=== PATIENT | male | born 1935 | race Caucasian/White ===

== ENCOUNTER 2017-07-29 10:09 | Emergency (ER) | payer MEDICARE, BC ==
[2017-07-29] MEDS ORDERED: Ketorolac 30 MG/ML SDV IM ONE (10:56)
[2017-07-29] MEDS ORDERED: Cyclobenzaprine 10 MG Tab PO ONE (11:01)
[2017-07-29] MEDS ORDERED: Acetaminophen 500 MG Tab PO ONE (11:02)
--- NOTE | 2017-07-29 11:13 | EDM.PDOC ---
ED HPI GENERAL MEDICAL PROBLEM - General Chief Complaint: Back Pain or Injury Stated Complaint: BACK PAIN Time Seen by Provider: 07/29/17 10:45 Source of Information: Reports: Patient History Limitations: Reports: No Limitations - History of Present Illness INITIAL COMMENTS - FREE TEXT/NARRATIVE: c/o LBP x yrs, inc'd x 2d inc'd pain x 2d at L iliac crest into L groin, not down leg, now very stiff he tried an old pain patch that did not help last saw PCP Dr Diallo 1y ago, did have an injection into the back for the 1st time this past summer that did not help has had back surgery x 3 MRI l-spine 09-17-16 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 and moderate loss disc height L5-S1, no new changes last BM 2d ago h/o kidney stones in distant past, no urinary sxs L lower back radiating into LLQ Pain Score (Numeric/FACES): 5 - Related Data Allergies Allergy/AdvReac Type Severity Reaction Status Date / Time pantoprazole sodium Allergy Rash Verified 07/29/17 10:56 [From Protonix] Sulfa (Sulfonamide Allergy Rash Verified 07/29/17 10:56 Antibiotics) Home Meds: Home Meds Calcium Carbonate [Tums] 1,000 mg PO ASDIRECTED PRN 11/22/14 [History] Dorzolamide/Timolol [Cosopt 2%-0.5% Ophth Soln] 1 drop EYEBOTH Q48H 11/22/14 [ History] Lactulose 15 ml PO DAILY 11/22/14 [History] Lipoflavonoid Plus 1 tab PO DAILY 11/22/14 [History] Polyethylene Glycol 3350 [MiraLAX] 1 capful PO DAILY PRN 11/22/14 [History] Sennosides/Docusate Sodium [Sennosides-Docusate Sodium] 1 tab PO DAILY 11/22/14 [History] Zolpidem [Ambien] 10 mg PO BEDTIME 11/22/14 [History] Ciclopirox Olamine [Ciclopirox] 1 applic DAILY 07/29/17 [History] Cyclobenzaprine [Flexeril] 10 mg PO TID PRN #21 tab 07/29/17 [Rx] Social & Family History - Tobacco Use Smoking Status *Q: Never Smoker - Alcohol Use Days Per Week of Alcohol Use: 1 Number of Drinks Per Day: 1 Total Drinks Per Week: 1 - Recreational Drug Use Recreational Drug Use: No Drug Use in Last 12 Months: No ED ROS GENERAL - Review of Systems Review Of Systems: See Below Constitutional: Reports: No Symptoms HEENT: Reports: No Symptoms Respiratory: Reports: No Symptoms Cardiovascular: Reports: No Symptoms Endocrine: Reports: No Symptoms GI/Abdominal: Reports: No Symptoms : Reports: No Symptoms Musculoskeletal: Reports: Back Pain Skin: Reports: No Symptoms Neurological: Reports: No Symptoms Psychiatric: Reports: No Symptoms Hematologic/Lymphatic: Reports: No Symptoms Immunologic: Reports: No Symptoms ED EXAM,LOWER BACK PAIN/INJURY - Physical Exam Exam: See Below Exam Limited By: No Limitations General Appearance: Alert, WD/WN, Moderate Distress GI/Abdominal: Normal Bowel Sounds, Soft, Non-Tender, No Distention (Male) Exam: No Hernia Back Exam: Other (lying stiffly on bed, lifts himself a few inches off of bed with some difficulty, l-spine NT, paravertebral muscles are tight, 1+ tender at L iliac crest, SLR to 45 degrees on L without limitation, patella DTRs could not be ilicted) Course - Vital Signs Last Recorded V/S: Last Vital Signs Temp 36.3 C 07/29/17 10:09 Pulse 79 07/29/17 10:09 Resp 20 07/29/17 10:09 BP 186/88 H 07/29/17 10:09 Pulse Ox 97 07/29/17 10:09 - Orders/Labs/Meds Orders: Active Orders 24 hr Category Date Time Status Abdomen Pelvis wo Cont [CT] Stat Exams 07/29/17 12:20 Ordered Labs: Laboratory Tests 07/29/17 07/29/17 07/29/17 Range/Units 11:19 11:19 11:19 WBC 8.5 (4.5-12.0) X10-3/uL RBC 5.26 (4.30-5.75) x10(6)uL Hgb 14.6 (11.5-15.5) g/dL Hct 43.5 (30.0-51.3) % MCV 82.7 (80-96) fL MCH 27.8 (27.7-33.6) pg MCHC 33.6 (32.2-35.4) g/dL RDW 12.8 (11.5-15.5) % Plt Count 140 (125-369) X10(3)uL MPV 8.8 (7.4-10.4) fL Neut % (Auto) 71.2 (46-82) % Lymph % (Auto) 19.8 (13-37) % Lamb % (Auto) 6.9 (4-12) % Eos % (Auto) 2 (1.0-5.0) % Baso % (Auto) 0 (0-2) % Neut # (Auto) 6.1 (1.6-8.3) # Lymph # (Auto) 1.7 (0.6-5.0) # Lamb # (Auto) 0.6 (0.0-1.3) # Eos # (Auto) 0.1 (0.0-0.8) # Baso # (Auto) 0.0 (0.0-0.2) # Sodium 140 (135-145) mmol/L Potassium 4.4 (3.5-5.3) mmol/L Chloride 103 (100-110) mmol/L Carbon Dioxide 27 (21-32) mmol/L BUN 19 H (7-18) mg/dL Creatinine 1.2 (0.70-1.30) mg/dL Est Cr Clr Drug Dosing 50.69 mL/min Estimated GFR (MDRD) 58 L (>60) BUN/Creatinine Ratio 15.8 (9-20) Glucose 94 (80-116) mg/dL Calcium 8.8 (8.6-10.2) mg/dL Total Bilirubin 0.8 (0.1-1.3) mg/dL AST 17 (5-25) IU/L ALT 21 (12-36) U/L Alkaline Phosphatase 68 (56-112) IU/L C-Reactive Protein < 0.2 L (0.5-0.9) mg/dL Total Protein 6.4 (6.0-8.0) g/dL Albumin 3.8 (3.2-4.6) g/dL Globulin 2.6 g/dL Albumin/Globulin Ratio 1.5 Urine Color (YELLOW) Urine Appearance (CLEAR) Urine pH (5.0-6.5) Ur Specific [place] (1.010-1.025) Urine Protein (NEGATIVE) mg/dL Urine Glucose (UA) (NEGATIVE) mg/dL Urine Ketones (NEGATIVE) mg/dL Urine Occult Blood (NEGATIVE) Urine Nitrite (NEGATIVE) Urine Bilirubin (NEGATIVE) Urine Urobilinogen (NEGATIVE) mg/dL Ur Leukocyte Esterase (NEGATIVE) Urine RBC (0) Urine WBC (0) Ur Squamous Epith Cells (NS,R,O) Urine Bacteria (NS) Acetaminophen (10-30) ug/mL 07/29/17 07/29/17 Range/Units 11:19 11:55 WBC (4.5-12.0) X10-3/uL RBC (4.30-5.75) x10(6)uL Hgb (11.5-15.5) g/dL Hct (30.0-51.3) % MCV (80-96) fL MCH (27.7-33.6) pg MCHC (32.2-35.4) g/dL RDW (11.5-15.5) % Plt Count (125-369) X10(3)uL MPV (7.4-10.4) fL Neut % (Auto) (46-82) % Lymph % (Auto) (13-37) % Lamb % (Auto) (4-12) % Eos % (Auto) (1.0-5.0) % Baso % (Auto) (0-2) % Neut # (Auto) (1.6-8.3) # Lymph # (Auto) (0.6-5.0) # Lamb # (Auto) (0.0-1.3) # Eos # (Auto) (0.0-0.8) # Baso # (Auto) (0.0-0.2) # Sodium (135-145) mmol/L Potassium (3.5-5.3) mmol/L Chloride (100-110) mmol/L Carbon Dioxide (21-32) mmol/L BUN (7-18) mg/dL Creatinine (0.70-1.30) mg/dL Est Cr Clr Drug Dosing mL/min Estimated GFR (MDRD) (>60) BUN/Creatinine Ratio (9-20) Glucose (80-116) mg/dL Calcium (8.6-10.2) mg/dL Total Bilirubin (0.1-1.3) mg/dL AST (5-25) IU/L ALT (12-36) U/L Alkaline Phosphatase (56-112) IU/L C-Reactive Protein (0.5-0.9) mg/dL Total Protein (6.0-8.0) g/dL Albumin (3.2-4.6) g/dL Globulin g/dL Albumin/Globulin Ratio Urine Color Yellow (YELLOW) Urine Appearance Clear (CLEAR) Urine pH 6.0 (5.0-6.5) Ur Specific [place] 1.015 (1.010-1.025) Urine Protein Negative (NEGATIVE) mg/dL Urine Glucose (UA) Normal (NEGATIVE) mg/dL Urine Ketones Negative (NEGATIVE) mg/dL Urine Occult Blood Negative (NEGATIVE) Urine Nitrite Negative (NEGATIVE) Urine Bilirubin Negative (NEGATIVE) Urine Urobilinogen Normal (NEGATIVE) mg/dL Ur Leukocyte Esterase Negative (NEGATIVE) Urine RBC 0-5 (0) Urine WBC Not seen (0) Ur Squamous Epith Cells Rare (NS,R,O) Urine Bacteria Rare H (NS) Acetaminophen < 2 L (10-30) ug/mL Meds: Medications Discontinued Medications Generic Name Dose Route Start Last Admin Trade Name Freq PRN Reason Stop Dose Admin Acetaminophen 1,000 mg 07/29/17 11:02 07/29/17 11:21 Tylenol Extra Strength PO 07/29/17 11:03 1,000 mg ONETIME ONE Administration Cyclobenzaprine HCl 10 mg 07/29/17 11:01 07/29/17 11:21 Flexeril PO 07/29/17 11:02 10 mg ONETIME ONE Administration Ketorolac Tromethamine 30 mg 07/29/17 10:56 07/29/17 11:22 Toradol IM 07/29/17 10:57 30 mg ONETIME ONE Administration - Re-Assessments/Exams Free Text/Narrative Re-Assessment/Exam: 07/29/17 13:27 CT abd/pelvis without obtained as pt had 0-5 RBC on u/a and had 2 kidney stones removed by Dr Núñez this past spring, however CT was neg for stones, did show enlarged bladder with 10 x 12 x 15 cm and small prostate. Pt had a large void on return from CT and bladder scan showed only 275 cc, pt did have relief of pressure in his groin. h/o prostate CA 2011 with radiation, never had a garay catheter after meds (Toradol, APAP, Flexeril) back is now quite soft without tenderness, spasm is relieved pain most c/w muscle spasm secondary to his extensive lumbar DJD (fusion L3-[address]) Departure - Departure Time of Disposition: 13:31 Disposition: Home, Self-Care 01 Condition: Good Clinical Impression: Back muscle spasm - Discharge Information Prescriptions: Cyclobenzaprine [Flexeril] 10 mg PO TID PRN #21 tab PRN Reason: Pain Instructions: Muscle Cramps and Spasms Forms: ED Department Discharge Additional Instructions: For pain and inflammation, take acetaminophen 500 mg 2 tabs 4 times a day for 1 week, longer if needed. For back spasm, take cyclobenzaprine 10 mg 1 tab 3 times a day as needed. Use ice for 10 minutes 4 times a day. Sleep on a firm mattress. See your doctor in 1 week. Call your Physician or Return to Emergency Department if: * Your condition worsens in any way. * You develop fever greater than 100.4. * You have vomitting that does not stop with medications. * You have pain that is not controlled with medications. - My Orders Last 24 Hours: My Active Orders 07/29/17 12:20 Abdomen Pelvis wo Cont [CT] Stat - Assessment/Plan Last 24 Hours: My Active Orders 07/29/17 12:20 Abdomen Pelvis wo Cont [CT] Stat
--- NOTE | 2017-07-29 14:04 | CT ---
INDICATION: Left flank and groin pain, hematuria, history of kidney stones. CT ABDOMEN AND PELVIS WITHOUT CONTRAST: Spiral 1.25-mm axial sections were obtained through the abdomen and pelvis with sagittal and coronal reconstructions, with renal calculus protocol, 07/29/2017, and compared with . Total Exam DLP = 1738.56 mGy-cm. There is some linear density at the middle lobe, which may represent fibrosis and possibly some linear atelectasis. A definite active infiltrate or effusion was not identified. The gallbladder is absent, compatible with history of its removal. The heart appeared to be slightly prominent in size and probably somewhat increased in size, compared with the previous examination of 2010 (02/06/2011). The liver was unremarkable. The common bile duct is normal in caliber post cholecystectomy. The pancreas is relatively diminutive in size, as previously. The spleen was unremarkable. The adrenal glands appear essentially unchanged and most likely within normal limits. There is question of a small adrenal adenoma on the left, however. No definite retroperitoneal masses were identified. Retroperitoneal lymphadenopathy is mild and nonspecific. Calcifications are noted in the aorta, iliac, and splenic arteries. Multicystic changes are noted in the kidneys, with increased size of the cysts in general. An upper pole cyst on the right measured a maximum craniocaudad of 43 mm by approximately 3 cm maximum. This cyst extends in an elongated oval into the parapelvic area slightly. It is not obstructive. Another 29-mm cyst is noted posteriorly mostly exophytic off the cortex of the lower middle pole of the right kidney. It measures approximately 32 mm maximally and craniocaudad diameter, with only 29 mm transversely. A 23-mm cyst of the lateral posterior cortex, mostly exophytic, in the left kidney is noted, also appearing increased in size, compared with the previous examination. There is suggestion of a very tiny cyst anteriorly off the upper pole of the left kidney. Multiple calculi are noted in the kidneys, measuring 1.9 mm posterior mid pole right kidney and 5.6 x 11 mm in the upper middle pole posteriorly of the right kidney. A very tiny additional calculus medial cortex is noted in the right kidney on axial image #108. An additional 3.4-mm calculus is noted in the anterolateral lower middle pole cortex of the right kidney. At the left kidney, there is a 2-mm and a 3.8 mm calculus posteriorly and posterolaterally respectively in the mid pole, with a very tiny calculus suggested in the upper middle pole laterally on axial image #127 and two small additional tiny calculi suggested on the order of 2 to 2.7 mm in the upper middle pole medial cortex of the left kidney. No evidence of obstructive uropathy was identified, however. There is fat stranding bilaterally and some irregularities of the renal cortices , compatible with renal cortical scarring. The urinary bladder showed no evidence of calculi, nor did the ureters. However , the urinary bladder was dilated in appearance and there may be urinary retention. It measured approximately 15 x 10.7 x 12 cm. No definite thickening of the urinary bladder wall was seen. The appendix is visualized on axial images #196 through #216, and appeared to be normal, with maximum diameter of approximately 6.8 mm. No specific etiology for the patient's left flank pain could be identified. No evidence of bowel obstruction was seen. No additional mass lesions, organomegaly, or free fluid collections were identified in the abdomen or pelvis. IMPRESSION: 1. Renal calcinosis, nonobstructive - no obstructive uropathy seen. 2. Distended urinary bladder, question urinary retention. No intracystic calculi identified. No urinary bladder wall thickening. 3. Multicystic changes in the kidneys, with increased size of the cysts. 4. Cannot exclude the possibility of pyelonephritis - correlate clinically. 5. ASD. 6. 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 7. Linear densities middle lobe likely linear atelectatic and/or fibrotic in nature. 8. Post cholecystectomy. 9. Transverse colon again noted to be somewhat prominent, of questionable significance clinically. 10. Renal cortical scarring. CT PELVIS: Examination of the pelvis was obtained by CT, as noted above, revealing degenerative changes and disk disease lumbosacral spine. The urinary bladder appears to be distended. Arterial calcifications are noted. A mild degree of sigmoid diverticulosis may be present. No evidence of diverticulitis is seen. Report was called to Dr. Snider at approximately 1312 hours, 07/29/2017. TANGELA
[2017-07-29 14:33] VITALS: BP 154/89
== END 2017-07-29 13:51 | disposition home or self-care (01) ==
LOC: FB.ED 10:09
DX: M62.830 Muscle spasm of back (principal); Z88.2 Allergy status to sulfonamides; Z79.899 Other long term (current) drug therapy; Z88.8 Allergy status to other drugs, medicaments and biological substances; Z85.46 Personal history of malignant neoplasm of prostate
CPT/HCPCS: 36415; 51798; 74176; 80053; 81001; 85025; 86140; 96372; 99284; A9270; G0480; J1885; 99283

== ENCOUNTER 2019-01-11 10:05 | Observation (INO) | payer MEDICARE, BC ==
[2019-01-11] MEDS ORDERED: Sodium Chloride 0.9% 500 ML IV ONE (10:27)
--- NOTE | 2019-01-11 10:33 | EDM.PDOC ---
ED HPI GENERAL MEDICAL PROBLEM - General Chief Complaint: Genitourinary Problem Stated Complaint: PASSING BLOOD Time Seen by Provider: 01/11/19 10:27 Source of Information: Reports: Patient History Limitations: Reports: No Limitations - History of Present Illness INITIAL COMMENTS - FREE TEXT/NARRATIVE: Presents with generalized weakness and worsening hematuria since laser kidney stone removal (right) on 12/30/[address] Rice @[facility]. Complains of intermittent right sided abdominal pain. Endorses dysuria, urgency and urinary frequency. Denies N/V or F/C. Onset Date: 12/30/18 Duration: Week(s): (2) - Related Data Allergies Allergy/AdvReac Type Severity Reaction Status Date / Time pantoprazole sodium Allergy Rash Verified 01/11/19 10:13 [From Protonix] Sulfa (Sulfonamide Allergy Rash Verified 01/11/19 10:13 Antibiotics) Home Meds: Home Meds Zolpidem [Ambien] 10 mg PO BEDTIME 11/22/14 [History] Lisinopril/Hydrochlorothiazide [Lisinopril-Hctz 10-12.5 mg Tab] 1 each PO BEDTIME 01/11/19 [History] Past Medical History HEENT History: Reports: Cataract, Glaucoma, Other (See Below) Other HEENT History: ringing in ears, has bilat cataracts Cardiovascular History: Reports: Hypertension Gastrointestinal History: Reports: Chronic Constipation, GERD Genitourinary History: Reports: Prostate Disorder, Renal Calculus, Other (See Below) Other Genitourinary History: hx prostate CA, has had radiation in past. Musculoskeletal History: Reports: Arthritis, Back Pain, Chronic, Fracture, Other (See Below) Other Musculoskeletal History: fx R hand, hx bursitis bilat hips Neurological History: Reports: None Endocrine/Metabolic History: Reports: Obesity/BMI 30+ Oncologic (Cancer) History: Reports: Prostate Other Oncologic History: Has had prostate CA in past, had radiation for same. Dermatologic History: Reports: Other (See Below) Other Dermatologic History: rash to groin - Past Surgical History Cardiovascular Surgical History: Reports: None GI Surgical History: Reports: Cholecystectomy, Colonoscopy Male Surgical History: Reports: Renal Calculus Neurological Surgical History: Reports: Other (See Below) Other Neurological Surgeries/Procedures: back surgery x 3 Musculoskeletal Surgical History: Reports: None Dermatological Surgical History: Reports: None Social & Family History - Family History Family Medical History: Noncontributory - Tobacco Use Smoking Status *Q: Never Smoker Second Hand Smoke Exposure: No - Caffeine Use Caffeine Use: Reports: Coffee - Recreational Drug Use Recreational Drug Use: No ED ROS GENERAL - Review of Systems Review Of Systems: ROS reveals no pertinent complaints other than HPI. Constitutional: Reports: Weakness. Denies: Fever, Chills GI/Abdominal: Reports: Abdominal Pain (RUQ). Denies: Nausea, Vomiting : Reports: Dysuria, Frequency, Hematuria, Pain, Urgency Neurological: Reports: Other (No focal weakness). Denies: Confusion ED EXAM, RENAL/ - Physical Exam Exam: See Below Exam Limited By: No Limitations General Appearance: Alert, WD/WN, No Apparent Distress Eye Exam: Bilateral Eye: EOMI, PERRL Ears: Normal External Exam Nose: Normal Inspection Throat/Mouth: Normal Inspection, No Airway Compromise Head: Atraumatic, Normocephalic Neck: Supple Respiratory/Chest: No Respiratory Distress, Lungs Clear, Normal Breath Sounds Cardiovascular: Regular Rate, Rhythm, No Murmur GI/Abdominal: Normal Bowel Sounds, Soft, No Distention, Tender (mild RLQ). No: Guarding, Rebound Back Exam: Full Range of Motion Extremities: Normal Range of Motion Neurological: Alert, CN II-XII Intact, Normal Cognition, No Motor/Sensory Deficits Skin Exam: Warm, Dry, Intact EKG INTERPRETATION EKG Date: 01/11/19 Time: 10:29 Rhythm: NSR Rate (Beats/Min): 79 [place]: Normal P-Wave: Present QRS: Normal ST-T: Normal QT: Normal Course - Vital Signs Last Recorded V/S: Last Vital Signs Temp 37.0 C 01/11/19 11:52 Pulse 78 01/11/19 11:52 Resp 18 01/11/19 11:52 BP 169/82 H 01/11/19 11:52 Pulse Ox 99 01/11/19 11:52 - Orders/Labs/Meds Orders: Active Orders 24 hr Category Date Time Status Admission Status [Patient Status] [ADT] Routine ADT 01/11/19 13:45 Ordered EKG Documentation Completion [RC] STAT Care 01/11/19 10:26 Active Martin Catheter Insertion [Insert Urinary Catheter] [OM. Care 01/11/19 11:45 Ordered PC] Q24H Urinary Catheter Assessment [RC] QSHIFT Care 01/11/19 11:40 Active CULTURE BLOOD [BC] Urgent Lab 01/11/19 10:55 Received CULTURE BLOOD [BC] Urgent Lab 01/11/19 11:00 Received CULTURE URINE [RM] Stat Lab 01/11/19 11:55 Received Sodium Chloride 0.9% [Saline Flush] Med 01/11/19 10:26 Active 10 ml FLUSH ASDIRECTED PRN Blood Culture x2 Reflex Set [OM.PC] Urgent Oth 01/11/19 10:26 Ordered Saline Lock Insert [OM.PC] Routine Oth 01/11/19 10:26 Ordered Medication Orders Sodium Chloride (Saline Flush) 10 ml FLUSH ASDIRECTED PRN PRN Reason: Keep Vein Open Last Admin: 01/11/19 12:49 Dose: 10 ml Admin: 01/11/19 10:55 Dose: 10 ml Labs: Laboratory Tests 01/11/19 01/11/19 01/11/19 Range/Units 10:55 10:55 10:55 WBC 10.1 (4.5-12.0) X10-3/uL RBC 4.93 (4.30-5.75) x10(6)uL Hgb 14.2 (13.5-17.8) g/dL Hct 42.0 (30.0-51.3) % MCV 85.1 (80-96) fL MCH 28.9 (27.7-33.6) pg MCHC 34.0 (32.2-35.4) g/dL RDW 13.4 (11.5-15.5) % Plt Count 135 (125-369) X10(3)uL MPV 8.6 (7.4-10.4) fL Neut % (Auto) 71.9 (46-82) % Lymph % (Auto) 15.1 (13-37) % [place] % (Auto) 10.7 (4-12) % Eos % (Auto) 2 (1.0-5.0) % Baso % (Auto) 1 (0-2) % Neut # (Auto) 7.2 (1.6-8.3) # Lymph # (Auto) 1.5 (0.6-5.0) # [place] # (Auto) 1.1 (0.0-1.3) # Eos # (Auto) 0.2 (0.0-0.8) # Baso # (Auto) 0.1 (0.0-0.2) # PT 9.4 (8.7-11.1) INR 0.97 (0.89-1.13) Sodium 140 (135-145) mmol/L Potassium 4.1 (3.5-5.3) mmol/L Chloride 105 (100-110) mmol/L Carbon Dioxide 25 (21-32) mmol/L BUN 18 (7-18) mg/dL Creatinine 1.2 (0.70-1.30) mg/dL Est Cr Clr Drug Dosing 49.00 mL/min Estimated GFR (MDRD) 58 L (>60) BUN/Creatinine Ratio 15.0 (9-20) Glucose 90 (80-116) mg/dL Lactic Acid (0.4-2.2) mmol/L Calcium 8.8 (8.6-10.2) mg/dL Total Bilirubin 0.7 (0.1-1.3) mg/dL AST 13 D (5-25) IU/L ALT 22 (12-36) U/L Alkaline Phosphatase 71 (56-112) IU/L Troponin I (<0.017-0.056) ng/mL Total Protein 6.2 (6.0-8.0) g/dL Albumin 3.1 L (3.2-4.6) g/dL Globulin 3.1 g/dL Albumin/Globulin Ratio 1.0 Urine Color (YELLOW) Urine Appearance (CLEAR) Urine pH (5.0-6.5) Ur Specific [place] (1.010-1.025) Urine Protein (NEGATIVE) mg/dL Urine Glucose (UA) (NORMAL) mg/dL Urine Ketones (NEGATIVE) mg/dL Urine Occult Blood (NEGATIVE) Urine Nitrite (NEGATIVE) Urine Bilirubin (NEGATIVE) Urine Urobilinogen (NEGATIVE) mg/dL Ur Leukocyte Esterase (NEGATIVE) Urine RBC (0-5) Urine WBC (0-5) Urine Bacteria (NS) Urine Yeast (NS) 01/11/19 01/11/19 01/11/19 Range/Units 10:55 10:55 11:55 WBC (4.5-12.0) X10-3/uL RBC (4.30-5.75) x10(6)uL Hgb (13.5-17.8) g/dL Hct (30.0-51.3) % MCV (80-96) fL MCH (27.7-33.6) pg MCHC (32.2-35.4) g/dL RDW (11.5-15.5) % Plt Count (125-369) X10(3)uL MPV (7.4-10.4) fL Neut % (Auto) (46-82) % Lymph % (Auto) (13-37) % [place] % (Auto) (4-12) % Eos % (Auto) (1.0-5.0) % Baso % (Auto) (0-2) % Neut # (Auto) (1.6-8.3) # Lymph # (Auto) (0.6-5.0) # [place] # (Auto) (0.0-1.3) # Eos # (Auto) (0.0-0.8) # Baso # (Auto) (0.0-0.2) # PT (8.7-11.1) INR (0.89-1.13) Sodium (135-145) mmol/L Potassium (3.5-5.3) mmol/L Chloride (100-110) mmol/L Carbon Dioxide (21-32) mmol/L BUN (7-18) mg/dL Creatinine (0.70-1.30) mg/dL Est Cr Clr Drug Dosing mL/min Estimated GFR (MDRD) (>60) BUN/Creatinine Ratio (9-20) Glucose (80-116) mg/dL Lactic Acid 1.0 (0.4-2.2) mmol/L Calcium (8.6-10.2) mg/dL Total Bilirubin (0.1-1.3) mg/dL AST (5-25) IU/L ALT (12-36) U/L Alkaline Phosphatase (56-112) IU/L Troponin I 0.024 (<0.017-0.056) ng/mL Total Protein (6.0-8.0) g/dL Albumin (3.2-4.6) g/dL Globulin g/dL Albumin/Globulin Ratio Urine Color Yellow (YELLOW) Urine Appearance Cloudy (CLEAR) Urine pH 5.0 (5.0-6.5) Ur Specific [place] 1.015 (1.010-1.025) Urine Protein 100 H (NEGATIVE) mg/dL Urine Glucose (UA) Normal (NORMAL) mg/dL Urine Ketones Negative (NEGATIVE) mg/dL Urine Occult Blood Large H (NEGATIVE) Urine Nitrite Negative (NEGATIVE) Urine Bilirubin Negative (NEGATIVE) Urine Urobilinogen Normal (NEGATIVE) mg/dL Ur Leukocyte Esterase Large H (NEGATIVE) Urine RBC Packed H (0-5) Urine WBC Packed H (0-5) Urine Bacteria Many H (NS) Urine Yeast Moderate H (NS) Meds: Medications Generic Name Dose Route Start Last Admin Trade Name Freq PRN Reason Stop Dose Admin Sodium Chloride 10 ml 01/11/19 10:26 01/11/19 12:49 Saline Flush FLUSH 10 ml ASDIRECTED PRN Administration Keep Vein Open Discontinued Medications Generic Name Dose Route Start Last Admin Trade Name Freq PRN Reason Stop Dose Admin Ceftriaxone Sodium 2 gm 01/11/19 12:37 01/11/19 12:44 Rocephin IVPUSH 01/11/19 12:38 2 gm ONETIME ONE Administration Sodium Chloride 500 mls @ 500 mls/hr 01/11/19 10:27 01/11/19 10:57 Normal Saline IV 01/11/19 11:26 500 mls/hr .BOLUS ONE Administration - Radiology Interpretation Free Text/Narrative:: CT Abd/Pelvis w/o contrast: mild-mod right obstructive uropathy. Appendix mildly dilated to 8.7 mm (8.0 mm on 11/25/18), no periappendiceal inflammatory changes. - Re-Assessments/Exams Free Text/Narrative Re-Assessment/Exam: 01/11/19 13:54 Dr. Pettit ([facility]) reviewed the CT scan, urinary collecting system appears as expected, advises Cipro, Flomax and Oxybutinin. Dr. Garcia will consult during admission, but doubts diagnosis of acute appendicitis from description of exam and CT findings. Dr. Concepcion agrees to admit patient to observation @[facility]. Departure - Departure Time of Disposition: 13:58 Disposition: Refer to Observation Condition: Good Clinical Impression: Generalized weakness UTI (urinary tract infection) Qualifiers: Urinary tract infection type: acute cystitis Hematuria presence: with hematuria Qualified Code(s): N30.01 - Acute cystitis with hematuria - Discharge Information *PRESCRIPTION DRUG MONITORING PROGRAM REVIEWED*: No *COPY OF PRESCRIPTION DRUG MONITORING REPORT IN PATIENT SHREYAS: Not Applicable Referrals: Bowen Diallo MD [Primary Care Provider] - Forms: ED Department Discharge - My Orders Last 24 Hours: My Active Orders 01/11/19 10:26 EKG Documentation Completion [RC] STAT Sodium Chloride 0.9% [Saline Flush] 10 ml FLUSH ASDIRECTED PRN Blood Culture x2 Reflex Set [OM.PC] Urgent Saline Lock Insert [OM.PC] Routine 01/11/19 10:55 CULTURE BLOOD [BC] Urgent 01/11/19 11:00 CULTURE BLOOD [BC] Urgent 01/11/19 11:40 Urinary Catheter Assessment [RC] QSHIFT 01/11/19 11:45 Martin Catheter Insertion [Insert Urinary Catheter] [OM.PC] Q24H 01/11/19 11:55 CULTURE URINE [RM] Stat 01/11/19 13:45 Admission Status [Patient Status] [ADT] Routine - Assessment/Plan Last 24 Hours: My Active Orders 01/11/19 10:26 EKG Documentation Completion [RC] STAT Sodium Chloride 0.9% [Saline Flush] 10 ml FLUSH ASDIRECTED PRN Blood Culture x2 Reflex Set [OM.PC] Urgent Saline Lock Insert [OM.PC] Routine 01/11/19 10:55 CULTURE BLOOD [BC] Urgent 01/11/19 11:00 CULTURE BLOOD [BC] Urgent 01/11/19 11:40 Urinary Catheter Assessment [RC] QSHIFT 01/11/19 11:45 Martin Catheter Insertion [Insert Urinary Catheter] [OM.PC] Q24H 01/11/19 11:55 CULTURE URINE [RM] Stat 01/11/19 13:45 Admission Status [Patient Status] [ADT] Routine
[2019-01-11] MEDS: Sodium Chloride 0.9% 10 ML Syringe FLUSH PRN ×2 (10:55→12:49)
[2019-01-11] MEDS ORDERED: cefTRIAXone 2 GM Vial IVPUSH ONE (12:37)
--- NOTE | 2019-01-11 13:16 | CT ---
INDICATION: Right upper quadrant pain, recent laser removal of kidney stone, right-sided abdominal pain. CT ABDOMEN AND PELVIS WITHOUT CONTRAST: Spiral 2.5 mm axial sections were obtained through the abdomen and pelvis without contrast, 01/11/19 - and compared with 11/25/18. Total exam DLP = 1,306.96 mGy-cm. Scarring is suggested along the major fissure on the right, extending along the middle lobe and in the middle lobe as well. A lesser degree of scarring is seen in the lingula. No definite active infiltrate or effusion was seen. The heart did not appear grossly enlarged. No definite pericardial effusion was seen. The liver has a grossly normal appearance with clips at the cystic duct and absence of the gallbladder, compatible with cholecystectomy. The adrenal glands appear to be normal. At the upper pole of the right kidney, there is noted a moderate sized low density lesion compatible with a cyst of simple type. Another moderate sized cyst is noted posteriorly off the lower middle pole cortex on the right and off the mid pole cortex posterolaterally on the left. A ureteral stent is noted in place on the right with its proximal pigtail in the renal pelvis and distal pigtail in the urinary bladder. The urinary bladder wall was thickened, raising question of cystitis - correlate clinically. A calcification is noted in the left posterior urinary bladder, seen on axial image #179 and measuring approximately 5.1 mm, most likely representing a previously passed renal calculus - correlate clinically. There is periureteral fat stranding noted on the right with relatively distended right renal pelvis now seen. This raises question of a degree of obstruction on the right. Renal fascial thickening is noted bilaterally. There are noted multiple tiny calcifications on the left with a few tiny calcifications also noted on the right, most notable on axial image #93. The appendix is again noted to be somewhat prominent in diameter at approximately 8.7 mm, compared with 8 mm on the previous study. A very minimal degree of appendicitis would be difficult to exclude; however, no gross periappendiceal fat stranding or abscess formation was noted. No evidence of free air or bowel obstruction was seen. There is noted fusion of the L3 and L4 vertebral bodies with hypertrophic degenerative changes and disk disease in the thoracolumbosacral spine. IMPRESSION: 1. Findings suggest a degree of obstructive uropathy on the right, despite the presence of a ureteral stent. Inflammatory process may also be present. 2. ASD with aortic, splenic, iliac, and femoral artery calcifications. 3. Post cholecystectomy. 4. Renal calcinosis of mild degree. 5. Probable cystic changes at the kidneys, likely simple, present previously. 6. Appendix somewhat dilated, as previously. Cannot exclude minimal or early appendicitis. 7. Thickening of the wall of the urinary bladder, raising question of cystitis. 8. Right ureteral stent noted in place. 9. A calcification is noted in the urinary bladder on the left, which may represent a recently passed or previously passed renal calculus. 10. Degenerative changes, disk disease, and fusion noted thoracolumbosacral spine. Report was called to Dr. Lieberman at approximately 1150 hours on 01/11/19. [facility]
[2019-01-11] MEDS ORDERED: Zolpidem 5 MG Tab PO PRN (14:08)
[2019-01-11] MEDS ORDERED: Sodium Chloride 0.9% 1,000 ML IV SCH (14:15)
[2019-01-11] MEDS: Oxybutynin 5 MG Tab.ER PO SCH (15:00)
[2019-01-11] MEDS: Tamsulosin 0.4 MG Cap.ER PO SCH (15:00)
--- NOTE | 2019-01-11 16:39 | PCM.HP ---
<Chloé Diamond - Last Filed: 01/11/19 16:34> H&P History of Present Illness - General Date of Service: 01/11/19 Admit Problem/Dx: 83 year old male admitted to the hospital for UTI. He had laser treatment of a kidney stone 12/30/18, and reported hematuria since that time. This morning he decided it had been going on along enough so he should come to the ED for evaluation. At that time it was noted he also had a UTI. The patient is full code. He lives at home with his . They are able to do their own ADLs. 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 Source of Information: Patient, Family, Old Records - History of Present Illness Onset of Symptoms: Reports: Other (12/30/18) Duration of Symptoms: Reports: Week(s): Location: Reports: Other (urination) Quality: Reports: Burning Severity: Mild Context: Denies: Sick Contact Associated Symptoms: Denies: Fever/Chills Right Flank Pain Score (Numeric/FACES): 4 - Related Data Allergies/Adverse Reactions: Allergies Allergy/AdvReac Type Severity Reaction Status Date / Time pantoprazole sodium Allergy Rash Verified 01/11/19 14:10 [From Protonix] Sulfa (Sulfonamide Allergy Rash Verified 01/11/19 14:10 Antibiotics) Home Medications: Home Meds Zolpidem [Ambien] 10 mg PO BEDTIME 11/22/14 [History] Lisinopril/Hydrochlorothiazide [Lisinopril-Hctz 10-12.5 mg Tab] 0.5 tab PO BEDTIME PRN 01/11/19 [History] Past Medical History HEENT History: Reports: Cataract, Glaucoma, Other (See Below) Other HEENT History: ringing in ears, has bilat cataracts Cardiovascular History: Reports: Hypertension Gastrointestinal History: Reports: Chronic Constipation, GERD Genitourinary History: Reports: Prostate Disorder, Renal Calculus, Other (See Below) Other Genitourinary History: hx prostate CA, has had radiation in past. Musculoskeletal History: Reports: Arthritis, Back Pain, Chronic (has had 3 back surgeries), Fracture, Other (See Below) Other Musculoskeletal History: fx R hand, hx bursitis bilat hips Neurological History: Reports: None Endocrine/Metabolic History: Reports: Obesity/BMI 30+ Oncologic (Cancer) History: Reports: Prostate Other Oncologic History: Has had prostate CA in past, had radiation for same. Dermatologic History: Reports: Other (See Below) Other Dermatologic History: rash to groin - Infectious Disease History Infectious Disease History: Reports: Chicken Pox, Shingles - Past Surgical History HEENT Surgical History: Reports: Cataract Surgery Cardiovascular Surgical History: Reports: None GI Surgical History: Reports: Cholecystectomy, Colonoscopy Male Surgical History: Reports: Renal Calculus Neurological Surgical History: Reports: Other (See Below) Other Neurological Surgeries/Procedures: back surgery x 3 Musculoskeletal Surgical History: Reports: None Dermatological Surgical History: Reports: None Social & Family History - Family History Family Medical History: Noncontributory - Tobacco Use Smoking Status *Q: Former Smoker Used Tobacco, but Quit: Yes Month/Year Tobacco Last Used: 1959 Second Hand Smoke Exposure: No - Caffeine Use Caffeine Use: Reports: Coffee - Recreational Drug Use Recreational Drug Use: No H&P Review of Systems - Review of Systems: Review Of Systems: See Below General: Reports: Weakness (generalized). Denies: Fever, Chills HEENT: Reports: No Symptoms Pulmonary: Denies: Shortness of Breath, Cough Cardiovascular: Denies: Chest Pain, Palpitations Gastrointestinal: Reports: Constipation. Denies: Abdominal Pain, Diarrhea Genitourinary: Reports: Burning, Hematuria. Denies: Frequency, Urgency Musculoskeletal: Reports: No Symptoms Skin: Reports: No Symptoms Psychiatric: Reports: No Symptoms Neurological: Reports: No Symptoms Exam - Exam Exam: See Below - Vital Signs Vital Signs: Last Vital Signs Temp 36.8 C 01/11/19 13:40 Pulse 73 01/11/19 13:40 Resp 18 01/11/19 13:40 BP 160/76 H 01/11/19 13:40 Pulse Ox 98 01/11/19 13:40 Weight: 217 lb 4.8 oz - Exam Quality Assessment: No: Supplemental Oxygen General: Alert, Oriented HEENT: EOMI, TMs Clear Neck: Supple, Trachea Midline Lungs: Clear to Auscultation, Normal Respiratory Effort Cardiovascular: Regular Rate, Regular Rhythm GI/Abdominal Exam: Normal Bowel Sounds, Soft, Non-Tender, No Distention Back Exam: No: CVA Tenderness (R), CVA Tenderness (L) Extremities: Pedal Edema (1+ pitting edema to lower extremities bilaterally) Skin: Warm, Dry, Intact Neuro Extensive - Mental Status: Alert, Oriented x3 DTR: 0: Achilles (R) Psychiatric: Alert - Patient Data Lab Results Last 24 hrs: Laboratory Results - last 24 hr 01/11/19 01/11/19 01/11/19 Range/Units 10:55 10:55 10:55 WBC 10.1 (4.5-12.0) X10-3/uL RBC 4.93 (4.30-5.75) x10(6)uL Hgb 14.2 (13.5-17.8) g/dL Hct 42.0 (30.0-51.3) % MCV 85.1 (80-96) fL MCH 28.9 (27.7-33.6) pg MCHC 34.0 (32.2-35.4) g/dL RDW 13.4 (11.5-15.5) % Plt Count 135 (125-369) X10(3)uL MPV 8.6 (7.4-10.4) fL Neut % (Auto) 71.9 (46-82) % Lymph % (Auto) 15.1 (13-37) % [place] % (Auto) 10.7 (4-12) % Eos % (Auto) 2 (1.0-5.0) % Baso % (Auto) 1 (0-2) % Neut # (Auto) 7.2 (1.6-8.3) # Lymph # (Auto) 1.5 (0.6-5.0) # [place] # (Auto) 1.1 (0.0-1.3) # Eos # (Auto) 0.2 (0.0-0.8) # Baso # (Auto) 0.1 (0.0-0.2) # PT 9.4 (8.7-11.1) INR 0.97 (0.89-1.13) Sodium 140 (135-145) mmol/L Potassium 4.1 (3.5-5.3) mmol/L Chloride 105 (100-110) mmol/L Carbon Dioxide 25 (21-32) mmol/L BUN 18 (7-18) mg/dL Creatinine 1.2 (0.70-1.30) mg/dL Est Cr Clr Drug Dosing 49.00 mL/min Estimated GFR (MDRD) 58 L (>60) BUN/Creatinine Ratio 15.0 (9-20) Glucose 90 (80-116) mg/dL Lactic Acid (0.4-2.2) mmol/L Calcium 8.8 (8.6-10.2) mg/dL Total Bilirubin 0.7 (0.1-1.3) mg/dL AST 13 D (5-25) IU/L ALT 22 (12-36) U/L Alkaline Phosphatase 71 (56-112) IU/L Troponin I (<0.017-0.056) ng/mL Total Protein 6.2 (6.0-8.0) g/dL Albumin 3.1 L (3.2-4.6) g/dL Globulin 3.1 g/dL Albumin/Globulin Ratio 1.0 Urine Color (YELLOW) Urine Appearance (CLEAR) Urine pH (5.0-6.5) Ur Specific [place] (1.010-1.025) Urine Protein (NEGATIVE) mg/dL Urine Glucose (UA) (NORMAL) mg/dL Urine Ketones (NEGATIVE) mg/dL Urine Occult Blood (NEGATIVE) Urine Nitrite (NEGATIVE) Urine Bilirubin (NEGATIVE) Urine Urobilinogen (NEGATIVE) mg/dL Ur Leukocyte Esterase (NEGATIVE) Urine RBC (0-5) Urine WBC (0-5) Urine Bacteria (NS) Urine Yeast (NS) 01/11/19 01/11/19 01/11/19 Range/Units 10:55 10:55 11:55 WBC (4.5-12.0) X10-3/uL RBC (4.30-5.75) x10(6)uL Hgb (13.5-17.8) g/dL Hct (30.0-51.3) % MCV (80-96) fL MCH (27.7-33.6) pg MCHC (32.2-35.4) g/dL RDW (11.5-15.5) % Plt Count (125-369) X10(3)uL MPV (7.4-10.4) fL Neut % (Auto) (46-82) % Lymph % (Auto) (13-37) % [place] % (Auto) (4-12) % Eos % (Auto) (1.0-5.0) % Baso % (Auto) (0-2) % Neut # (Auto) (1.6-8.3) # Lymph # (Auto) (0.6-5.0) # [place] # (Auto) (0.0-1.3) # Eos # (Auto) (0.0-0.8) # Baso # (Auto) (0.0-0.2) # PT (8.7-11.1) INR (0.89-1.13) Sodium (135-145) mmol/L Potassium (3.5-5.3) mmol/L Chloride (100-110) mmol/L Carbon Dioxide (21-32) mmol/L BUN (7-18) mg/dL Creatinine (0.70-1.30) mg/dL Est Cr Clr Drug Dosing mL/min Estimated GFR (MDRD) (>60) BUN/Creatinine Ratio (9-20) Glucose (80-116) mg/dL Lactic Acid 1.0 (0.4-2.2) mmol/L Calcium (8.6-10.2) mg/dL Total Bilirubin (0.1-1.3) mg/dL AST (5-25) IU/L ALT (12-36) U/L Alkaline Phosphatase (56-112) IU/L Troponin I 0.024 (<0.017-0.056) ng/mL Total Protein (6.0-8.0) g/dL Albumin (3.2-4.6) g/dL Globulin g/dL Albumin/Globulin Ratio Urine Color Yellow (YELLOW) Urine Appearance Cloudy (CLEAR) Urine pH 5.0 (5.0-6.5) Ur Specific [place] 1.015 (1.010-1.025) Urine Protein 100 H (NEGATIVE) mg/dL Urine Glucose (UA) Normal (NORMAL) mg/dL Urine Ketones Negative (NEGATIVE) mg/dL Urine Occult Blood Large H (NEGATIVE) Urine Nitrite Negative (NEGATIVE) Urine Bilirubin Negative (NEGATIVE) Urine Urobilinogen Normal (NEGATIVE) mg/dL Ur Leukocyte Esterase Large H (NEGATIVE) Urine RBC Packed H (0-5) Urine WBC Packed H (0-5) Urine Bacteria Many H (NS) Urine Yeast Moderate H (NS) Result Diagrams: 01/11/19 10:55 01/11/19 10:55 - Problem List (1) Generalized weakness SNOMED Code(s): 30240955 ICD Code: R53.1 - WEAKNESS Status: Acute Current Visit: Yes (2) UTI (urinary tract infection) SNOMED Code(s): 44310044 ICD Code: N39.0 - URINARY TRACT INFECTION, SITE NOT SPECIFIED Status: Acute Current Visit: Yes Qualifiers: Urinary tract infection type: acute cystitis Hematuria presence: with hematuria Qualified Code(s): N30.01 - Acute cystitis with hematuria (3) Back muscle spasm SNOMED Code(s): 516748694 ICD Code: M62.830 - MUSCLE SPASM OF BACK Status: Acute Current Visit: No Problem List Initiated/Reviewed/Updated: Yes Orders Last 24hrs: 1. Full code 2. Low sodium diet 3. Up ad patricia 4. Continue Cipro 500 mg BID 5. Flomax <Chai Concepcion - Last Filed: 01/11/19 16:48> H&P History of Present Illness - General Admit Problem/Dx: Admission Diagnosis/Problem Admission Diagnosis/Problem Urinary tract infection in male Exam - Vital Signs Vital Signs: Last Vital Signs Temp 98.2 F 01/11/19 13:40 Pulse 73 01/11/19 13:40 Resp 18 01/11/19 13:40 BP 160/76 H 01/11/19 13:40 Pulse Ox 98 01/11/19 13:40 - Patient Data Lab Results Last 24 hrs: Laboratory Results - last 24 hr 01/11/19 01/11/19 01/11/19 Range/Units 10:55 10:55 10:55 WBC 10.1 (4.5-12.0) X10-3/uL RBC 4.93 (4.30-5.75) x10(6)uL Hgb 14.2 (13.5-17.8) g/dL Hct 42.0 (30.0-51.3) % MCV 85.1 (80-96) fL MCH 28.9 (27.7-33.6) pg MCHC 34.0 (32.2-35.4) g/dL RDW 13.4 (11.5-15.5) % Plt Count 135 (125-369) X10(3)uL MPV 8.6 (7.4-10.4) fL Neut % (Auto) 71.9 (46-82) % Lymph % (Auto) 15.1 (13-37) % [place] % (Auto) 10.7 (4-12) % Eos % (Auto) 2 (1.0-5.0) % Baso % (Auto) 1 (0-2) % Neut # (Auto) 7.2 (1.6-8.3) # Lymph # (Auto) 1.5 (0.6-5.0) # [place] # (Auto) 1.1 (0.0-1.3) # Eos # (Auto) 0.2 (0.0-0.8) # Baso # (Auto) 0.1 (0.0-0.2) # PT 9.4 (8.7-11.1) INR 0.97 (0.89-1.13) Sodium 140 (135-145) mmol/L Potassium 4.1 (3.5-5.3) mmol/L Chloride 105 (100-110) mmol/L Carbon Dioxide 25 (21-32) mmol/L BUN 18 (7-18) mg/dL Creatinine 1.2 (0.70-1.30) mg/dL Est Cr Clr Drug Dosing 49.00 mL/min Estimated GFR (MDRD) 58 L (>60) BUN/Creatinine Ratio 15.0 (9-20) Glucose 90 (80-116) mg/dL Lactic Acid (0.4-2.2) mmol/L Calcium 8.8 (8.6-10.2) mg/dL Total Bilirubin 0.7 (0.1-1.3) mg/dL AST 13 D (5-25) IU/L ALT 22 (12-36) U/L Alkaline Phosphatase 71 (56-112) IU/L Troponin I (<0.017-0.056) ng/mL Total Protein 6.2 (6.0-8.0) g/dL Albumin 3.1 L (3.2-4.6) g/dL Globulin 3.1 g/dL Albumin/Globulin Ratio 1.0 Urine Color (YELLOW) Urine Appearance (CLEAR) Urine pH (5.0-6.5) Ur Specific [place] (1.010-1.025) Urine Protein (NEGATIVE) mg/dL Urine Glucose (UA) (NORMAL) mg/dL Urine Ketones (NEGATIVE) mg/dL Urine Occult Blood (NEGATIVE) Urine Nitrite (NEGATIVE) Urine Bilirubin (NEGATIVE) Urine Urobilinogen (NEGATIVE) mg/dL Ur Leukocyte Esterase (NEGATIVE) Urine RBC (0-5) Urine WBC (0-5) Urine Bacteria (NS) Urine Yeast (NS) 01/11/19 01/11/19 01/11/19 Range/Units 10:55 10:55 11:55 WBC (4.5-12.0) X10-3/uL RBC (4.30-5.75) x10(6)uL Hgb (13.5-17.8) g/dL Hct (30.0-51.3) % MCV (80-96) fL MCH (27.7-33.6) pg MCHC (32.2-35.4) g/dL RDW (11.5-15.5) % Plt Count (125-369) X10(3)uL MPV (7.4-10.4) fL Neut % (Auto) (46-82) % Lymph % (Auto) (13-37) % [place] % (Auto) (4-12) % Eos % (Auto) (1.0-5.0) % Baso % (Auto) (0-2) % Neut # (Auto) (1.6-8.3) # Lymph # (Auto) (0.6-5.0) # [place] # (Auto) (0.0-1.3) # Eos # (Auto) (0.0-0.8) # Baso # (Auto) (0.0-0.2) # PT (8.7-11.1) INR (0.89-1.13) Sodium (135-145) mmol/L Potassium (3.5-5.3) mmol/L Chloride (100-110) mmol/L Carbon Dioxide (21-32) mmol/L BUN (7-18) mg/dL Creatinine (0.70-1.30) mg/dL Est Cr Clr Drug Dosing mL/min Estimated GFR (MDRD) (>60) BUN/Creatinine Ratio (9-20) Glucose (80-116) mg/dL Lactic Acid 1.0 (0.4-2.2) mmol/L Calcium (8.6-10.2) mg/dL Total Bilirubin (0.1-1.3) mg/dL AST (5-25) IU/L ALT (12-36) U/L Alkaline Phosphatase (56-112) IU/L Troponin I 0.024 (<0.017-0.056) ng/mL Total Protein (6.0-8.0) g/dL Albumin (3.2-4.6) g/dL Globulin g/dL Albumin/Globulin Ratio Urine Color Yellow (YELLOW) Urine Appearance Cloudy (CLEAR) Urine pH 5.0 (5.0-6.5) Ur Specific [place] 1.015 (1.010-1.025) Urine Protein 100 H (NEGATIVE) mg/dL Urine Glucose (UA) Normal (NORMAL) mg/dL Urine Ketones Negative (NEGATIVE) mg/dL Urine Occult Blood Large H (NEGATIVE) Urine Nitrite Negative (NEGATIVE) Urine Bilirubin Negative (NEGATIVE) Urine Urobilinogen Normal (NEGATIVE) mg/dL Ur Leukocyte Esterase Large H (NEGATIVE) Urine RBC Packed H (0-5) Urine WBC Packed H (0-5) Urine Bacteria Many H (NS) Urine Yeast Moderate H (NS) Result Diagrams: 01/11/19 10:55 01/11/19 10:55 - Problem List (1) Palliative care status SNOMED Code(s): 371896707 ICD Code: Z51.5 - ENCOUNTER FOR PALLIATIVE CARE Status: Acute Current Visit: Yes (2) Generalized weakness SNOMED Code(s): 35004747 ICD Code: R53.1 - WEAKNESS Status: Acute Current Visit: Yes (3) UTI (urinary tract infection) SNOMED Code(s): 43944698 ICD Code: N39.0 - URINARY TRACT INFECTION, SITE NOT SPECIFIED Status: Acute Current Visit: Yes Qualifiers: Urinary tract infection type: acute cystitis Hematuria presence: with hematuria Qualified Code(s): N30.01 - Acute cystitis with hematuria Orders Last 24hrs: Active Orders 24 hr Category Date Time Status Admission Status [Patient Status] [ADT] Routine ADT 01/11/19 13:45 Active Ambulate [RC] PER UNIT ROUTINE Care 01/11/19 14:03 Active Martin Catheter Insertion [Insert Urinary Catheter] [OM. Care 01/11/19 11:45 Ordered PC] Q24H Height and Weight [RC] Care 01/11/19 14:01 Active Intake and Output [RC] 06,14,22 Care 01/11/19 14:02 Active Notify Provider Consults [RC] ASDIRECTED Care 01/11/19 14:04 Active Notify Provider Vital Signs [RC] ASDIRECTED Care 01/11/19 14:02 Active Oxygen Therapy [RC] PRN Care 01/11/19 14:01 Active Up With Assistance [RC] ASDIRECTED Care 01/11/19 14:01 Active VTE/DVT Education [RC] Per Unit Routine Care 01/11/19 14:01 Active Vital Signs [RC] QSHIFT Care 01/11/19 14:01 Active Consult to Physician [CONS] Routine Cons 01/11/19 14:01 Ordered 2 Gram Sodium Diet [DIET] Diet 01/11/19 Dinner Active BASIC METABOLIC PANEL,BMP [CHEM] AM Lab 01/12/19 05:11 Ordered CBC WITH AUTO DIFF [HEME] AM Lab 01/12/19 05:11 Ordered CULTURE BLOOD [BC] Urgent Lab 01/11/19 10:55 Received CULTURE BLOOD [BC] Urgent Lab 01/11/19 11:00 Received CULTURE URINE [RM] Stat Lab 01/11/19 11:55 Received Ciprofloxacin [Ciprofloxacin HCl] Med 01/11/19 21:00 Active 500 mg PO BID Oxybutynin [Oxybutynin ER] Med 01/11/19 14:15 Active 5 mg PO DAILY Sodium Chloride 0.9% [Normal Saline] 1,000 ml Med 01/11/19 14:15 Active IV ASDIRECTED Sodium Chloride 0.9% [Saline Flush] Med 01/11/19 10:26 Active 10 ml FLUSH ASDIRECTED PRN Tamsulosin [Flomax] Med 01/11/19 14:15 Active 0.4 mg PO DAILY Zolpidem [Ambien] Med 01/11/19 14:08 Active 10 mg PO BEDTIME PRN Blood Culture x2 Reflex Set [OM.PC] Urgent Oth 01/11/19 10:26 Ordered Saline Lock Insert [OM.PC] Routine Oth 01/11/19 10:26 Ordered Resuscitation Status Routine Resus Stat 01/11/19 14:01 Ordered Medication Orders Ciprofloxacin (Ciprofloxacin Hcl) 500 mg PO BID ANJANA Sodium Chloride (Normal Saline) 1,000 mls @ 100 mls/hr IV ASDIRECTED ANJANA Oxybutynin Chloride (Oxybutynin Er) 5 mg PO DAILY ANJANA Last Admin: 01/11/19 15:00 Dose: 5 mg Sodium Chloride (Saline Flush) 10 ml FLUSH ASDIRECTED PRN PRN Reason: Keep Vein Open Last Admin: 01/11/19 12:49 Dose: 10 ml Admin: 01/11/19 10:55 Dose: 10 ml Tamsulosin HCl (Flomax) 0.4 mg PO DAILY [facility] Last Admin: 01/11/19 15:00 Dose: 0.4 mg Zolpidem Tartrate (Ambien) 10 mg PO BEDTIME PRN PRN Reason: Insomnia Assessment/Plan Comment:: I attest I saw this patient with the resident and concur with the plan and H&P.
[2019-01-11] MEDS ORDERED: Hydrochlorothiazide/Lisinopril 12.5-10 MG Tab PO SCH (21:00)
[2019-01-11] MEDS: Ciprofloxacin 500 MG Tab PO SCH (21:13)
--- NOTE | 2019-01-11 21:43 | CONS ---
DATE OF CONSULTATION: 01/11/2019 HISTORY OF PRESENT ILLNESS: This 83-year-old male was admitted through the emergency room today where he presented with complaints of hematuria and weakness. This patient underwent a procedure for removing right ureteral stones 2 weeks ago. He has a right ureteral stent in place. He states that he has felt weak since the procedure was done, but has noticed the weakness continued and also noted some increased blood with his urine over the last few days. The patient denies any change in abdominal pain. He also denies any change in appetite or any nausea or vomiting. He has been having bowel movements with 2 stools today. The patient was evaluated with a CT scan of the abdomen. This did show changes in the area of the right kidney, ureter, and bladder, but was also interpreted as showing a slight change in the appearance of the patient's appendix compared to a CT scan of about 6 weeks ago. The appendix on today's exam was noted to be slightly enlarged compared to the exam of a few weeks ago. The appendix measured 8.7 mm in size today and was 8 mm previously. On today's examination, there is no periappendiceal inflammation or other abnormalities in the region of the appendix. Additional diagnostic studies today show serum white blood cell count of 10,100, hemoglobin of 14.2. Chemistry studies and liver function studies are normal. Creatinine is 1.2. Urinalysis did show a large amount of red blood cells and white blood cells in the urine. PAST MEDICAL HISTORY: Does include diagnoses of hypertension. He also carries a diagnoses of prostate cancer with prior radiation. PAST SURGICAL HISTORY: Previous surgeries include cholecystectomy and colonoscopy along with multiple back surgeries. MEDICATIONS: His current home medications include: 1. Lisinopril. 2. Ambien. REVIEW OF SYSTEMS: On system review, again the patient denies any recent change in appetite. He does describe chronic symptoms of periodic vomiting, but there has been no recent change in this and he has had no difficulty with eating or nausea associated with his symptoms of the last few days. He does have chronic constipation, but as noted has had bowel movements today. PHYSICAL EXAMINATION: VITAL SIGNS: Temperature 98.2, pulse 73, blood pressure is 160/76, weight is 217 pounds. GENERAL: The patient is an alert adult male, currently in no acute distress. HEENT: Head is normocephalic. No scleral icterus. No cervical masses. HEART: Regular. No murmurs heard. LUNGS: Clear. The patient has mild right CVA tenderness, no left CVA tenderness. ABDOMEN: Currently soft. I do not feel any abdominal masses. The patient does have some mild intermittent tenderness to direct palpation in the right lower quadrant. There is no guarding associated with this. The tenderness is somewhat variable and he really does not indicate that this is more uncomfortable here than in the left lower quadrant, but no other areas of tenderness are identified on exam. There is no palpable mass. No hepatic or splenic enlargement. No inguinal masses or tenderness are noted. EXTREMITIES: Show no calf induration or tenderness. IMPRESSION: 1. Hematuria and urinary tract infection post procedure for treatment of right ureteral calculi. 2. Slight appendiceal dilation. RECOMMENDATIONS: With the patient's current minimal symptoms and physical findings related to the appendix, I have recommended simple observation. The patient is going to be treated with antibiotics for his urinary tract infection and if there is any very early appendiceal inflammation, this will likely control this as well. Would agree with current management for antibiotics and careful observation. We will continue to follow the patient, but if symptoms regarding his appendix do not worsen, anticipate conservative observation of this CT scan finding. /[id number] DOUG/ROBERT
[2019-01-11] MEDS ORDERED: Acetaminophen 325 MG Tab PO PRN (21:57)
--- NOTE | 2019-01-12 06:42 | PCM.PN ---
- General Info Date of Service: 01/12/19 - Review of Systems Gastrointestinal: Denies: Nausea Genitourinary: Reports: Other (voided multiple times last night) - Patient Data Vitals - Most Recent: Last Vital Signs Temp 98.8 F 01/12/19 00:00 Pulse 73 01/12/19 00:00 Resp 17 01/12/19 00:00 BP 152/67 H 01/12/19 00:00 Pulse Ox 97 01/12/19 00:00 Weight - Most Recent: 219 lb 6.4 oz I&O - Last 24 Hours: Intake & Output 01/11/19 01/11/19 01/12/19 14:59 22:59 06:59 Intake Total 600 350 Output Total 625 1200 Balance -25 -850 Lab Results Last 24 Hours: Laboratory Results - last 24 hr 01/11/19 01/11/19 01/11/19 Range/Units 10:55 10:55 10:55 WBC 10.1 (4.5-12.0) X10-3/uL RBC 4.93 (4.30-5.75) x10(6)uL Hgb 14.2 (13.5-17.8) g/dL Hct 42.0 (30.0-51.3) % MCV 85.1 (80-96) fL MCH 28.9 (27.7-33.6) pg MCHC 34.0 (32.2-35.4) g/dL RDW 13.4 (11.5-15.5) % Plt Count 135 (125-369) X10(3)uL MPV 8.6 (7.4-10.4) fL Neut % (Auto) 71.9 (46-82) % Lymph % (Auto) 15.1 (13-37) % [place] % (Auto) 10.7 (4-12) % Eos % (Auto) 2 (1.0-5.0) % Baso % (Auto) 1 (0-2) % Neut # (Auto) 7.2 (1.6-8.3) # Lymph # (Auto) 1.5 (0.6-5.0) # [place] # (Auto) 1.1 (0.0-1.3) # Eos # (Auto) 0.2 (0.0-0.8) # Baso # (Auto) 0.1 (0.0-0.2) # PT 9.4 (8.7-11.1) INR 0.97 (0.89-1.13) Sodium 140 (135-145) mmol/L Potassium 4.1 (3.5-5.3) mmol/L Chloride 105 (100-110) mmol/L Carbon Dioxide 25 (21-32) mmol/L BUN 18 (7-18) mg/dL Creatinine 1.2 (0.70-1.30) mg/dL Est Cr Clr Drug Dosing 49.00 mL/min Estimated GFR (MDRD) 58 L (>60) BUN/Creatinine Ratio 15.0 (9-20) Glucose 90 (80-116) mg/dL Lactic Acid (0.4-2.2) mmol/L Calcium 8.8 (8.6-10.2) mg/dL Total Bilirubin 0.7 (0.1-1.3) mg/dL AST 13 D (5-25) IU/L ALT 22 (12-36) U/L Alkaline Phosphatase 71 (56-112) IU/L Troponin I (<0.017-0.056) ng/mL Total Protein 6.2 (6.0-8.0) g/dL Albumin 3.1 L (3.2-4.6) g/dL Globulin 3.1 g/dL Albumin/Globulin Ratio 1.0 Urine Color (YELLOW) Urine Appearance (CLEAR) Urine pH (5.0-6.5) Ur Specific [place] (1.010-1.025) Urine Protein (NEGATIVE) mg/dL Urine Glucose (UA) (NORMAL) mg/dL Urine Ketones (NEGATIVE) mg/dL Urine Occult Blood (NEGATIVE) Urine Nitrite (NEGATIVE) Urine Bilirubin (NEGATIVE) Urine Urobilinogen (NEGATIVE) mg/dL Ur Leukocyte Esterase (NEGATIVE) Urine RBC (0-5) Urine WBC (0-5) Urine Bacteria (NS) Urine Yeast (NS) 01/11/19 01/11/19 01/11/19 Range/Units 10:55 10:55 11:55 WBC (4.5-12.0) X10-3/uL RBC (4.30-5.75) x10(6)uL Hgb (13.5-17.8) g/dL Hct (30.0-51.3) % MCV (80-96) fL MCH (27.7-33.6) pg MCHC (32.2-35.4) g/dL RDW (11.5-15.5) % Plt Count (125-369) X10(3)uL MPV (7.4-10.4) fL Neut % (Auto) (46-82) % Lymph % (Auto) (13-37) % [place] % (Auto) (4-12) % Eos % (Auto) (1.0-5.0) % Baso % (Auto) (0-2) % Neut # (Auto) (1.6-8.3) # Lymph # (Auto) (0.6-5.0) # [place] # (Auto) (0.0-1.3) # Eos # (Auto) (0.0-0.8) # Baso # (Auto) (0.0-0.2) # PT (8.7-11.1) INR (0.89-1.13) Sodium (135-145) mmol/L Potassium (3.5-5.3) mmol/L Chloride (100-110) mmol/L Carbon Dioxide (21-32) mmol/L BUN (7-18) mg/dL Creatinine (0.70-1.30) mg/dL Est Cr Clr Drug Dosing mL/min Estimated GFR (MDRD) (>60) BUN/Creatinine Ratio (9-20) Glucose (80-116) mg/dL Lactic Acid 1.0 (0.4-2.2) mmol/L Calcium (8.6-10.2) mg/dL Total Bilirubin (0.1-1.3) mg/dL AST (5-25) IU/L ALT (12-36) U/L Alkaline Phosphatase (56-112) IU/L Troponin I 0.024 (<0.017-0.056) ng/mL Total Protein (6.0-8.0) g/dL Albumin (3.2-4.6) g/dL Globulin g/dL Albumin/Globulin Ratio Urine Color Yellow (YELLOW) Urine Appearance Cloudy (CLEAR) Urine pH 5.0 (5.0-6.5) Ur Specific [place] 1.015 (1.010-1.025) Urine Protein 100 H (NEGATIVE) mg/dL Urine Glucose (UA) Normal (NORMAL) mg/dL Urine Ketones Negative (NEGATIVE) mg/dL Urine Occult Blood Large H (NEGATIVE) Urine Nitrite Negative (NEGATIVE) Urine Bilirubin Negative (NEGATIVE) Urine Urobilinogen Normal (NEGATIVE) mg/dL Ur Leukocyte Esterase Large H (NEGATIVE) Urine RBC Packed H (0-5) Urine WBC Packed H (0-5) Urine Bacteria Many H (NS) Urine Yeast Moderate H (NS) Med Orders - Current: Current Medications Acetaminophen (Tylenol) 650 mg PO Q4H PRN PRN Reason: Pain (mild 1-3) Ciprofloxacin (Ciprofloxacin Hcl) 500 mg PO BID [facility] Last Admin: 01/11/19 21:13 Dose: 500 mg Sodium Chloride (Normal Saline) 1,000 mls @ 100 mls/hr IV ASDIRECTED [facility] Oxybutynin Chloride (Oxybutynin Er) 5 mg PO DAILY [facility] Last Admin: 01/11/19 15:00 Dose: 5 mg Sodium Chloride (Saline Flush) 10 ml FLUSH ASDIRECTED PRN PRN Reason: Keep Vein Open Last Admin: 01/11/19 12:49 Dose: 10 ml Tamsulosin HCl (Flomax) 0.4 mg PO DAILY [facility] Last Admin: 01/11/19 15:00 Dose: 0.4 mg Zolpidem Tartrate (Ambien) 10 mg PO BEDTIME PRN PRN Reason: Insomnia Last Admin: 01/11/19 21:51 Dose: 10 mg Discontinued Medications Ceftriaxone Sodium (Rocephin) 2 gm IVPUSH ONETIME ONE Stop: 01/11/19 12:38 Last Admin: 01/11/19 12:44 Dose: 2 gm Lisinopril/HCTZ (Lisinopril/Hctz 10-12.5 Mg) tab PO BEDTIME [facility] Sodium Chloride (Normal Saline) 500 mls @ 500 mls/hr IV .BOLUS ONE Stop: 01/11/19 11:26 Last Admin: 01/11/19 10:57 Dose: 500 mls/hr - Exam General: Alert, Oriented GI/Abdominal Exam: Soft, Other (only minimal tenderness RLQ, no guarding) - Problem List Review Problem List Initiated/Reviewed/Updated: Yes - Assessment Assessment:: Improving abdominal pain - doubt appendicitis - Plan Plan:: agree with current care patient can progress on diet as tolerated from surgical standpoint
--- NOTE | 2019-01-12 09:15 | PCM.PN ---
- General Info Date of Service: 01/12/19 Admission Dx/Problem (Free Text): Patient denies hematuria. He says he went to the bathroom and had a urination 4 times lasting now are clear. He is weakness is improved and he wants to go home. He denies abdominal pain, fevers, chills, nausea, vomiting or CVA tenderness - Patient Data Vitals - Most Recent: Last Vital Signs Temp 98.8 F 01/12/19 00:00 Pulse 73 01/12/19 00:00 Resp 17 01/12/19 00:00 BP 152/67 H 01/12/19 00:00 Pulse Ox 97 01/12/19 00:00 Weight - Most Recent: 219 lb 6.4 oz I&O - Last 24 Hours: Intake & Output 01/11/19 01/12/19 01/12/19 22:59 06:59 14:59 Intake Total 600 350 Output Total 625 1200 Balance -25 -850 Lab Results Last 24 Hours: Laboratory Results - last 24 hr 01/11/19 01/11/19 01/11/19 Range/Units 10:55 10:55 10:55 WBC 10.1 (4.5-12.0) X10-3/uL RBC 4.93 (4.30-5.75) x10(6)uL Hgb 14.2 (13.5-17.8) g/dL Hct 42.0 (30.0-51.3) % MCV 85.1 (80-96) fL MCH 28.9 (27.7-33.6) pg MCHC 34.0 (32.2-35.4) g/dL RDW 13.4 (11.5-15.5) % Plt Count 135 (125-369) X10(3)uL MPV 8.6 (7.4-10.4) fL Neut % (Auto) 71.9 (46-82) % Lymph % (Auto) 15.1 (13-37) % [place] % (Auto) 10.7 (4-12) % Eos % (Auto) 2 (1.0-5.0) % Baso % (Auto) 1 (0-2) % Neut # (Auto) 7.2 (1.6-8.3) # Lymph # (Auto) 1.5 (0.6-5.0) # [place] # (Auto) 1.1 (0.0-1.3) # Eos # (Auto) 0.2 (0.0-0.8) # Baso # (Auto) 0.1 (0.0-0.2) # PT 9.4 (8.7-11.1) INR 0.97 (0.89-1.13) Sodium 140 (135-145) mmol/L Potassium 4.1 (3.5-5.3) mmol/L Chloride 105 (100-110) mmol/L Carbon Dioxide 25 (21-32) mmol/L BUN 18 (7-18) mg/dL Creatinine 1.2 (0.70-1.30) mg/dL Est Cr Clr Drug Dosing 49.00 mL/min Estimated GFR (MDRD) 58 L (>60) BUN/Creatinine Ratio 15.0 (9-20) Glucose 90 (80-116) mg/dL Lactic Acid (0.4-2.2) mmol/L Calcium 8.8 (8.6-10.2) mg/dL Total Bilirubin 0.7 (0.1-1.3) mg/dL AST 13 D (5-25) IU/L ALT 22 (12-36) U/L Alkaline Phosphatase 71 (56-112) IU/L Troponin I (<0.017-0.056) ng/mL Total Protein 6.2 (6.0-8.0) g/dL Albumin 3.1 L (3.2-4.6) g/dL Globulin 3.1 g/dL Albumin/Globulin Ratio 1.0 Urine Color (YELLOW) Urine Appearance (CLEAR) Urine pH (5.0-6.5) Ur Specific [place] (1.010-1.025) Urine Protein (NEGATIVE) mg/dL Urine Glucose (UA) (NORMAL) mg/dL Urine Ketones (NEGATIVE) mg/dL Urine Occult Blood (NEGATIVE) Urine Nitrite (NEGATIVE) Urine Bilirubin (NEGATIVE) Urine Urobilinogen (NEGATIVE) mg/dL Ur Leukocyte Esterase (NEGATIVE) Urine RBC (0-5) Urine WBC (0-5) Urine Bacteria (NS) Urine Yeast (NS) 01/11/19 01/11/19 01/11/19 Range/Units 10:55 10:55 11:55 WBC (4.5-12.0) X10-3/uL RBC (4.30-5.75) x10(6)uL Hgb (13.5-17.8) g/dL Hct (30.0-51.3) % MCV (80-96) fL MCH (27.7-33.6) pg MCHC (32.2-35.4) g/dL RDW (11.5-15.5) % Plt Count (125-369) X10(3)uL MPV (7.4-10.4) fL Neut % (Auto) (46-82) % Lymph % (Auto) (13-37) % [place] % (Auto) (4-12) % Eos % (Auto) (1.0-5.0) % Baso % (Auto) (0-2) % Neut # (Auto) (1.6-8.3) # Lymph # (Auto) (0.6-5.0) # [place] # (Auto) (0.0-1.3) # Eos # (Auto) (0.0-0.8) # Baso # (Auto) (0.0-0.2) # PT (8.7-11.1) INR (0.89-1.13) Sodium (135-145) mmol/L Potassium (3.5-5.3) mmol/L Chloride (100-110) mmol/L Carbon Dioxide (21-32) mmol/L BUN (7-18) mg/dL Creatinine (0.70-1.30) mg/dL Est Cr Clr Drug Dosing mL/min Estimated GFR (MDRD) (>60) BUN/Creatinine Ratio (9-20) Glucose (80-116) mg/dL Lactic Acid 1.0 (0.4-2.2) mmol/L Calcium (8.6-10.2) mg/dL Total Bilirubin (0.1-1.3) mg/dL AST (5-25) IU/L ALT (12-36) U/L Alkaline Phosphatase (56-112) IU/L Troponin I 0.024 (<0.017-0.056) ng/mL Total Protein (6.0-8.0) g/dL Albumin (3.2-4.6) g/dL Globulin g/dL Albumin/Globulin Ratio Urine Color Yellow (YELLOW) Urine Appearance Cloudy (CLEAR) Urine pH 5.0 (5.0-6.5) Ur Specific [place] 1.015 (1.010-1.025) Urine Protein 100 H (NEGATIVE) mg/dL Urine Glucose (UA) Normal (NORMAL) mg/dL Urine Ketones Negative (NEGATIVE) mg/dL Urine Occult Blood Large H (NEGATIVE) Urine Nitrite Negative (NEGATIVE) Urine Bilirubin Negative (NEGATIVE) Urine Urobilinogen Normal (NEGATIVE) mg/dL Ur Leukocyte Esterase Large H (NEGATIVE) Urine RBC Packed H (0-5) Urine WBC Packed H (0-5) Urine Bacteria Many H (NS) Urine Yeast Moderate H (NS) 01/12/19 01/12/19 Range/Units 06:18 06:18 WBC 8.9 (4.5-12.0) X10-3/uL RBC 4.78 (4.30-5.75) x10(6)uL Hgb 13.6 (13.5-17.8) g/dL Hct 40.7 (30.0-51.3) % MCV 85.2 (80-96) fL MCH 28.4 (27.7-33.6) pg MCHC 33.4 (32.2-35.4) g/dL RDW 13.7 (11.5-15.5) % Plt Count 138 (125-369) X10(3)uL MPV 8.5 (7.4-10.4) fL Neut % (Auto) 70.0 (46-82) % Lymph % (Auto) 19.8 (13-37) % [place] % (Auto) 8.0 (4-12) % Eos % (Auto) 2 (1.0-5.0) % Baso % (Auto) 0 (0-2) % Neut # (Auto) 6.2 (1.6-8.3) # Lymph # (Auto) 1.8 (0.6-5.0) # [place] # (Auto) 0.7 (0.0-1.3) # Eos # (Auto) 0.2 (0.0-0.8) # Baso # (Auto) 0.0 (0.0-0.2) # PT (8.7-11.1) INR (0.89-1.13) Sodium 140 (135-145) mmol/L Potassium 4.2 (3.5-5.3) mmol/L Chloride 105 (100-110) mmol/L Carbon Dioxide 24 (21-32) mmol/L BUN 14 (7-18) mg/dL Creatinine 1.1 (0.70-1.30) mg/dL Est Cr Clr Drug Dosing 53.46 mL/min Estimated GFR (MDRD) > 60 (>60) BUN/Creatinine Ratio 12.7 (9-20) Glucose 98 (80-116) mg/dL Lactic Acid (0.4-2.2) mmol/L Calcium 8.6 (8.6-10.2) mg/dL Total Bilirubin (0.1-1.3) mg/dL AST (5-25) IU/L ALT (12-36) U/L Alkaline Phosphatase (56-112) IU/L Troponin I (<0.017-0.056) ng/mL Total Protein (6.0-8.0) g/dL Albumin (3.2-4.6) g/dL Globulin g/dL Albumin/Globulin Ratio Urine Color (YELLOW) Urine Appearance (CLEAR) Urine pH (5.0-6.5) Ur Specific [place] (1.010-1.025) Urine Protein (NEGATIVE) mg/dL Urine Glucose (UA) (NORMAL) mg/dL Urine Ketones (NEGATIVE) mg/dL Urine Occult Blood (NEGATIVE) Urine Nitrite (NEGATIVE) Urine Bilirubin (NEGATIVE) Urine Urobilinogen (NEGATIVE) mg/dL Ur Leukocyte Esterase (NEGATIVE) Urine RBC (0-5) Urine WBC (0-5) Urine Bacteria (NS) Urine Yeast (NS) Edil Results Last 24 Hours: Microbiology 01/11/19 11:55 Urine Culture - Preliminary Urine, Catheterized Yeast Isolated Med Orders - Current: Current Medications Acetaminophen (Tylenol) 650 mg PO Q4H PRN PRN Reason: Pain (mild 1-3) Ciprofloxacin (Ciprofloxacin Hcl) 500 mg PO BID [facility] Last Admin: 01/11/19 21:13 Dose: 500 mg Sodium Chloride (Normal Saline) 1,000 mls @ 100 mls/hr IV ASDIRECTED [facility] Oxybutynin Chloride (Oxybutynin Er) 5 mg PO DAILY [facility] Last Admin: 01/11/19 15:00 Dose: 5 mg Sodium Chloride (Saline Flush) 10 ml FLUSH ASDIRECTED PRN PRN Reason: Keep Vein Open Last Admin: 01/11/19 12:49 Dose: 10 ml Tamsulosin HCl (Flomax) 0.4 mg PO DAILY [facility] Last Admin: 01/11/19 15:00 Dose: 0.4 mg Zolpidem Tartrate (Ambien) 10 mg PO BEDTIME PRN PRN Reason: Insomnia Last Admin: 01/11/19 21:51 Dose: 10 mg Discontinued Medications Ceftriaxone Sodium (Rocephin) 2 gm IVPUSH ONETIME ONE Stop: 01/11/19 12:38 Last Admin: 01/11/19 12:44 Dose: 2 gm Lisinopril/HCTZ (Lisinopril/Hctz 10-12.5 Mg) tab PO BEDTIME [facility] Sodium Chloride (Normal Saline) 500 mls @ 500 mls/hr IV .BOLUS ONE Stop: 01/11/19 11:26 Last Admin: 01/11/19 10:57 Dose: 500 mls/hr - Exam General: Alert, Oriented Back Exam: Other (No CVA tenderness) - Problem List & Annotations (1) Palliative care status SNOMED Code(s): 927316411 Code(s): Z51.5 - ENCOUNTER FOR PALLIATIVE CARE Status: Acute Current Visit: Yes (2) Generalized weakness SNOMED Code(s): 05712331 Code(s): R53.1 - WEAKNESS Status: Acute Current Visit: Yes (3) UTI (urinary tract infection) SNOMED Code(s): 85503022 Code(s): N39.0 - URINARY TRACT INFECTION, SITE NOT SPECIFIED Status: Acute Current Visit: Yes Qualifiers: Urinary tract infection type: acute cystitis Hematuria presence: with hematuria Qualified Code(s): N30.01 - Acute cystitis with hematuria - Problem List Review Problem List Initiated/Reviewed/Updated: Yes - My Orders Last 24 Hours: My Active Orders 01/11/19 21:57 Acetaminophen [Tylenol] 650 mg PO Q4H PRN - Plan Plan:: 1. Discussed how he is doing with his and she is comfortable taking her home. So sent home on oxybutynin and Cipro. Follow-up with Dr. Walker his regular scheduled appointment and see Dr. Diallo in 1 week for a UA.
--- NOTE | 2019-01-12 09:20 | PCM.DCSUM1 ---
Discharge Summary - Hospital Course Free Text/Narrative:: Hospital course-patient had CT of the abdomen that showed appendix that was larger than it was previously and CT. Dr. Brown evaluated felt that was not appendicitis. He was admitted and put on Cipro, Flomax and oxybutynin. The ER physician did discuss his care with his urologist. I was his recommendation. Overnight the patient did well and his urine cleared up and his weakness improved. He wanted to go home. I did talk to his and offered home health and they deferred. He will go home on his home medications plus Cipro, [place] oxybutynin. Brief History: 83 year old male admitted to the hospital for UTI. He had laser treatment of a kidney stone 12/30/18, and reported hematuria since that time. This morning he decided it had been going on along enough so he should come to the ED for evaluation. At that time it was noted he also had a UTI. The patient is full code. He lives at home with his . They are able to do their own ADLs. 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 Diagnosis: Stroke: No - Discharge Data Discharge Date: 01/12/19 Discharge Disposition: Home, Self-Care 01 Condition: Good - Discharge Diagnosis/Problem(s) (1) Palliative care status SNOMED Code(s): 551255650 ICD Code: Z51.5 - ENCOUNTER FOR PALLIATIVE CARE Status: Acute Current Visit: Yes (2) Generalized weakness SNOMED Code(s): 96464372 ICD Code: R53.1 - WEAKNESS Status: Acute Current Visit: Yes (3) UTI (urinary tract infection) SNOMED Code(s): 14396400 ICD Code: N39.0 - URINARY TRACT INFECTION, SITE NOT SPECIFIED Status: Acute Current Visit: Yes Qualifiers: Urinary tract infection type: acute cystitis Hematuria presence: with hematuria Qualified Code(s): N30.01 - Acute cystitis with hematuria - Patient Summary/Data Consults: Consultations 01/11/19 14:01 Consult to Physician [CONS] Routine Consulting Provider: Parish Garcia Call Completed to Consulting Physician: Yes - Patient Instructions Diet: Heart Healthy Diet Activity: As Tolerated Driving: May Drive Today Showering/Bathing: May Shower Other/Special Instructions: 1. Recheck with Dr. Diallo in 1 week with a UA. 2. Recheck with urology for urology appointment. - Discharge Plan *PRESCRIPTION DRUG MONITORING PROGRAM REVIEWED*: No *COPY OF PRESCRIPTION DRUG MONITORING REPORT IN PATIENT SHREYAS: Not Applicable Prescriptions/Med Rec: Ciprofloxacin [Ciprofloxacin HCl] 500 mg PO BID #10 tablet Oxybutynin [Oxybutynin ER] 5 mg PO DAILY #30 tab.er Tamsulosin [Flomax] 0.4 mg PO DAILY #30 cap.er Home Medications: Home Meds Zolpidem [Ambien] 10 mg PO BEDTIME 11/22/14 [History] Lisinopril/Hydrochlorothiazide [Lisinopril-Hctz 10-12.5 mg Tab] 0.5 tab PO BEDTIME PRN 01/11/19 [History] Ciprofloxacin [Ciprofloxacin HCl] 500 mg PO BID #10 tablet 01/12/19 [Rx] Oxybutynin [Oxybutynin ER] 5 mg PO DAILY #30 tab.er 01/12/19 [Rx] Tamsulosin [Flomax] 0.4 mg PO DAILY #30 cap.er 01/12/19 [Rx] Patient Handouts: Urinary Tract Infection, Adult, [id number], Fall Prevention in Hospitals, Adult, Venous Thromboembolism Prevention Forms: ED Department Discharge Referrals: Bowen Diallo MD [Primary Care Provider] - - Discharge Summary/Plan Comment DC Time >30 min.: No - Patient Data Vitals - Most Recent: Last Vital Signs Temp 98.8 F 01/12/19 00:00 Pulse 73 01/12/19 00:00 Resp 17 01/12/19 00:00 BP 152/67 H 01/12/19 00:00 Pulse Ox 97 01/12/19 00:00 Weight - Most Recent: 219 lb 6.4 oz I&O - Last 24 hours: Intake & Output 01/11/19 01/12/19 01/12/19 22:59 06:59 14:59 Intake Total 600 350 Output Total 625 1200 Balance -25 -850 Lab Results - Last 24 hrs: Laboratory Results - last 24 hr 01/11/19 01/11/19 01/11/19 Range/Units 10:55 10:55 10:55 WBC 10.1 (4.5-12.0) X10-3/uL RBC 4.93 (4.30-5.75) x10(6)uL Hgb 14.2 (13.5-17.8) g/dL Hct 42.0 (30.0-51.3) % MCV 85.1 (80-96) fL MCH 28.9 (27.7-33.6) pg MCHC 34.0 (32.2-35.4) g/dL RDW 13.4 (11.5-15.5) % Plt Count 135 (125-369) X10(3)uL MPV 8.6 (7.4-10.4) fL Neut % (Auto) 71.9 (46-82) % Lymph % (Auto) 15.1 (13-37) % [place] % (Auto) 10.7 (4-12) % Eos % (Auto) 2 (1.0-5.0) % Baso % (Auto) 1 (0-2) % Neut # (Auto) 7.2 (1.6-8.3) # Lymph # (Auto) 1.5 (0.6-5.0) # [place] # (Auto) 1.1 (0.0-1.3) # Eos # (Auto) 0.2 (0.0-0.8) # Baso # (Auto) 0.1 (0.0-0.2) # PT 9.4 (8.7-11.1) INR 0.97 (0.89-1.13) Sodium 140 (135-145) mmol/L Potassium 4.1 (3.5-5.3) mmol/L Chloride 105 (100-110) mmol/L Carbon Dioxide 25 (21-32) mmol/L BUN 18 (7-18) mg/dL Creatinine 1.2 (0.70-1.30) mg/dL Est Cr Clr Drug Dosing 49.00 mL/min Estimated GFR (MDRD) 58 L (>60) BUN/Creatinine Ratio 15.0 (9-20) Glucose 90 (80-116) mg/dL Lactic Acid (0.4-2.2) mmol/L Calcium 8.8 (8.6-10.2) mg/dL Total Bilirubin 0.7 (0.1-1.3) mg/dL AST 13 D (5-25) IU/L ALT 22 (12-36) U/L Alkaline Phosphatase 71 (56-112) IU/L Troponin I (<0.017-0.056) ng/mL Total Protein 6.2 (6.0-8.0) g/dL Albumin 3.1 L (3.2-4.6) g/dL Globulin 3.1 g/dL Albumin/Globulin Ratio 1.0 Urine Color (YELLOW) Urine Appearance (CLEAR) Urine pH (5.0-6.5) Ur Specific [place] (1.010-1.025) Urine Protein (NEGATIVE) mg/dL Urine Glucose (UA) (NORMAL) mg/dL Urine Ketones (NEGATIVE) mg/dL Urine Occult Blood (NEGATIVE) Urine Nitrite (NEGATIVE) Urine Bilirubin (NEGATIVE) Urine Urobilinogen (NEGATIVE) mg/dL Ur Leukocyte Esterase (NEGATIVE) Urine RBC (0-5) Urine WBC (0-5) Urine Bacteria (NS) Urine Yeast (NS) 01/11/19 01/11/19 01/11/19 Range/Units 10:55 10:55 11:55 WBC (4.5-12.0) X10-3/uL RBC (4.30-5.75) x10(6)uL Hgb (13.5-17.8) g/dL Hct (30.0-51.3) % MCV (80-96) fL MCH (27.7-33.6) pg MCHC (32.2-35.4) g/dL RDW (11.5-15.5) % Plt Count (125-369) X10(3)uL MPV (7.4-10.4) fL Neut % (Auto) (46-82) % Lymph % (Auto) (13-37) % [place] % (Auto) (4-12) % Eos % (Auto) (1.0-5.0) % Baso % (Auto) (0-2) % Neut # (Auto) (1.6-8.3) # Lymph # (Auto) (0.6-5.0) # [place] # (Auto) (0.0-1.3) # Eos # (Auto) (0.0-0.8) # Baso # (Auto) (0.0-0.2) # PT (8.7-11.1) INR (0.89-1.13) Sodium (135-145) mmol/L Potassium (3.5-5.3) mmol/L Chloride (100-110) mmol/L Carbon Dioxide (21-32) mmol/L BUN (7-18) mg/dL Creatinine (0.70-1.30) mg/dL Est Cr Clr Drug Dosing mL/min Estimated GFR (MDRD) (>60) BUN/Creatinine Ratio (9-20) Glucose (80-116) mg/dL Lactic Acid 1.0 (0.4-2.2) mmol/L Calcium (8.6-10.2) mg/dL Total Bilirubin (0.1-1.3) mg/dL AST (5-25) IU/L ALT (12-36) U/L Alkaline Phosphatase (56-112) IU/L Troponin I 0.024 (<0.017-0.056) ng/mL Total Protein (6.0-8.0) g/dL Albumin (3.2-4.6) g/dL Globulin g/dL Albumin/Globulin Ratio Urine Color Yellow (YELLOW) Urine Appearance Cloudy (CLEAR) Urine pH 5.0 (5.0-6.5) Ur Specific [place] 1.015 (1.010-1.025) Urine Protein 100 H (NEGATIVE) mg/dL Urine Glucose (UA) Normal (NORMAL) mg/dL Urine Ketones Negative (NEGATIVE) mg/dL Urine Occult Blood Large H (NEGATIVE) Urine Nitrite Negative (NEGATIVE) Urine Bilirubin Negative (NEGATIVE) Urine Urobilinogen Normal (NEGATIVE) mg/dL Ur Leukocyte Esterase Large H (NEGATIVE) Urine RBC Packed H (0-5) Urine WBC Packed H (0-5) Urine Bacteria Many H (NS) Urine Yeast Moderate H (NS) 01/12/19 01/12/19 Range/Units 06:18 06:18 WBC 8.9 (4.5-12.0) X10-3/uL RBC 4.78 (4.30-5.75) x10(6)uL Hgb 13.6 (13.5-17.8) g/dL Hct 40.7 (30.0-51.3) % MCV 85.2 (80-96) fL MCH 28.4 (27.7-33.6) pg MCHC 33.4 (32.2-35.4) g/dL RDW 13.7 (11.5-15.5) % Plt Count 138 (125-369) X10(3)uL MPV 8.5 (7.4-10.4) fL Neut % (Auto) 70.0 (46-82) % Lymph % (Auto) 19.8 (13-37) % [place] % (Auto) 8.0 (4-12) % Eos % (Auto) 2 (1.0-5.0) % Baso % (Auto) 0 (0-2) % Neut # (Auto) 6.2 (1.6-8.3) # Lymph # (Auto) 1.8 (0.6-5.0) # [place] # (Auto) 0.7 (0.0-1.3) # Eos # (Auto) 0.2 (0.0-0.8) # Baso # (Auto) 0.0 (0.0-0.2) # PT (8.7-11.1) INR (0.89-1.13) Sodium 140 (135-145) mmol/L Potassium 4.2 (3.5-5.3) mmol/L Chloride 105 (100-110) mmol/L Carbon Dioxide 24 (21-32) mmol/L BUN 14 (7-18) mg/dL Creatinine 1.1 (0.70-1.30) mg/dL Est Cr Clr Drug Dosing 53.46 mL/min Estimated GFR (MDRD) > 60 (>60) BUN/Creatinine Ratio 12.7 (9-20) Glucose 98 (80-116) mg/dL Lactic Acid (0.4-2.2) mmol/L Calcium 8.6 (8.6-10.2) mg/dL Total Bilirubin (0.1-1.3) mg/dL AST (5-25) IU/L ALT (12-36) U/L Alkaline Phosphatase (56-112) IU/L Troponin I (<0.017-0.056) ng/mL Total Protein (6.0-8.0) g/dL Albumin (3.2-4.6) g/dL Globulin g/dL Albumin/Globulin Ratio Urine Color (YELLOW) Urine Appearance (CLEAR) Urine pH (5.0-6.5) Ur Specific [place] (1.010-1.025) Urine Protein (NEGATIVE) mg/dL Urine Glucose (UA) (NORMAL) mg/dL Urine Ketones (NEGATIVE) mg/dL Urine Occult Blood (NEGATIVE) Urine Nitrite (NEGATIVE) Urine Bilirubin (NEGATIVE) Urine Urobilinogen (NEGATIVE) mg/dL Ur Leukocyte Esterase (NEGATIVE) Urine RBC (0-5) Urine WBC (0-5) Urine Bacteria (NS) Urine Yeast (NS) RYLEE Results - Last 24 hrs: Microbiology 01/11/19 11:55 Urine Culture - Preliminary Urine, Catheterized Yeast Isolated Med Orders - Current: Current Medications Acetaminophen (Tylenol) 650 mg PO Q4H PRN PRN Reason: Pain (mild 1-3) Ciprofloxacin (Ciprofloxacin Hcl) 500 mg PO BID [facility] Last Admin: 01/11/19 21:13 Dose: 500 mg Sodium Chloride (Normal Saline) 1,000 mls @ 100 mls/hr IV ASDIRECTED ANJANA Oxybutynin Chloride (Oxybutynin Er) 5 mg PO DAILY [facility] Last Admin: 01/11/19 15:00 Dose: 5 mg Sodium Chloride (Saline Flush) 10 ml FLUSH ASDIRECTED PRN PRN Reason: Keep Vein Open Last Admin: 01/11/19 12:49 Dose: 10 ml Tamsulosin HCl (Flomax) 0.4 mg PO DAILY [facility] Last Admin: 01/11/19 15:00 Dose: 0.4 mg Zolpidem Tartrate (Ambien) 10 mg PO BEDTIME PRN PRN Reason: Insomnia Last Admin: 01/11/19 21:51 Dose: 10 mg Discontinued Medications Ceftriaxone Sodium (Rocephin) 2 gm IVPUSH ONETIME ONE Stop: 01/11/19 12:38 Last Admin: 01/11/19 12:44 Dose: 2 gm Lisinopril/HCTZ (Lisinopril/Hctz 10-12.5 Mg) tab PO BEDTIME ANJANA Sodium Chloride (Normal Saline) 500 mls @ 500 mls/hr IV .BOLUS ONE Stop: 01/11/19 11:26 Last Admin: 01/11/19 10:57 Dose: 500 mls/hr
[2019-01-12] MEDS: Ciprofloxacin 500 MG Tab PO SCH (09:32)
[2019-01-12] MEDS: Oxybutynin 5 MG Tab.ER PO SCH (09:32)
[2019-01-12] MEDS: Tamsulosin 0.4 MG Cap.ER PO SCH (09:32)
[2019-01-12 14:03] VITALS: BP 149/68
== END 2019-01-12 11:13 | disposition home or self-care (01) ==
LOC: FB.ED 10:05 → FB.MS 13:45
PROVIDERS: ADMIT Family Medicine; ATTEND Family Medicine
DX: N30.01 Acute cystitis with hematuria (principal); R53.1 Weakness; M62.830 Muscle spasm of back; I10 Essential (primary) hypertension; K21.9 Gastro-esophageal reflux disease without esophagitis; Z87.442 Personal history of urinary calculi; Z88.2 Allergy status to sulfonamides; Z88.8 Allergy status to other drugs, medicaments and biological substances; Z79.899 Other long term (current) drug therapy; Z85.46 Personal history of malignant neoplasm of prostate; Z98.890 Other specified postprocedural states; Z87.891 Personal history of nicotine dependence
CPT/HCPCS: 36415; 51701; 74176; 80048; 80053; 81001; 83605; 84484; 85025; 85610; 87040; 87086; 93005; 96361; 96374; 99284; A9270; J0696; J7040

== ENCOUNTER 2019-01-18 08:17 | Inpatient (IN) | payer MEDICARE, BC ==
--- NOTE | 2019-01-18 09:08 | EDM.PDOC ---
ED HPI GENERAL MEDICAL PROBLEM - General Chief Complaint: Lower Extremity Injury/Pain Stated Complaint: FALL Time Seen by Provider: 01/18/19 08:42 Source of Information: Reports: Patient, Family () History Limitations: Reports: No Limitations - History of Present Illness INITIAL COMMENTS - FREE TEXT/NARRATIVE: 83-year-old male who reportedly fell while going to the bathroom at approximately 4:30 AM today. The patient and the report that he landed on his buttock and did not hit his head. He did not have any dizziness or syncopal episode and he did not lose consciousness. His legs just simply "gave out" on him and he collapsed to the floor. The tells me that he has been becoming more weak over the past week and he is having difficulties standing and ambulating. These difficulties have apparently been progressive. The does report a fever a few days ago but he has no fever now. No chills. No nausea or vomiting. He has been eating and drinking normally. He has been intermittently complaining of left side and back pain and he seemed to complain more of this after the fall and he does complain of pain in his left hip, lower back and pelvis area that he rates as an 8/10 at present. He finds it hard to describe the pain but he does state that it is sharp at times. It does seem to be worse with palpation but it is present even without palpation. It doesn't seem to radiate. He is able to move his legs and his left hip without difficulty. does report he has complained intermittently of abdominal pain. He has been able to urinate. No hematuria noted. There are no other associated signs or symptoms. There are no other modifying factors. Apparently the patient was just recently admitted here with urinary tract infection on 01/11/2019 and was discharged the following day secondary to family's request to go home. According to the the patient's weakness has been progressive over time since discharge on 01/12/2019. In addition prior to admission here the patient had been [place] with laser treatment of a stone and placement of a stent in the right ureter. 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 (see below) (Nothing) back (left) Pain Score (Numeric/FACES): 8 - Related Data Allergies Allergy/AdvReac Type Severity Reaction Status Date / Time pantoprazole sodium Allergy Rash Verified 01/18/19 08:25 [From Protonix] Sulfa (Sulfonamide Allergy Rash Verified 01/18/19 08:25 Antibiotics) Home Meds: Home Meds Zolpidem [Ambien] 10 mg PO BEDTIME 11/22/14 [History] Lisinopril/Hydrochlorothiazide [Lisinopril-Hctz 10-12.5 mg Tab] 0.5 tab PO BEDTIME PRN 01/11/19 [History] Oxybutynin [Oxybutynin ER] 5 mg PO DAILY #30 tab.er 01/12/19 [Rx] Tamsulosin [Flomax] 0.4 mg PO DAILY #30 cap.er 01/12/19 [Rx] Ranitidine HCl [Ranitidine] 150 mg PO BID 01/18/19 [History] Past Medical History HEENT History: Reports: Cataract, Glaucoma, Other (See Below) Other HEENT History: ringing in ears, has bilat cataracts Cardiovascular History: Reports: Hypertension Gastrointestinal History: Reports: Chronic Constipation, GERD Genitourinary History: Reports: Prostate Disorder, Renal Calculus, Other (See Below) Other Genitourinary History: hx prostate CA, has had radiation in past. Musculoskeletal History: Reports: Arthritis, Back Pain, Chronic, Fracture, Other (See Below) Other Musculoskeletal History: fx R hand, hx bursitis bilat hips Endocrine/Metabolic History: Reports: Obesity/BMI 30+ Oncologic (Cancer) History: Reports: Prostate Other Oncologic History: Has had prostate CA in past, had radiation for same. - Infectious Disease History Infectious Disease History: Reports: Chicken Pox, Shingles - Past Surgical History HEENT Surgical History: Reports: Cataract Surgery GI Surgical History: Reports: Cholecystectomy, Colonoscopy Male Surgical History: Reports: Renal Calculus Neurological Surgical History: Reports: Other (See Below) Other Neurological Surgeries/Procedures: back surgery x 3 Dermatological Surgical History: Reports: None Social & Family History - Tobacco Use Smoking Status *Q: Former Smoker Tobacco Use Comment: states that he was a smoker long time ago when he was with his 20's and quit. - Caffeine Use Caffeine Use: Reports: Coffee, Soda, Tea - Alcohol Use Alcohol Use History: Yes Alcohol Use Frequency: Rarely - Living Situation & Occupation Living situation: Reports: (Lives at home with his ) Occupation: Retired Social History Comment: Son voices concerns over his mother's ability to help his father at home. Review of Systems - Review of Systems Review Of Systems: See Below Constitutional: Reports: No Symptoms Eyes: Reports: No Symptoms Ears: Reports: No Symptoms Nose: Reports: No Symptoms Mouth/Throat: Reports: No Symptoms Respiratory: Reports: No Symptoms Cardiovascular: Reports: No Symptoms GI/Abdominal: Reports: Abdominal Pain (Intermittent complaints of abdominal pain ). Denies: Nausea, Vomiting Genitourinary: Denies: Dysuria, Hematuria Musculoskeletal: Reports: Back Pain, Other (Pelvis and hip pain) Skin: Reports: No Symptoms Neurological: Reports: No Symptoms ED EXAM, GENERAL - Physical Exam Exam: See Below Exam Limited By: No Limitations General Appearance: Alert, WD/WN, Mild Distress Eye Exam: Bilateral Eye: EOMI, Normal Inspection, PERRL Ears: Normal External Exam Ear Exam: Bilateral Ear: Auricle Normal Nose: Normal Inspection, Normal Mucosa, No Blood Throat/Mouth: Normal Voice, No Airway Compromise, Other (Somewhat dry mucous membranes) Head: Atraumatic, Normocephalic Neck: Normal Inspection, Supple, Non-Tender, Full Range of Motion Respiratory/Chest: No Respiratory Distress, Lungs Clear, Normal Breath Sounds, No Accessory Muscle Use, Chest Non-Tender Cardiovascular: Normal Peripheral Pulses, Regular Rate, Rhythm, No JVD Peripheral Pulses: 2+: Radial (L), Radial (R) GI/Abdominal: Normal Bowel Sounds, Soft, Non-Tender, No Distention, No Mass Back Exam: Normal Inspection. No: Vertebral Tenderness Extremities: Normal Inspection, Normal Range of Motion, Normal Capillary Refill , Other (Some tenderness and left lower back and buttock area) Neurological: Alert, Oriented, CN II-XII Intact, No Motor/Sensory Deficits Skin Exam: Warm, Dry, Intact, Normal Color, No Rash Course - Vital Signs Last Recorded V/S: Last Vital Signs Temp 36.7 C 01/18/19 08:25 Pulse 74 01/18/19 10:40 Resp 17 01/18/19 10:40 BP 125/55 L 01/18/19 10:40 Pulse Ox 97 01/18/19 10:40 - Orders/Labs/Meds Orders: Active Orders 24 hr Category Date Time Status Abdomen Pelvis wo Cont [CT] Stat Exams 01/18/19 09:13 Taken Lumbar Spine wo Cont [CT] Stat Exams 01/18/19 09:13 Taken Pelvis wo Cont [CT] Stat Exams 01/18/19 09:13 Taken CULTURE BLOOD [BC] Urgent Lab 01/18/19 09:25 Received CULTURE BLOOD [BC] Urgent Lab 01/18/19 09:30 Received CULTURE URINE [RM] Stat Lab 01/18/19 08:32 Received Sodium Chloride 0.9% [Saline Flush] Med 01/18/19 09:20 Active 10 ml FLUSH ASDIRECTED PRN Blood Culture x2 Reflex Set [OM.PC] Urgent Oth 01/18/19 09:19 Ordered Peripheral IV Insertion Adult [OM.PC] Routine Oth 01/18/19 09:20 Ordered Medication Orders Sodium Chloride (Saline Flush) 10 ml FLUSH ASDIRECTED PRN PRN Reason: Keep Vein Open Labs: Laboratory Tests 01/18/19 01/18/19 01/18/19 Range/Units 08:32 09:25 09:25 WBC 10.6 (4.5-12.0) X10-3/uL RBC 4.74 (4.30-5.75) x10(6)uL Hgb 13.8 (13.5-17.8) g/dL Hct 40.1 (30.0-51.3) % MCV 84.6 (80-96) fL MCH 29.0 (27.7-33.6) pg MCHC 34.3 (32.2-35.4) g/dL RDW 14.0 (11.5-15.5) % Plt Count 157 (125-369) X10(3)uL MPV 8.3 (7.4-10.4) fL Neut % (Auto) 71.4 (46-82) % Lymph % (Auto) 17.8 (13-37) % [place] % (Auto) 8.7 (4-12) % Eos % (Auto) 2 (1.0-5.0) % Baso % (Auto) 1 (0-2) % Neut # (Auto) 7.5 (1.6-8.3) # Lymph # (Auto) 1.9 (0.6-5.0) # [place] # (Auto) 0.9 (0.0-1.3) # Eos # (Auto) 0.2 (0.0-0.8) # Baso # (Auto) 0.1 (0.0-0.2) # Sodium 137 (135-145) mmol/L Potassium 4.3 (3.5-5.3) mmol/L Chloride 102 (100-110) mmol/L Carbon Dioxide 26 (21-32) mmol/L BUN 27 H D (7-18) mg/dL Creatinine 1.6 H (0.70-1.30) mg/dL Est Cr Clr Drug Dosing 36.75 mL/min Estimated GFR (MDRD) 42 L (>60) BUN/Creatinine Ratio 16.9 (9-20) Glucose 85 (80-116) mg/dL Calcium 9.3 (8.6-10.2) mg/dL Total Bilirubin 0.6 (0.1-1.3) mg/dL AST 12 (5-25) IU/L ALT 24 (12-36) U/L Alkaline Phosphatase 73 (56-112) IU/L Creatine Kinase 32 L (60-160) IU/L C-Reactive Protein (0.5-0.9) mg/dL Total Protein 6.4 (6.0-8.0) g/dL Albumin 3.2 (3.2-4.6) g/dL Globulin 3.2 g/dL Albumin/Globulin Ratio 1.0 Urine Color Yellow (YELLOW) Urine Appearance Cloudy (CLEAR) Urine pH 5.0 (5.0-6.5) Ur Specific [place] 1.015 (1.010-1.025) Urine Protein 30 H (NEGATIVE) mg/dL Urine Glucose (UA) Normal (NORMAL) mg/dL Urine Ketones Negative (NEGATIVE) mg/dL Urine Occult Blood Large H (NEGATIVE) Urine Nitrite Negative (NEGATIVE) Urine Bilirubin Negative (NEGATIVE) Urine Urobilinogen Normal (NEGATIVE) mg/dL Ur Leukocyte Esterase Large H (NEGATIVE) Urine RBC >100 H (0-5) Urine WBC >100 H (0-5) Ur Squamous Epith Cells Occasional (NS,R,O) Urine Bacteria Many H (NS) Urine Yeast Moderate H (NS) 01/18/19 Range/Units 09:25 WBC (4.5-12.0) X10-3/uL RBC (4.30-5.75) x10(6)uL Hgb (13.5-17.8) g/dL Hct (30.0-51.3) % MCV (80-96) fL MCH (27.7-33.6) pg MCHC (32.2-35.4) g/dL RDW (11.5-15.5) % Plt Count (125-369) X10(3)uL MPV (7.4-10.4) fL Neut % (Auto) (46-82) % Lymph % (Auto) (13-37) % [place] % (Auto) (4-12) % Eos % (Auto) (1.0-5.0) % Baso % (Auto) (0-2) % Neut # (Auto) (1.6-8.3) # Lymph # (Auto) (0.6-5.0) # [place] # (Auto) (0.0-1.3) # Eos # (Auto) (0.0-0.8) # Baso # (Auto) (0.0-0.2) # Sodium (135-145) mmol/L Potassium (3.5-5.3) mmol/L Chloride (100-110) mmol/L Carbon Dioxide (21-32) mmol/L BUN (7-18) mg/dL Creatinine (0.70-1.30) mg/dL Est Cr Clr Drug Dosing mL/min Estimated GFR (MDRD) (>60) BUN/Creatinine Ratio (9-20) Glucose (80-116) mg/dL Calcium (8.6-10.2) mg/dL Total Bilirubin (0.1-1.3) mg/dL AST (5-25) IU/L ALT (12-36) U/L Alkaline Phosphatase (56-112) IU/L Creatine Kinase (60-160) IU/L C-Reactive Protein 3.5 H* (0.5-0.9) mg/dL Total Protein (6.0-8.0) g/dL Albumin (3.2-4.6) g/dL Globulin g/dL Albumin/Globulin Ratio Urine Color (YELLOW) Urine Appearance (CLEAR) Urine pH (5.0-6.5) Ur Specific [place] (1.010-1.025) Urine Protein (NEGATIVE) mg/dL Urine Glucose (UA) (NORMAL) mg/dL Urine Ketones (NEGATIVE) mg/dL Urine Occult Blood (NEGATIVE) Urine Nitrite (NEGATIVE) Urine Bilirubin (NEGATIVE) Urine Urobilinogen (NEGATIVE) mg/dL Ur Leukocyte Esterase (NEGATIVE) Urine RBC (0-5) Urine WBC (0-5) Ur Squamous Epith Cells (NS,R,O) Urine Bacteria (NS) Urine Yeast (NS) Meds: Medications Generic Name Dose Route Start Last Admin Trade Name Freq PRN Reason Stop Dose Admin Sodium Chloride 10 ml 01/18/19 09:20 Saline Flush FLUSH ASDIRECTED PRN Keep Vein Open - Radiology Interpretation Free Text/Narrative:: CT scan of abdomen and pelvis shows that the stent is in appropriate position on the right side ureter. There is no evidence of left ureterolithiasis. The appendix still appears to be slightly dilated but with no evidence of inflammation and is unchanged from previous CT scan. This is per the [facility] radiologist. CT scan of lumbar spine shows old L1 compression fracture but no new fractures per the [facility] radiologist. CT scan of pelvis and left hip showed no fracture per the [facility] radiologist. - Re-Assessments/Exams Free Text/Narrative Re-Assessment/Exam: 01/18/19 12:20: Patient's laboratory tests show evidence of acute kidney injury with dehydration. There is also inflammatory marker elevation. The urinalysis shows continuing infection. Patient's CT scans showed no acute abnormality. He does appear to have a persisting urinary tract infection despite antibiotic therapy. He has had progressive weakness and has inability to do ADLs. The patient is at significant risk for further falls and morbidity related to this. And he has not responded to outpatient antibiotic therapy with worsening of his condition rather than improvement. Therefore, the plan of care cannot be completed as an outpatient and the patient will need admission for IV antibiotic and antifungal treatment with IV fluids. He will also need other cares which cannot be provided for him in the outpatient setting as well. Therefore, the patient will be admitted for the services. I expect that the plan of care will require at least a 2 midnight hospital stay. I have discussed this with the patient and the family and they are to agree with this plan. I did call and discussed the patient's case with Dr. Guerrero and he has agreed to admit the patient. I will place admitting orders and Dr. Guerrero will see the patient this afternoon. I will treat the patient with IV Rocephin and Diflucan. Urine culture and blood cultures have been obtained. Departure - Departure Time of Disposition: 12:30 Disposition: Admitted As Inpatient 67 Condition: Fair Clinical Impression: Rapidly progressive weakness, Failure of outpatient treatment Urinary tract infection Qualifiers: Urinary tract infection type: site unspecified Hematuria presence: with hematuria Qualified Code(s): N39.0 - Urinary tract infection, site not specified ; R31.9 - Hematuria, unspecified - Discharge Information Referrals: Bowen Diallo MD [Primary Care Provider] - Forms: ED Department Discharge - My Orders Last 24 Hours: My Active Orders 01/18/19 08:32 CULTURE URINE [RM] Stat 01/18/19 09:13 Abdomen Pelvis wo Cont [CT] Stat Lumbar Spine wo Cont [CT] Stat Pelvis wo Cont [CT] Stat 01/18/19 09:19 Blood Culture x2 Reflex Set [OM.PC] Urgent 01/18/19 09:20 Sodium Chloride 0.9% [Saline Flush] 10 ml FLUSH ASDIRECTED PRN Peripheral IV Insertion Adult [OM.PC] Routine 01/18/19 09:25 CULTURE BLOOD [BC] Urgent 01/18/19 09:30 CULTURE BLOOD [BC] Urgent - Assessment/Plan Last 24 Hours: My Active Orders 01/18/19 08:32 CULTURE URINE [RM] Stat 01/18/19 09:13 Abdomen Pelvis wo Cont [CT] Stat Lumbar Spine wo Cont [CT] Stat Pelvis wo Cont [CT] Stat 01/18/19 09:19 Blood Culture x2 Reflex Set [OM.PC] Urgent 01/18/19 09:20 Sodium Chloride 0.9% [Saline Flush] 10 ml FLUSH ASDIRECTED PRN Peripheral IV Insertion Adult [OM.PC] Routine 01/18/19 09:25 CULTURE BLOOD [BC] Urgent 01/18/19 09:30 CULTURE BLOOD [BC] Urgent
[2019-01-18] MEDS ORDERED: Ondansetron 4 MG/2 ML SDV IV PRN (12:34)
[2019-01-18] MEDS ORDERED: Sodium Chloride 0.9% 1,000 ML IV SCH ×2 (12:45→17:30)
[2019-01-18] MEDS ORDERED: cefTRIAXone 1 GM Vial IVPUSH SCH (12:45)
[2019-01-18] MEDS ORDERED: cefTRIAXone 1 GM in Sodium Chloride 0.9% 50 ML IV SCH (12:45)
[2019-01-18] MEDS ORDERED: Fluconazole/Normal Saline 200 MG in Premix Bag 1 BAG IV SCH (13:00)
[2019-01-18] MEDS: cefTRIAXone 1 GM Vial IVPUSH SCH (16:02)
[2019-01-18] MEDS: Sodium Chloride 0.9% 10 ML Syringe FLUSH PRN ×2 (16:02→17:16)
[2019-01-18] MEDS: Fluconazole/Normal Saline 200 MG in Premix Bag 1 BAG IV SCH (16:08)
[2019-01-18] MEDS: Zolpidem 10 MG Tab PO SCH (21:46)
[2019-01-19] MEDS: Acetaminophen 325 MG Tab PO PRN ×2 (02:11→11:03)
--- NOTE | 2019-01-19 08:06 | PCM.PN ---
- General Info Date of Service: 01/19/19 Admission Dx/Problem (Free Text): Patient states he still feels weak and has some dysuria. He denies fevers, chills, abdominal pain or flank pain. He denies hematuria. - Patient Data Vitals - Most Recent: Last Vital Signs Temp 98.1 F 01/19/19 05:30 Pulse 78 01/19/19 05:30 Resp 18 01/19/19 05:30 BP 150/73 H 01/19/19 05:30 Pulse Ox 96 01/19/19 05:30 Weight - Most Recent: 212 lb 1.6 oz I&O - Last 24 Hours: Intake & Output 01/18/19 01/19/19 01/19/19 22:59 06:59 14:59 Output Total 1230 200 Balance -1230 -200 Lab Results Last 24 Hours: Laboratory Results - last 24 hr 01/18/19 01/18/19 01/18/19 Range/Units 08:32 09:25 09:25 WBC 10.6 (4.5-12.0) X10-3/uL RBC 4.74 (4.30-5.75) x10(6)uL Hgb 13.8 (13.5-17.8) g/dL Hct 40.1 (30.0-51.3) % MCV 84.6 (80-96) fL MCH 29.0 (27.7-33.6) pg MCHC 34.3 (32.2-35.4) g/dL RDW 14.0 (11.5-15.5) % Plt Count 157 (125-369) X10(3)uL MPV 8.3 (7.4-10.4) fL Neut % (Auto) 71.4 (46-82) % Lymph % (Auto) 17.8 (13-37) % [place] % (Auto) 8.7 (4-12) % Eos % (Auto) 2 (1.0-5.0) % Baso % (Auto) 1 (0-2) % Neut # (Auto) 7.5 (1.6-8.3) # Lymph # (Auto) 1.9 (0.6-5.0) # [place] # (Auto) 0.9 (0.0-1.3) # Eos # (Auto) 0.2 (0.0-0.8) # Baso # (Auto) 0.1 (0.0-0.2) # Sodium 137 (135-145) mmol/L Potassium 4.3 (3.5-5.3) mmol/L Chloride 102 (100-110) mmol/L Carbon Dioxide 26 (21-32) mmol/L BUN 27 H D (7-18) mg/dL Creatinine 1.6 H (0.70-1.30) mg/dL Est Cr Clr Drug Dosing 36.75 mL/min Estimated GFR (MDRD) 42 L (>60) BUN/Creatinine Ratio 16.9 (9-20) Glucose 85 (80-116) mg/dL Calcium 9.3 (8.6-10.2) mg/dL Total Bilirubin 0.6 (0.1-1.3) mg/dL AST 12 (5-25) IU/L ALT 24 (12-36) U/L Alkaline Phosphatase 73 (56-112) IU/L Creatine Kinase 32 L (60-160) IU/L C-Reactive Protein (0.5-0.9) mg/dL Total Protein 6.4 (6.0-8.0) g/dL Albumin 3.2 (3.2-4.6) g/dL Globulin 3.2 g/dL Albumin/Globulin Ratio 1.0 Urine Color Yellow (YELLOW) Urine Appearance Cloudy (CLEAR) Urine pH 5.0 (5.0-6.5) Ur Specific [place] 1.015 (1.010-1.025) Urine Protein 30 H (NEGATIVE) mg/dL Urine Glucose (UA) Normal (NORMAL) mg/dL Urine Ketones Negative (NEGATIVE) mg/dL Urine Occult Blood Large H (NEGATIVE) Urine Nitrite Negative (NEGATIVE) Urine Bilirubin Negative (NEGATIVE) Urine Urobilinogen Normal (NEGATIVE) mg/dL Ur Leukocyte Esterase Large H (NEGATIVE) Urine RBC >100 H (0-5) Urine WBC >100 H (0-5) Ur Squamous Epith Cells Occasional (NS,R,O) Urine Bacteria Many H (NS) Urine Yeast Moderate H (NS) 01/18/19 Range/Units 09:25 WBC (4.5-12.0) X10-3/uL RBC (4.30-5.75) x10(6)uL Hgb (13.5-17.8) g/dL Hct (30.0-51.3) % MCV (80-96) fL MCH (27.7-33.6) pg MCHC (32.2-35.4) g/dL RDW (11.5-15.5) % Plt Count (125-369) X10(3)uL MPV (7.4-10.4) fL Neut % (Auto) (46-82) % Lymph % (Auto) (13-37) % [place] % (Auto) (4-12) % Eos % (Auto) (1.0-5.0) % Baso % (Auto) (0-2) % Neut # (Auto) (1.6-8.3) # Lymph # (Auto) (0.6-5.0) # [place] # (Auto) (0.0-1.3) # Eos # (Auto) (0.0-0.8) # Baso # (Auto) (0.0-0.2) # Sodium (135-145) mmol/L Potassium (3.5-5.3) mmol/L Chloride (100-110) mmol/L Carbon Dioxide (21-32) mmol/L BUN (7-18) mg/dL Creatinine (0.70-1.30) mg/dL Est Cr Clr Drug Dosing mL/min Estimated GFR (MDRD) (>60) BUN/Creatinine Ratio (9-20) Glucose (80-116) mg/dL Calcium (8.6-10.2) mg/dL Total Bilirubin (0.1-1.3) mg/dL AST (5-25) IU/L ALT (12-36) U/L Alkaline Phosphatase (56-112) IU/L Creatine Kinase (60-160) IU/L C-Reactive Protein 3.5 H* (0.5-0.9) mg/dL Total Protein (6.0-8.0) g/dL Albumin (3.2-4.6) g/dL Globulin g/dL Albumin/Globulin Ratio Urine Color (YELLOW) Urine Appearance (CLEAR) Urine pH (5.0-6.5) Ur Specific [place] (1.010-1.025) Urine Protein (NEGATIVE) mg/dL Urine Glucose (UA) (NORMAL) mg/dL Urine Ketones (NEGATIVE) mg/dL Urine Occult Blood (NEGATIVE) Urine Nitrite (NEGATIVE) Urine Bilirubin (NEGATIVE) Urine Urobilinogen (NEGATIVE) mg/dL Ur Leukocyte Esterase (NEGATIVE) Urine RBC (0-5) Urine WBC (0-5) Ur Squamous Epith Cells (NS,R,O) Urine Bacteria (NS) Urine Yeast (NS) Edil Results Last 24 Hours: Microbiology 01/18/19 08:32 Urine Culture - Preliminary Urine, Clean Catch Yeast Isolated Med Orders - Current: Current Medications Acetaminophen (Tylenol) 650 mg PO Q4H PRN PRN Reason: Pain (Mild 1-3)/fever Last Admin: 01/19/19 02:11 Dose: 650 mg Ceftriaxone Sodium (Rocephin) 1 gm IVPUSH Q24H [facility] Last Admin: 01/18/19 16:02 Dose: 1 gm Docusate Sodium (Colace) 100 mg PO BID PRN PRN Reason: Constipation Lisinopril/HCTZ (Lisinopril/Hctz 10-12.5 Mg) 0.5 tab PO BEDTIME PRN PRN Reason: Hypertension Fluconazole/Sodium Chloride (200 mg/ Premix) 100 mls @ 100 mls/hr IV Q24H [facility] Last Admin: 01/18/19 16:08 Dose: 100 mls/hr Sodium Chloride (Normal Saline) 1,000 mls @ 50 mls/hr IV ASDIRECTED [facility] Last Admin: 01/18/19 20:56 Dose: 50 mls/hr Ondansetron HCl (Zofran) 4 mg IV Q6H PRN PRN Reason: Nausea/Vomiting Oxybutynin Chloride (Oxybutynin Er) 5 mg PO DAILY [facility] Sodium Chloride (Saline Flush) 10 ml FLUSH ASDIRECTED PRN PRN Reason: Keep Vein Open Last Admin: 01/18/19 17:16 Dose: 10 ml Tamsulosin HCl (Flomax) 0.4 mg PO DAILY [facility] Zolpidem Tartrate (Ambien) 10 mg PO BEDTIME [facility] Last Admin: 01/18/19 21:46 Dose: 10 mg Discontinued Medications Sodium Chloride (Normal Saline) 1,000 mls @ 125 mls/hr IV ASDIRECTED [facility] - Exam General: Alert, Oriented, Cooperative Lungs: Clear to Auscultation, Normal Respiratory Effort Cardiovascular: Regular Rate, Regular Rhythm, No Murmurs Back Exam: Other (No CVA tenderness) Extremities: No Pedal Edema - Problem List & Annotations (1) Failure of outpatient treatment SNOMED Code(s): 815798815 Code(s): Z78.9 - OTHER SPECIFIED HEALTH STATUS Status: Acute Current Visit: Yes (2) Rapidly progressive weakness SNOMED Code(s): 29227297 Code(s): R53.1 - WEAKNESS Status: Acute Current Visit: Yes (3) UTI (urinary tract infection) SNOMED Code(s): 34827763 Code(s): N39.0 - URINARY TRACT INFECTION, SITE NOT SPECIFIED Status: Acute Current Visit: Yes Qualifiers: Urinary tract infection type: site unspecified Hematuria presence: with hematuria Qualified Code(s): N39.0 - Urinary tract infection, site not specified; R31.9 - Hematuria, unspecified (4) Generalized weakness SNOMED Code(s): 50777844 Code(s): R53.1 - WEAKNESS Status: Acute Current Visit: No (5) Palliative care status SNOMED Code(s): 954582432 Code(s): Z51.5 - ENCOUNTER FOR PALLIATIVE CARE Status: Acute Current Visit: No - Problem List Review Problem List Initiated/Reviewed/Updated: Yes - My Orders Last 24 Hours: My Active Orders 01/19/19 08:03 Consult to Occupational Therapy [OT Evaluation and Treatment] [CONS] Routine Consult to Physical Therapy [PT Evaluation and Treatment] [CONS] Routine 01/19/19 08:15 Enoxaparin [Lovenox] 30 mg SUBCUT Q24H - Plan Plan:: 1. DC IV fluids and saline lock IV. 2. Continue Rocephin IV. 3. DC daily weights, intake and output 4. Up with assist. 5. Lovenox for VTE prophylaxis 6. PT/OT evaluation.
[2019-01-19] MEDS: Enoxaparin 40 MG/0.4 ML Syringe SUBCUT SCH (08:47)
[2019-01-19] MEDS: Oxybutynin 5 MG Tab.ER PO SCH (08:47)
[2019-01-19] MEDS ORDERED: Tamsulosin 0.4 MG Cap.ER PO SCH (09:00)
[2019-01-19] MEDS ORDERED: Aluminum Hydroxide/Magnesium Hydroxide Susp 30 ML Cup PO PRN (12:53)
[2019-01-19] MEDS ORDERED: Carboxymethylcellulose Sodium 1% Ophth Gel 0.4 ML UD Box of 30 EYEBOTH PRN ×2 (15:18→15:56)
[2019-01-19] MEDS: cefTRIAXone 1 GM Vial IVPUSH SCH (15:30)
[2019-01-19] MEDS: Fluconazole/Normal Saline 200 MG in Premix Bag 1 BAG IV SCH (15:47)
[2019-01-19] MEDS ORDERED: Carboxymethylcellulose Sodium 0.5% Ophth Soln 15 ML Bottle ONE (16:30)
[2019-01-19] MEDS: Sodium Chloride 0.9% 10 ML Syringe FLUSH PRN (16:54)
[2019-01-19] MEDS: Zolpidem 10 MG Tab PO SCH (20:21)
--- NOTE | 2019-01-20 09:03 | PCM.PN ---
- General Info Date of Service: 01/20/19 Admission Dx/Problem (Free Text): Patient reports still weak and dysuria. He denies hematuria, CVA tenderness, abdominal pain, back pain, fever, chills, nausea, vomiting, coughing, SOB. - Patient Data Vitals - Most Recent: Last Vital Signs Temp 99.4 F 01/19/19 23:30 Pulse 76 01/19/19 23:30 Resp 17 01/19/19 23:30 BP 170/77 H 01/19/19 23:30 Pulse Ox 97 01/19/19 23:30 Weight - Most Recent: 212 lb 1.6 oz I&O - Last 24 Hours: Intake & Output 01/19/19 01/20/19 01/20/19 22:59 06:59 14:59 Intake Total 99 Balance 99 Lab Results Last 24 Hours: Laboratory Results - last 24 hr 01/20/19 Range/Units 08:00 Sodium 139 (135-145) mmol/L Potassium 4.5 (3.5-5.3) mmol/L Chloride 103 (100-110) mmol/L Carbon Dioxide 25 (21-32) mmol/L BUN 25 H (7-18) mg/dL Creatinine 1.3 (0.70-1.30) mg/dL Est Cr Clr Drug Dosing 46.66 mL/min Estimated GFR (MDRD) 53 L (>60) BUN/Creatinine Ratio 19.2 (9-20) Glucose 99 (80-116) mg/dL Calcium 9.2 (8.6-10.2) mg/dL Edil Results Last 24 Hours: Microbiology 01/18/19 08:32 Urine Culture - Final Urine, Clean Catch Yeast Isolated 01/18/19 09:25 Aerobic Blood Culture - Preliminary Blood - Venous - Lab Draw NO GROWTH AFTER 1 DAY Anaerobic Blood Culture - Preliminary NO GROWTH AFTER 1 DAY 01/18/19 09:30 Aerobic Blood Culture - Preliminary Blood - Venous NO GROWTH AFTER 1 DAY Anaerobic Blood Culture - Preliminary NO GROWTH AFTER 1 DAY Med Orders - Current: Current Medications Acetaminophen (Tylenol) 650 mg PO Q4H PRN PRN Reason: Pain (Mild 1-3)/fever Last Admin: 01/19/19 11:03 Dose: 650 mg Al Hydroxide/Mg Hydroxide (Mag-Al Susp) 30 ml PO Q2H PRN PRN Reason: Indigestion Last Admin: 01/19/19 13:46 Dose: 30 ml Artificial Tears (Refresh Tears 0.5%) 0 ml EYEBOTH QID PRN PRN Reason: Dry Eyes Ceftriaxone Sodium (Rocephin) 1 gm IVPUSH Q24H [facility] Last Admin: 01/19/19 15:30 Dose: 1 gm Docusate Sodium (Colace) 100 mg PO BID PRN PRN Reason: Constipation Enoxaparin Sodium (Lovenox) 40 mg SUBCUT Q24H [facility] Last Admin: 01/19/19 08:47 Dose: 40 mg Lisinopril/HCTZ (Lisinopril/Hctz 10-12.5 Mg) 0.5 tab PO BEDTIME PRN PRN Reason: Hypertension Fluconazole/Sodium Chloride (200 mg/ Premix) 100 mls @ 100 mls/hr IV Q24H [facility] Last Admin: 01/19/19 15:47 Dose: 100 mls/hr Sodium Chloride (Normal Saline) 1,000 mls @ 50 mls/hr IV ASDIRECTED [facility] Last Admin: 01/18/19 20:56 Dose: 50 mls/hr Ondansetron HCl (Zofran) 4 mg IV Q6H PRN PRN Reason: Nausea/Vomiting Oxybutynin Chloride (Oxybutynin Er) 5 mg PO DAILY [facility] Last Admin: 01/19/19 08:47 Dose: 5 mg Sodium Chloride (Saline Flush) 10 ml FLUSH ASDIRECTED PRN PRN Reason: Keep Vein Open Last Admin: 01/19/19 16:54 Dose: 10 ml Zolpidem Tartrate (Ambien) 10 mg PO BEDTIME [facility] Last Admin: 01/19/19 20:21 Dose: 10 mg Discontinued Medications Artificial Tears (Refresh Celluvisc) 0 each EYEBOTH ASDIRECTED PRN PRN Reason: Dry Eyes Artificial Tears (Refresh Celluvisc) 0 each EYEBOTH QID PRN PRN Reason: Dry Eyes Artificial Tears (Refresh Tears 0.5%) Confirm Administered Dose 15 ml .ROUTE .STK-MED ONE Stop: 01/19/19 16:31 Last Admin: 01/19/19 16:49 Dose: 1 drop Sodium Chloride (Normal Saline) 1,000 mls @ 125 mls/hr IV ASDIRECTED [facility] Tamsulosin HCl (Flomax) 0.4 mg PO DAILY ANJANA - Exam General: Alert, Oriented, Cooperative Lungs: Clear to Auscultation, Normal Respiratory Effort Cardiovascular: Regular Rate, Regular Rhythm, No Murmurs GI/Abdominal Exam: Soft, Non-Tender (Male) Exam: Normal Prostate Extremities: No Pedal Edema, Other (No CVA tenderness) - Problem List & Annotations (1) Failure of outpatient treatment SNOMED Code(s): 348787937 Code(s): Z78.9 - OTHER SPECIFIED HEALTH STATUS Status: Acute Current Visit: Yes (2) Rapidly progressive weakness SNOMED Code(s): 74893476 Code(s): R53.1 - WEAKNESS Status: Acute Current Visit: Yes (3) UTI (urinary tract infection) SNOMED Code(s): 85529401 Code(s): N39.0 - URINARY TRACT INFECTION, SITE NOT SPECIFIED Status: Acute Current Visit: Yes Qualifiers: Urinary tract infection type: site unspecified Hematuria presence: with hematuria Qualified Code(s): N39.0 - Urinary tract infection, site not specified; R31.9 - Hematuria, unspecified (4) Generalized weakness SNOMED Code(s): 72995769 Code(s): R53.1 - WEAKNESS Status: Acute Current Visit: No (5) Palliative care status SNOMED Code(s): 918272048 Code(s): Z51.5 - ENCOUNTER FOR PALLIATIVE CARE Status: Acute Current Visit: No (6) Acute renal failure SNOMED Code(s): 04058599 Code(s): N17.9 - ACUTE KIDNEY FAILURE, UNSPECIFIED Status: Acute Current Visit: Yes - Problem List Review Problem List Initiated/Reviewed/Updated: Yes - My Orders Last 24 Hours: My Active Orders 01/19/19 08:03 Consult to Occupational Therapy [OT Evaluation and Treatment] [CONS] Routine Consult to Physical Therapy [PT Evaluation and Treatment] [CONS] Routine 01/19/19 08:07 Convert IV to Saline Lock [OM.PC] Routine 01/19/19 09:00 Enoxaparin [Lovenox] 40 mg SUBCUT Q24H 01/19/19 12:53 Alum Hydroxide/Mag Hydroxide [Mag-Al Susp] 30 ml PO Q2H PRN 01/19/19 16:33 Carboxymethylcellulose Sodium [Refresh Tears 0.5%] 0 ml EYEBOTH QID PRN 01/20/19 07:46 UA W/MICROSCOPIC [URIN] Routine 01/20/19 07:47 Renal Comp [US] Routine 01/20/19 08:55 CXR [Chest 2V] [CR] Routine - Plan Plan:: 1. BMP, UA repeat today. 2. Renal ultrasound, chest X-ray. 3. PT/OT. 4. Looking for other causes of weakness besides . 5. Continue antifungal until we assess UA.
[2019-01-20] MEDS: Oxybutynin 5 MG Tab.ER PO SCH (09:09)
[2019-01-20] MEDS: Enoxaparin 40 MG/0.4 ML Syringe SUBCUT SCH (10:06)
[2019-01-20] MEDS: Sodium Chloride 0.9% 10 ML Syringe FLUSH PRN ×3 (10:45→17:41)
[2019-01-20] MEDS: Carboxymethylcellulose Sodium 0.5% Ophth Soln 15 ML Bottle EYEBOTH PRN (16:11)
[2019-01-20] MEDS: cefTRIAXone 1 GM Vial IVPUSH SCH (16:16)
[2019-01-20] MEDS: Fluconazole/Normal Saline 200 MG in Premix Bag 1 BAG IV SCH (16:29)
[2019-01-20] MEDS: Zolpidem 10 MG Tab PO SCH (20:17)
[2019-01-21] MEDS ORDERED: Bisacodyl 10 MG Supp RECTAL PRN (09:34)
--- NOTE | 2019-01-21 09:34 | PCM.PN ---
- General Info Date of Service: 01/21/19 Admission Dx/Problem (Free Text): patient still feels weak and he is sleep well because he says people are weak and up at night. He has no back pain, fevers or chills or nausea. He says his little burning when he first starts to urinate but that's improving. Patient also states he has a BM in 4 days would like something for fossa patient. - Patient Data Vitals - Most Recent: Last Vital Signs Temp 98.1 F 01/21/19 00:00 Pulse 78 01/21/19 00:00 Resp 17 01/21/19 00:00 BP 174/90 H 01/21/19 00:00 Pulse Ox 97 01/21/19 00:00 Weight - Most Recent: 212 lb 1.6 oz I&O - Last 24 Hours: Intake & Output 01/20/19 01/21/19 01/21/19 22:59 06:59 14:59 Intake Total 100 Balance 100 Edil Results Last 24 Hours: Microbiology 01/18/19 09:30 Aerobic Blood Culture - Preliminary Blood - Venous NO GROWTH AFTER 2 DAYS Anaerobic Blood Culture - Preliminary NO GROWTH AFTER 2 DAYS 01/18/19 09:25 Aerobic Blood Culture - Preliminary Blood - Venous - Lab Draw NO GROWTH AFTER 2 DAYS Anaerobic Blood Culture - Preliminary NO GROWTH AFTER 2 DAYS 01/18/19 08:32 Urine Culture - Final Urine, Clean Catch Yeast Isolated Med Orders - Current: Current Medications Acetaminophen (Tylenol) 650 mg PO Q4H PRN PRN Reason: Pain (Mild 1-3)/fever Last Admin: 01/19/19 11:03 Dose: 650 mg Al Hydroxide/Mg Hydroxide (Mag-Al Susp) 30 ml PO Q2H PRN PRN Reason: Indigestion Last Admin: 01/19/19 13:46 Dose: 30 ml Artificial Tears (Refresh Tears 0.5%) 0 ml EYEBOTH QID PRN PRN Reason: Dry Eyes Last Admin: 01/20/19 16:11 Dose: 1 drop Ceftriaxone Sodium (Rocephin) 1 gm IVPUSH Q24H [facility] Last Admin: 01/20/19 16:16 Dose: 1 gm Docusate Sodium (Colace) 100 mg PO BID PRN PRN Reason: Constipation Enoxaparin Sodium (Lovenox) 40 mg SUBCUT Q24H [facility] Last Admin: 01/20/19 10:06 Dose: 40 mg Lisinopril/HCTZ (Lisinopril/Hctz 10-12.5 Mg) 0.5 tab PO BEDTIME PRN PRN Reason: Hypertension Fluconazole/Sodium Chloride (200 mg/ Premix) 100 mls @ 100 mls/hr IV Q24H [facility] Last Admin: 01/20/19 16:29 Dose: 100 mls/hr Sodium Chloride (Normal Saline) 1,000 mls @ 50 mls/hr IV ASDIRECTED [facility] Last Admin: 01/18/19 20:56 Dose: 50 mls/hr Ondansetron HCl (Zofran) 4 mg IV Q6H PRN PRN Reason: Nausea/Vomiting Oxybutynin Chloride (Oxybutynin Er) 5 mg PO DAILY [facility] Last Admin: 01/20/19 09:09 Dose: 5 mg Sodium Chloride (Saline Flush) 10 ml FLUSH ASDIRECTED PRN PRN Reason: Keep Vein Open Last Admin: 01/20/19 17:41 Dose: 10 ml Zolpidem Tartrate (Ambien) 10 mg PO BEDTIME [facility] Last Admin: 01/20/19 20:17 Dose: 10 mg Discontinued Medications Artificial Tears (Refresh Celluvisc) 0 each EYEBOTH ASDIRECTED PRN PRN Reason: Dry Eyes Artificial Tears (Refresh Celluvisc) 0 each EYEBOTH QID PRN PRN Reason: Dry Eyes Artificial Tears (Refresh Tears 0.5%) Confirm Administered Dose 15 ml .ROUTE .K-MED ONE Stop: 01/19/19 16:31 Last Admin: 01/19/19 16:49 Dose: 1 drop Sodium Chloride (Normal Saline) 1,000 mls @ 125 mls/hr IV ASDIRECTED [facility] Tamsulosin HCl (Flomax) 0.4 mg PO DAILY [facility] - Exam General: Alert, Oriented, Cooperative Lungs: Normal Respiratory Effort GI/Abdominal Exam: Soft, Non-Tender, No Distention (Male) Exam: Other (penis looks normal without erythema) Extremities: No Pedal Edema - Problem List & Annotations (1) Failure of outpatient treatment SNOMED Code(s): 289554958 Code(s): Z78.9 - OTHER SPECIFIED HEALTH STATUS Status: Acute Current Visit: Yes (2) Rapidly progressive weakness SNOMED Code(s): 73679223 Code(s): R53.1 - WEAKNESS Status: Acute Current Visit: Yes (3) UTI (urinary tract infection) SNOMED Code(s): 28102807 Code(s): N39.0 - URINARY TRACT INFECTION, SITE NOT SPECIFIED Status: Acute Current Visit: Yes Qualifiers: Urinary tract infection type: site unspecified Hematuria presence: with hematuria Qualified Code(s): N39.0 - Urinary tract infection, site not specified; R31.9 - Hematuria, unspecified (4) Generalized weakness SNOMED Code(s): 93562650 Code(s): R53.1 - WEAKNESS Status: Acute Current Visit: No (5) Palliative care status SNOMED Code(s): 957355226 Code(s): Z51.5 - ENCOUNTER FOR PALLIATIVE CARE Status: Acute Current Visit: No (6) Acute renal failure SNOMED Code(s): 32265037 Code(s): N17.9 - ACUTE KIDNEY FAILURE, UNSPECIFIED Status: Acute Current Visit: Yes (7) Constipation SNOMED Code(s): 63693815 Code(s): K59.00 - CONSTIPATION, UNSPECIFIED Status: Acute Current Visit: Yes - Problem List Review Problem List Initiated/Reviewed/Updated: Yes - My Orders Last 24 Hours: My Active Orders 01/20/19 08:55 CXR [Chest 2V] [CR] Routine - Assessment Assessment:: 1. Change vital so he is not woken up and night so he can sleep. 2. Dulcolax upon when necessary for constipation 3. His mentioned that maybe they would like swing bed. Have to wait for social work job titles to evaluate whether he should go swing bed or to [facility] 4. Continue antifungal and antibiotic until I get the next culture from the second urine. - Plan Plan:: 1. BMP, UA repeat today. 2. Renal ultrasound, chest X-ray. 3. PT/OT. 4. Looking for other causes of weakness besides . 5. Continue antifungal until we assess UA.
--- NOTE | 2019-01-21 09:46 | PCM.HP ---
H&P History of Present Illness - General Date of Service: 01/19/19 Admit Problem/Dx: this 83-year-old male patient that was brought into the ER because of a fall. He was recently admitted for hematuria and UTIs sent home. He grew yeast. He's been very weak ever since he had a ureter stent after lithotripsy and kidney stones. He's had a little blood in his urine and that's improved but he has some dysuria. No buttock pain at this time but very weak. Denies fevers, chills or nausea. back (left) Pain Score (Numeric/FACES): 8 - Related Data Allergies/Adverse Reactions: Allergies Allergy/AdvReac Type Severity Reaction Status Date / Time pantoprazole sodium Allergy Rash Verified 01/18/19 08:25 [From Protonix] Sulfa (Sulfonamide Allergy Rash Verified 01/18/19 08:25 Antibiotics) Home Medications: Home Meds Zolpidem [Ambien] 10 mg PO BEDTIME 11/22/14 [History] Lisinopril/Hydrochlorothiazide [Lisinopril-Hctz 10-12.5 mg Tab] 0.5 tab PO BEDTIME PRN 01/11/19 [History] Oxybutynin [Oxybutynin ER] 5 mg PO DAILY #30 tab.er 01/12/19 [Rx] Tamsulosin [Flomax] 0.4 mg PO DAILY #30 cap.er 01/12/19 [Rx] Ranitidine HCl [Ranitidine] 150 mg PO BID 01/18/19 [History] Past Medical History HEENT History: Reports: Cataract, Glaucoma, Other (See Below) Other HEENT History: ringing in ears, has bilat cataracts Cardiovascular History: Reports: Hypertension Gastrointestinal History: Reports: Chronic Constipation, GERD Genitourinary History: Reports: Prostate Disorder, Renal Calculus, Other (See Below) Other Genitourinary History: hx prostate CA, has had radiation in past. Musculoskeletal History: Reports: Arthritis, Back Pain, Chronic, Fracture, Other (See Below) Other Musculoskeletal History: fx R hand, hx bursitis bilat hips Neurological History: Reports: None Endocrine/Metabolic History: Reports: Obesity/BMI 30+ Oncologic (Cancer) History: Reports: Prostate Other Oncologic History: Has had prostate CA in past, had radiation for same. Dermatologic History: Reports: Other (See Below) Other Dermatologic History: rash to groin - Infectious Disease History Infectious Disease History: Reports: Chicken Pox, Shingles - Past Surgical History HEENT Surgical History: Reports: Cataract Surgery GI Surgical History: Reports: Cholecystectomy, Colonoscopy Male Surgical History: Reports: Renal Calculus Neurological Surgical History: Reports: Other (See Below) Other Neurological Surgeries/Procedures: back surgery x 3 Dermatological Surgical History: Reports: None Social & Family History - Family History Family Medical History: Noncontributory - Tobacco Use Smoking Status *Q: Former Smoker Years of Tobacco use: 2 Used Tobacco, but Quit: Yes Month/Year Tobacco Last Used: 0 Tobacco Use Comment: Smoke for a couple days Second Hand Smoke Exposure: No - Caffeine Use Caffeine Use: Reports: Coffee, Tea - Recreational Drug Use Recreational Drug Use: No - Living Situation & Occupation Living situation: Reports: (Lives at home with his ) Occupation: Retired H&P Review of Systems - Review of Systems: Review Of Systems: See Below General: Reports: Weakness. Denies: Fever, Chills HEENT: Reports: No Symptoms Pulmonary: Reports: No Symptoms Cardiovascular: Reports: No Symptoms Gastrointestinal: Reports: No Symptoms Genitourinary: Reports: Dysuria, Frequency, Burning, Urgency, Hematuria Musculoskeletal: Reports: No Symptoms Skin: Reports: No Symptoms Psychiatric: Reports: No Symptoms Neurological: Reports: No Symptoms Hematologic/Lymphatic: Reports: No Symptoms Immunologic: Reports: No Symptoms Exam - Exam Exam: See Below - Vital Signs Vital Signs: Last Vital Signs Temp 98.1 F 01/21/19 00:00 Pulse 78 01/21/19 00:00 Resp 17 01/21/19 00:00 BP 174/90 H 01/21/19 00:00 Pulse Ox 97 01/21/19 00:00 Weight: 212 lb 1.6 oz - Exam General: Alert, Oriented, Cooperative HEENT: Hearing Intact, Posterior Pharynx Clear, TMs Clear Neck: Supple, Trachea Midline, 2 Lungs: Clear to Auscultation, Normal Respiratory Effort Cardiovascular: Regular Rate, Regular Rhythm. No: Systolic Murmur GI/Abdominal Exam: Normal Bowel Sounds, Soft, Non-Tender, No Organomegaly, No Distention, No Abnormal Bruit Back Exam: Normal Inspection. No: CVA Tenderness (R), CVA Tenderness (L) Extremities: Normal Inspection, No Pedal Edema Skin: Warm, Dry, Intact Neuro Extensive - Mental Status: Alert, Oriented x3, Normal Cognition - Patient Data Result Diagrams: 01/18/19 09:25 01/20/19 08:00 Edil Results Last 24 hrs: Microbiology 01/18/19 09:30 Aerobic Blood Culture - Preliminary Blood - Venous NO GROWTH AFTER 3 DAYS Anaerobic Blood Culture - Preliminary NO GROWTH AFTER 3 DAYS 01/18/19 09:25 Aerobic Blood Culture - Preliminary Blood - Venous - Lab Draw NO GROWTH AFTER 3 DAYS Anaerobic Blood Culture - Preliminary NO GROWTH AFTER 3 DAYS 01/18/19 08:32 Urine Culture - Final Urine, Clean Catch Yeast Isolated - Problem List (1) Failure of outpatient treatment SNOMED Code(s): 432565717 ICD Code: Z78.9 - OTHER SPECIFIED HEALTH STATUS Status: Acute Current Visit: Yes (2) Rapidly progressive weakness SNOMED Code(s): 98783402 ICD Code: R53.1 - WEAKNESS Status: Acute Current Visit: Yes (3) UTI (urinary tract infection) SNOMED Code(s): 81418496 ICD Code: N39.0 - URINARY TRACT INFECTION, SITE NOT SPECIFIED Status: Acute Current Visit: Yes Qualifiers: Urinary tract infection type: site unspecified Hematuria presence: with hematuria Qualified Code(s): N39.0 - Urinary tract infection, site not specified; R31.9 - Hematuria, unspecified (4) Generalized weakness SNOMED Code(s): 55712927 ICD Code: R53.1 - WEAKNESS Status: Acute Current Visit: No (5) Palliative care status SNOMED Code(s): 030855333 ICD Code: Z51.5 - ENCOUNTER FOR PALLIATIVE CARE Status: Acute Current Visit: No (6) Acute renal failure SNOMED Code(s): 34969008 ICD Code: N17.9 - ACUTE KIDNEY FAILURE, UNSPECIFIED Status: Acute Current Visit: Yes (7) Constipation SNOMED Code(s): 69334580 ICD Code: K59.00 - CONSTIPATION, UNSPECIFIED Status: Acute Current Visit : Yes Problem List Initiated/Reviewed/Updated: Yes Orders Last 24hrs: Active Orders 24 hr Category Date Time Status CXR [Chest 2V] [CR] Routine Exams 01/20/19 08:55 Taken Bisacodyl [Dulcolax] Med 01/21/19 09:34 Ordered 10 mg RECTAL DAILY PRN Polyethylene Glycol 3350 [MiraLAX] Med 01/21/19 09:45 Ordered 17 gm PO DAILY Medication Orders Acetaminophen (Tylenol) 650 mg PO Q4H PRN PRN Reason: Pain (Mild 1-3)/fever Last Admin: 01/19/19 11:03 Dose: 650 mg Admin: 01/19/19 02:11 Dose: 650 mg Al Hydroxide/Mg Hydroxide (Mag-Al Susp) 30 ml PO Q2H PRN PRN Reason: Indigestion Last Admin: 01/19/19 13:46 Dose: 30 ml Artificial Tears (Refresh Tears 0.5%) 0 ml EYEBOTH QID PRN PRN Reason: Dry Eyes Last Admin: 01/20/19 16:11 Dose: 1 drop Bisacodyl (Dulcolax) 10 mg RECTAL DAILY PRN PRN Reason: Constipation Ceftriaxone Sodium (Rocephin) 1 gm IVPUSH Q24H [facility] Last Admin: 01/20/19 16:16 Dose: 1 gm Admin: 01/19/19 15:30 Dose: 1 gm Admin: 01/18/19 16:02 Dose: 1 gm Docusate Sodium (Colace) 100 mg PO BID PRN PRN Reason: Constipation Enoxaparin Sodium (Lovenox) 40 mg SUBCUT Q24H [facility] Last Admin: 01/20/19 10:06 Dose: 40 mg Admin: 01/19/19 08:47 Dose: 40 mg Lisinopril/HCTZ (Lisinopril/Hctz 10-12.5 Mg) 0.5 tab PO BEDTIME PRN PRN Reason: Hypertension Fluconazole/Sodium Chloride (200 mg/ Premix) 100 mls @ 100 mls/hr IV Q24H [facility] Last Admin: 01/20/19 16:29 Dose: 100 mls/hr Infusion: 01/19/19 16:47 Dose: 100 mls/hr Admin: 01/19/19 15:47 Dose: 100 mls/hr Infusion: 01/18/19 17:08 Dose: 100 mls/hr Admin: 01/18/19 16:08 Dose: 100 mls/hr Sodium Chloride (Normal Saline) 1,000 mls @ 50 mls/hr IV ASDIRECTED [facility] Last Admin: 01/18/19 20:56 Dose: 50 mls/hr Ondansetron HCl (Zofran) 4 mg IV Q6H PRN PRN Reason: Nausea/Vomiting Oxybutynin Chloride (Oxybutynin Er) 5 mg PO DAILY [facility] Last Admin: 01/20/19 09:09 Dose: 5 mg Admin: 01/19/19 08:47 Dose: 5 mg Polyethylene Glycol (Miralax) 17 gm PO DAILY [facility] Sodium Chloride (Saline Flush) 10 ml FLUSH ASDIRECTED PRN PRN Reason: Keep Vein Open Last Admin: 01/20/19 17:41 Dose: 10 ml Admin: 01/20/19 16:24 Dose: 10 ml Admin: 01/20/19 10:45 Dose: 10 ml Admin: 01/19/19 16:54 Dose: 10 ml Admin: 01/18/19 17:16 Dose: 10 ml Admin: 01/18/19 16:02 Dose: 10 ml Zolpidem Tartrate (Ambien) 10 mg PO BEDTIME [facility] Last Admin: 01/20/19 20:17 Dose: 10 mg Admin: 01/19/19 20:21 Dose: 10 mg Admin: 01/18/19 21:46 Dose: 10 mg Assessment/Plan Comment:: 1. Admit for antibiotics and antifungals per 2.cardiac diet 3. Up with us in 4. PT/OT 5. Lovenox 6. Full code
[2019-01-21] MEDS: Enoxaparin 40 MG/0.4 ML Syringe SUBCUT SCH (09:59)
[2019-01-21] MEDS: Oxybutynin 5 MG Tab.ER PO SCH (09:59)
[2019-01-21] MEDS: Polyethylene Glycol 3350 Powder 17 GM Packet PO SCH (09:59)
[2019-01-21] MEDS: cefTRIAXone 1 GM Vial IVPUSH SCH (15:39)
[2019-01-21] MEDS: Fluconazole/Normal Saline 200 MG in Premix Bag 1 BAG IV SCH (15:50)
[2019-01-21] MEDS: Sodium Chloride 0.9% 10 ML Syringe FLUSH PRN (16:49)
[2019-01-21] MEDS: Zolpidem 10 MG Tab PO SCH (20:11)
[2019-01-21] MEDS: Docusate Sodium 100 MG Cap PO PRN (20:12)
[2019-01-22] MEDS: Hydrochlorothiazide/Lisinopril 12.5-10 MG Tab PO PRN (01:32)
[2019-01-22] MEDS: Acetaminophen 325 MG Tab PO PRN (07:57)
[2019-01-22] MEDS: Oxybutynin 5 MG Tab.ER PO SCH (08:01)
[2019-01-22] MEDS: Polyethylene Glycol 3350 Powder 17 GM Packet PO SCH (08:01)
[2019-01-22] MEDS: Enoxaparin 40 MG/0.4 ML Syringe SUBCUT SCH (08:02)
--- NOTE | 2019-01-22 09:26 | PCM.PN ---
- General Info Date of Service: 01/22/19 Admission Dx/Problem (Free Text): Patient states he feels weak. He slept better last night. He denies any hematuria, dysuria, abdominal pain, fevers or chills. - Patient Data Vitals - Most Recent: Last Vital Signs Temp 97.6 F 01/22/19 01:35 Pulse 85 01/22/19 01:35 Resp 17 01/22/19 01:35 BP 182/82 H 01/22/19 01:35 Pulse Ox 98 01/22/19 04:00 Weight - Most Recent: 212 lb 1.6 oz Edil Results Last 24 Hours: Microbiology 01/18/19 09:30 Aerobic Blood Culture - Preliminary Blood - Venous NO GROWTH AFTER 3 DAYS Anaerobic Blood Culture - Preliminary NO GROWTH AFTER 3 DAYS 01/18/19 09:25 Aerobic Blood Culture - Preliminary Blood - Venous - Lab Draw NO GROWTH AFTER 3 DAYS Anaerobic Blood Culture - Preliminary NO GROWTH AFTER 3 DAYS Med Orders - Current: Current Medications Acetaminophen (Tylenol) 650 mg PO Q4H PRN PRN Reason: Pain (Mild 1-3)/fever Last Admin: 01/22/19 07:57 Dose: 650 mg Al Hydroxide/Mg Hydroxide (Mag-Al Susp) 30 ml PO Q2H PRN PRN Reason: Indigestion Last Admin: 01/19/19 13:46 Dose: 30 ml Artificial Tears (Refresh Tears 0.5%) 0 ml EYEBOTH QID PRN PRN Reason: Dry Eyes Last Admin: 01/20/19 16:11 Dose: 1 drop Bisacodyl (Dulcolax) 10 mg RECTAL DAILY PRN PRN Reason: Constipation Last Admin: 01/22/19 05:10 Dose: 10 mg Ceftriaxone Sodium (Rocephin) 1 gm IVPUSH Q24H [facility] Last Admin: 01/21/19 15:39 Dose: 1 gm Docusate Sodium (Colace) 100 mg PO BID PRN PRN Reason: Constipation Last Admin: 01/21/19 20:12 Dose: 100 mg Enoxaparin Sodium (Lovenox) 40 mg SUBCUT Q24H [facility] Last Admin: 01/22/19 08:02 Dose: 40 mg Lisinopril/HCTZ (Lisinopril/Hctz 10-12.5 Mg) 0.5 tab PO BEDTIME PRN PRN Reason: Hypertension Last Admin: 01/22/19 01:32 Dose: 0.5 tab Fluconazole/Sodium Chloride (200 mg/ Premix) 100 mls @ 100 mls/hr IV Q24H [facility] Last Admin: 01/21/19 15:50 Dose: 100 mls/hr Sodium Chloride (Normal Saline) 1,000 mls @ 50 mls/hr IV ASDIRECTED [facility] Last Admin: 01/18/19 20:56 Dose: 50 mls/hr Ondansetron HCl (Zofran) 4 mg IV Q6H PRN PRN Reason: Nausea/Vomiting Oxybutynin Chloride (Oxybutynin Er) 5 mg PO DAILY [facility] Last Admin: 01/22/19 08:01 Dose: 5 mg Polyethylene Glycol (Miralax) 17 gm PO DAILY [facility] Last Admin: 01/22/19 08:01 Dose: 17 gm Sodium Chloride (Saline Flush) 10 ml FLUSH ASDIRECTED PRN PRN Reason: Keep Vein Open Last Admin: 01/21/19 16:49 Dose: 10 ml Zolpidem Tartrate (Ambien) 10 mg PO BEDTIME [facility] Last Admin: 01/21/19 20:11 Dose: 10 mg Discontinued Medications Artificial Tears (Refresh Celluvisc) 0 each EYEBOTH ASDIRECTED PRN PRN Reason: Dry Eyes Artificial Tears (Refresh Celluvisc) 0 each EYEBOTH QID PRN PRN Reason: Dry Eyes Artificial Tears (Refresh Tears 0.5%) Confirm Administered Dose 15 ml .ROUTE .STK-MED ONE Stop: 01/19/19 16:31 Last Admin: 01/19/19 16:49 Dose: 1 drop Sodium Chloride (Normal Saline) 1,000 mls @ 125 mls/hr IV ASDIRECTED [facility] Tamsulosin HCl (Flomax) 0.4 mg PO DAILY [facility] - Exam General: Alert, Oriented, Severe Distress Lungs: Clear to Auscultation, Rub Cardiovascular: Regular Rate, Regular Rhythm, No Murmurs - Problem List & Annotations (1) Failure of outpatient treatment SNOMED Code(s): 881294426 Code(s): Z78.9 - OTHER SPECIFIED HEALTH STATUS Status: Acute Current Visit: Yes (2) Rapidly progressive weakness SNOMED Code(s): 79400338 Code(s): R53.1 - WEAKNESS Status: Acute Current Visit: Yes (3) UTI (urinary tract infection) SNOMED Code(s): 41574165 Code(s): N39.0 - URINARY TRACT INFECTION, SITE NOT SPECIFIED Status: Acute Current Visit: Yes Qualifiers: Urinary tract infection type: site unspecified Hematuria presence: with hematuria Qualified Code(s): N39.0 - Urinary tract infection, site not specified; R31.9 - Hematuria, unspecified (4) Generalized weakness SNOMED Code(s): 86913442 Code(s): R53.1 - WEAKNESS Status: Acute Current Visit: No (5) Palliative care status SNOMED Code(s): 406598939 Code(s): Z51.5 - ENCOUNTER FOR PALLIATIVE CARE Status: Acute Current Visit: No (6) Acute renal failure SNOMED Code(s): 54694142 Code(s): N17.9 - ACUTE KIDNEY FAILURE, UNSPECIFIED Status: Acute Current Visit: Yes (7) Constipation SNOMED Code(s): 75772762 Code(s): K59.00 - CONSTIPATION, UNSPECIFIED Status: Acute Current Visit: Yes - Problem List Review Problem List Initiated/Reviewed/Updated: Yes - My Orders Last 24 Hours: My Active Orders 01/21/19 09:34 Bisacodyl [Dulcolax] 10 mg RECTAL DAILY PRN 01/21/19 09:45 Polyethylene Glycol 3350 [MiraLAX] 17 gm PO DAILY - Plan Plan:: 1. Discussed his care with urology. He is getting his stent out in 2 days from now. They agreed with continuing antibiotics and antifungals until his stent is out and that should take care of it. 2. Social service to see regarding placement for swing bed versus snf in the a.m.
[2019-01-22] MEDS: Carboxymethylcellulose Sodium 0.5% Ophth Soln 15 ML Bottle EYEBOTH PRN (11:36)
[2019-01-22] MEDS: Sodium Chloride 0.9% 10 ML Syringe FLUSH PRN ×2 (16:06→17:21)
[2019-01-22] MEDS: cefTRIAXone 1 GM Vial IVPUSH SCH (16:07)
[2019-01-22] MEDS: Fluconazole/Normal Saline 200 MG in Premix Bag 1 BAG IV SCH (16:16)
[2019-01-22] MEDS: Zolpidem 10 MG Tab PO SCH (20:30)
[2019-01-22] MEDS: Docusate Sodium 100 MG Cap PO PRN (20:31)
[2019-01-23] MEDS: Hydrochlorothiazide/Lisinopril 12.5-10 MG Tab PO PRN (00:28)
[2019-01-23] MEDS: Oxybutynin 5 MG Tab.ER PO SCH (08:36)
[2019-01-23] MEDS ORDERED: Sodium Chloride 0.9% 10 ML Syringe FLUSH PRN (09:28)
--- NOTE | 2019-01-23 09:32 | PCM.PN ---
- General Info Date of Service: 01/23/19 Admission Dx/Problem (Free Text): Patient states he still weak. He denies any dysuria or urinary frequency, hematuria. Denies back pain or fevers. After my interview the patient had inserted in the bathroom where he was lightheaded, stared and check for little bit. Afterwards he was normal. Does not remember the incident. He had no postictal state. This is the kind of thing that happened home. This is the first time it happened here. - Patient Data Vitals - Most Recent: Last Vital Signs Temp 98.1 F 01/23/19 00:00 Pulse 79 01/23/19 00:00 Resp 17 01/23/19 00:00 BP 173/83 H 01/23/19 00:28 Pulse Ox 98 01/23/19 04:00 Weight - Most Recent: 212 lb 1.6 oz I&O - Last 24 Hours: Intake & Output 01/22/19 01/23/19 01/23/19 22:59 06:59 14:59 Intake Total 100 Balance 100 Edil Results Last 24 Hours: Microbiology 01/18/19 09:30 Aerobic Blood Culture - Preliminary Blood - Venous NO GROWTH AFTER 4 DAYS Anaerobic Blood Culture - Preliminary NO GROWTH AFTER 4 DAYS 01/18/19 09:25 Aerobic Blood Culture - Preliminary Blood - Venous - Lab Draw NO GROWTH AFTER 4 DAYS Anaerobic Blood Culture - Preliminary NO GROWTH AFTER 4 DAYS Med Orders - Current: Current Medications Acetaminophen (Tylenol) 650 mg PO Q4H PRN PRN Reason: Pain (Mild 1-3)/fever Last Admin: 01/22/19 07:57 Dose: 650 mg Al Hydroxide/Mg Hydroxide (Mag-Al Susp) 30 ml PO Q2H PRN PRN Reason: Indigestion Last Admin: 01/19/19 13:46 Dose: 30 ml Artificial Tears (Refresh Tears 0.5%) 0 ml EYEBOTH QID PRN PRN Reason: Dry Eyes Last Admin: 01/22/19 11:36 Dose: 1 drop Bisacodyl (Dulcolax) 10 mg RECTAL DAILY PRN PRN Reason: Constipation Last Admin: 01/22/19 05:10 Dose: 10 mg Docusate Sodium (Colace) 100 mg PO BID PRN PRN Reason: Constipation Last Admin: 01/22/19 20:31 Dose: 100 mg Enoxaparin Sodium (Lovenox) 40 mg SUBCUT Q24H [facility] Last Admin: 01/22/19 08:02 Dose: 40 mg Lisinopril/HCTZ (Lisinopril/Hctz 10-12.5 Mg) 0.5 tab PO BEDTIME PRN PRN Reason: Hypertension Last Admin: 01/23/19 00:28 Dose: 0.5 tab Oxybutynin Chloride (Oxybutynin Er) 5 mg PO DAILY [facility] Last Admin: 01/23/19 08:36 Dose: 5 mg Polyethylene Glycol (Miralax) 17 gm PO DAILY [facility] Last Admin: 01/22/19 08:01 Dose: 17 gm Sodium Chloride (Saline Flush) 10 ml FLUSH ASDIRECTED PRN PRN Reason: Keep Vein Open Last Admin: 01/22/19 17:21 Dose: 10 ml Zolpidem Tartrate (Ambien) 10 mg PO BEDTIME [facility] Last Admin: 01/22/19 20:30 Dose: 10 mg Discontinued Medications Artificial Tears (Refresh Celluvisc) 0 each EYEBOTH ASDIRECTED PRN PRN Reason: Dry Eyes Artificial Tears (Refresh Celluvisc) 0 each EYEBOTH QID PRN PRN Reason: Dry Eyes Artificial Tears (Refresh Tears 0.5%) Confirm Administered Dose 15 ml .ROUTE .RUST-MED ONE Stop: 01/19/19 16:31 Last Admin: 01/19/19 16:49 Dose: 1 drop Ceftriaxone Sodium (Rocephin) 1 gm IVPUSH Q24H [facility] Last Admin: 01/22/19 16:07 Dose: 1 gm Sodium Chloride (Normal Saline) 1,000 mls @ 125 mls/hr IV ASDIRECTED [facility] Fluconazole/Sodium Chloride (200 mg/ Premix) 100 mls @ 100 mls/hr IV Q24H [facility] Last Admin: 01/22/19 16:16 Dose: 100 mls/hr Sodium Chloride (Normal Saline) 1,000 mls @ 50 mls/hr IV ASDIRECTED [facility] Last Admin: 01/18/19 20:56 Dose: 50 mls/hr Ondansetron HCl (Zofran) 4 mg IV Q6H PRN PRN Reason: Nausea/Vomiting Tamsulosin HCl (Flomax) 0.4 mg PO DAILY [facility] - Exam General: Alert, Oriented, Cooperative Lungs: Normal Respiratory Effort GI/Abdominal Exam: Soft, Non-Tender, No Distention Back Exam: No: CVA Tenderness (R), CVA Tenderness (L) - Problem List & Annotations (1) Failure of outpatient treatment SNOMED Code(s): 493482375 Code(s): Z78.9 - OTHER SPECIFIED HEALTH STATUS Status: Acute Current Visit: Yes (2) Rapidly progressive weakness SNOMED Code(s): 31350033 Code(s): R53.1 - WEAKNESS Status: Acute Current Visit: Yes (3) UTI (urinary tract infection) SNOMED Code(s): 43093914 Code(s): N39.0 - URINARY TRACT INFECTION, SITE NOT SPECIFIED Status: Acute Current Visit: Yes Qualifiers: Urinary tract infection type: site unspecified Hematuria presence: with hematuria Qualified Code(s): N39.0 - Urinary tract infection, site not specified; R31.9 - Hematuria, unspecified (4) Generalized weakness SNOMED Code(s): 44196988 Code(s): R53.1 - WEAKNESS Status: Acute Current Visit: No (5) Palliative care status SNOMED Code(s): 936308913 Code(s): Z51.5 - ENCOUNTER FOR PALLIATIVE CARE Status: Acute Current Visit: No (6) Acute renal failure SNOMED Code(s): 96572181 Code(s): N17.9 - ACUTE KIDNEY FAILURE, UNSPECIFIED Status: Acute Current Visit: Yes (7) Constipation SNOMED Code(s): 48895636 Code(s): K59.00 - CONSTIPATION, UNSPECIFIED Status: Acute Current Visit: Yes (8) Near syncope SNOMED Code(s): 280663146 Code(s): R55 - SYNCOPE AND COLLAPSE Status: Acute Current Visit: Yes - Problem List Review Problem List Initiated/Reviewed/Updated: Yes - My Orders Last 24 Hours: My Active Orders 01/23/19 09:27 Head wo Cont [CT] Routine 01/23/19 09:28 Sodium Chloride 0.9% [Saline Flush] 10 ml FLUSH ASDIRECTED PRN Saline Lock Insert [OM.PC] Routine 01/23/19 09:30 Ciprofloxacin [Ciprofloxacin HCl] 500 mg PO BID Fluconazole [Diflucan] 150 mg PO DAILY - Assessment Assessment:: 1. DC IV antibiotics and antifungals and start Cipro and Diflucan. 2. Patient had a near syncopal episode. Will proceed with a CT scan of the head today. 3. Social service to see the patient to determine discharge placement - Plan Plan:: 1. Discussed his care with urology. He is getting his stent out in 2 days from now. They agreed with continuing antibiotics and antifungals until his stent is out and that should take care of it. 2. Social service to see regarding placement for swing bed versus [facility] in the a.m.
[2019-01-23] MEDS: Enoxaparin 40 MG/0.4 ML Syringe SUBCUT SCH (09:56)
[2019-01-23] MEDS: Ciprofloxacin 500 MG Tab PO SCH ×2 (10:19→20:56)
[2019-01-23] MEDS: Polyethylene Glycol 3350 Powder 17 GM Packet PO SCH (10:19)
--- NOTE | 2019-01-23 14:38 | CT ---
INDICATION: Near syncope, weakness. CT HEAD WITHOUT CONTRAST: Spiral 3.75 mm axial sections were obtained through the brain without contrast, 01/23/19, and compared with 02/13/08. Total exam DLP = 1,554.24 mGy-cm. A retention cyst is noted at the base posteriorly of the right maxillary antrum. Paranasal sinuses were otherwise well-aerated. Mastoid air cells are well-aerated. Degenerative changes are noted at the temporomandibular joints. Degenerative changes are noted at the atlantoodontoid joint. No cranial abnormality was identified. The orbits appear to be fairly intact. Internal carotid artery calcifications are noted. No significant shift of midline structures was noted. There does appear to be increased prominence of the ventricles, compatible with progressive central atrophy, compared with the previous study. Cortical sulci are slightly more prominent than on the previous study in general, compatible with a minimal degree of progressive cortical atrophy. No bleeding site, hematoma, or other abnormal area of density was identified. IMPRESSION: 1. No acute intracranial abnormality. 2. 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 MTDD
[2019-01-23] MEDS ORDERED: Fluconazole 100 MG Tab PO SCH (16:00)
[2019-01-23] MEDS ORDERED: Mirtazapine 15 MG Tab PO SCH (21:00)
[2019-01-23] MEDS ORDERED: Hydrochlorothiazide/Lisinopril 12.5-10 MG Tab PO SCH (21:00)
[2019-01-24 08:12] VITALS: BP 107/67; PULSE 77
[2019-01-24] MEDS: Ciprofloxacin 500 MG Tab PO SCH (08:25)
[2019-01-24] MEDS: Polyethylene Glycol 3350 Powder 17 GM Packet PO SCH (08:26)
[2019-01-24] MEDS: Oxybutynin 5 MG Tab.ER PO SCH (08:26)
[2019-01-24] MEDS: Carboxymethylcellulose Sodium 0.5% Ophth Soln 15 ML Bottle EYEBOTH PRN (08:26)
[2019-01-24] MEDS ORDERED: Enoxaparin 40 MG/0.4 ML Syringe SUBCUT SCH (09:00)
--- NOTE | 2019-01-24 09:50 | PCM.PN ---
- General Info Date of Service: 01/24/19 Admission Dx/Problem (Free Text): Patient states he still weak. He denies dysuria, pyuria, hematuria. He's had no near-syncope episodes since yesterday. - Patient Data Vitals - Most Recent: Last Vital Signs Temp 98.1 F 01/24/19 07:25 Pulse 77 01/24/19 07:25 Resp 20 01/24/19 07:25 BP 107/67 01/24/19 07:25 Pulse Ox 97 01/24/19 07:25 Weight - Most Recent: 212 lb 1.6 oz Lab Results Last 24 Hours: Laboratory Results - last 24 hr 01/23/19 Range/Units 09:17 POC Glucose 143 H (80-116) mg/dL Edil Results Last 24 Hours: Microbiology 01/18/19 09:25 Aerobic Blood Culture - Final Blood - Venous - Lab Draw NO GROWTH AFTER 5 DAYS Anaerobic Blood Culture - Final NO GROWTH AFTER 5 DAYS 01/18/19 09:30 Aerobic Blood Culture - Final Blood - Venous NO GROWTH AFTER 5 DAYS Anaerobic Blood Culture - Final NO GROWTH AFTER 5 DAYS Med Orders - Current: Current Medications Acetaminophen (Tylenol) 650 mg PO Q4H PRN PRN Reason: Pain (Mild 1-3)/fever Last Admin: 01/22/19 07:57 Dose: 650 mg Al Hydroxide/Mg Hydroxide (Mag-Al Susp) 30 ml PO Q2H PRN PRN Reason: Indigestion Last Admin: 01/19/19 13:46 Dose: 30 ml Artificial Tears (Refresh Tears 0.5%) 0 ml EYEBOTH QID PRN PRN Reason: Dry Eyes Last Admin: 01/24/19 08:26 Dose: 1 drop Bisacodyl (Dulcolax) 10 mg RECTAL DAILY PRN PRN Reason: Constipation Last Admin: 01/22/19 05:10 Dose: 10 mg Ciprofloxacin (Ciprofloxacin Hcl) 500 mg PO BID [facility] Last Admin: 01/24/19 08:25 Dose: 500 mg Docusate Sodium (Colace) 100 mg PO BID PRN PRN Reason: Constipation Last Admin: 01/22/19 20:31 Dose: 100 mg Enoxaparin Sodium (Lovenox) 40 mg SUBCUT Q24H [facility] Last Admin: 01/24/19 08:25 Dose: 40 mg Fluconazole (Diflucan) 200 mg PO DAILY@1600 [facility] Last Admin: 01/23/19 16:43 Dose: 200 mg Lisinopril/HCTZ (Lisinopril/Hctz 10-12.5 Mg) 0.5 tab PO BEDTIME [facility] Last Admin: 01/23/19 20:57 Dose: 0.5 tab Mirtazapine (Remeron) 7.5 mg PO BEDTIME [facility] Last Admin: 01/23/19 20:56 Dose: 7.5 mg Oxybutynin Chloride (Oxybutynin Er) 5 mg PO DAILY [facility] Last Admin: 01/24/19 08:26 Dose: 5 mg Polyethylene Glycol (Miralax) 17 gm PO DAILY [facility] Last Admin: 01/24/19 08:26 Dose: 17 gm Sodium Chloride (Saline Flush) 10 ml FLUSH ASDIRECTED PRN PRN Reason: Keep Vein Open Last Admin: 01/22/19 17:21 Dose: 10 ml Sodium Chloride (Saline Flush) 10 ml FLUSH ASDIRECTED PRN PRN Reason: Keep Vein Open Discontinued Medications Artificial Tears (Refresh Celluvisc) 0 each EYEBOTH ASDIRECTED PRN PRN Reason: Dry Eyes Artificial Tears (Refresh Celluvisc) 0 each EYEBOTH QID PRN PRN Reason: Dry Eyes Artificial Tears (Refresh Tears 0.5%) Confirm Administered Dose 15 ml .ROUTE .[facility]-MED ONE Stop: 01/19/19 16:31 Last Admin: 01/19/19 16:49 Dose: 1 drop Ceftriaxone Sodium (Rocephin) 1 gm IVPUSH Q24H [facility] Last Admin: 01/22/19 16:07 Dose: 1 gm Enoxaparin Sodium (Lovenox) 40 mg SUBCUT Q24H [facility] Last Admin: 01/23/19 09:56 Dose: 40 mg Lisinopril/HCTZ (Lisinopril/Hctz 10-12.5 Mg) 0.5 tab PO BEDTIME PRN PRN Reason: Hypertension Last Admin: 01/23/19 00:28 Dose: 0.5 tab Sodium Chloride (Normal Saline) 1,000 mls @ 125 mls/hr IV ASDIRECTED [facility] Fluconazole/Sodium Chloride (200 mg/ Premix) 100 mls @ 100 mls/hr IV Q24H [facility] Last Admin: 01/22/19 16:16 Dose: 100 mls/hr Sodium Chloride (Normal Saline) 1,000 mls @ 50 mls/hr IV ASDIRECTED [facility] Last Admin: 01/18/19 20:56 Dose: 50 mls/hr Ondansetron HCl (Zofran) 4 mg IV Q6H PRN PRN Reason: Nausea/Vomiting Tamsulosin HCl (Flomax) 0.4 mg PO DAILY [facility] Zolpidem Tartrate (Ambien) 10 mg PO BEDTIME [facility] Last Admin: 01/22/19 20:30 Dose: 10 mg - Exam General: Alert, Oriented, Cooperative Lungs: Clear to Auscultation, Normal Respiratory Effort Cardiovascular: Regular Rate, Regular Rhythm, No Murmurs - Problem List & Annotations (1) Failure of outpatient treatment SNOMED Code(s): 195132670 Code(s): Z78.9 - OTHER SPECIFIED HEALTH STATUS Status: Acute Current Visit: Yes (2) Rapidly progressive weakness SNOMED Code(s): 23655897 Code(s): R53.1 - WEAKNESS Status: Acute Current Visit: Yes (3) UTI (urinary tract infection) SNOMED Code(s): 24113927 Code(s): N39.0 - URINARY TRACT INFECTION, SITE NOT SPECIFIED Status: Acute Current Visit: Yes Qualifiers: Urinary tract infection type: site unspecified Hematuria presence: with hematuria Qualified Code(s): N39.0 - Urinary tract infection, site not specified; R31.9 - Hematuria, unspecified (4) Generalized weakness SNOMED Code(s): 03438747 Code(s): R53.1 - WEAKNESS Status: Acute Current Visit: No (5) Palliative care status SNOMED Code(s): 613825334 Code(s): Z51.5 - ENCOUNTER FOR PALLIATIVE CARE Status: Acute Current Visit: No (6) Acute renal failure SNOMED Code(s): 33610321 Code(s): N17.9 - ACUTE KIDNEY FAILURE, UNSPECIFIED Status: Acute Current Visit: Yes (7) Constipation SNOMED Code(s): 41586095 Code(s): K59.00 - CONSTIPATION, UNSPECIFIED Status: Acute Current Visit: Yes (8) Near syncope SNOMED Code(s): 166482429 Code(s): R55 - SYNCOPE AND COLLAPSE Status: Acute Current Visit: Yes - Problem List Review Problem List Initiated/Reviewed/Updated: No - My Orders Last 24 Hours: My Active Orders 01/23/19 09:28 Sodium Chloride 0.9% [Saline Flush] 10 ml FLUSH ASDIRECTED PRN Saline Lock Insert [OM.PC] Routine 01/23/19 09:30 Ciprofloxacin [Ciprofloxacin HCl] 500 mg PO BID 01/23/19 16:00 Fluconazole [Diflucan] 200 mg PO DAILY@1600 01/23/19 21:00 Hydrochlorothiazide/Lisinopril [Lisinopril/HCTZ 10-12.5 MG] 0.5 tab PO BEDTIME Mirtazapine [Remeron] 7.5 mg PO BEDTIME 01/24/19 08:22 Ready for Discharge [RC] PER UNIT ROUTINE 01/24/19 09:00 Enoxaparin [Lovenox] 40 mg SUBCUT Q24H - Assessment Assessment:: 1. DC IV antibiotics and antifungals and start Cipro and Diflucan. 2. Patient had a near syncopal episode. Will proceed with a CT scan of the head today. 3. Social service to see the patient to determine discharge placement - Plan Plan:: 1. Discharge to [facility]. 2. Patient has appointment with urology at our clinic and I'll discuss his care with the DrIgnacio Today.
--- NOTE | 2019-01-24 09:53 | PCM.DCSUM1 ---
Discharge Summary - Hospital Course Free Text/Narrative:: Hospital course-patient was placed on Rocephin and IV antifungals. His urine culture grew out east. His hematuria stopped basilar dysuria and was wake up a lot to go the bathroom. He felt weak the whole time he was here. After few days repeat his urine and again there was east.. I did talk to urology who recommended continued the antibiotics and antifungal still he sees his urologist which would be today. He currently has a stent in secondary to lithotripsy from a renal stone. Patient fell week total time is here. He had PT/ OT see him and they walked him. Family wanted to take him to [facility] and then him his decided the last minute they by 1 stay here. After family discussion they want to go back to [facility]. Day before discharge he had what appeared to be of near syncopal episode after he got off the toilet. We had a CT scan that showed age-related changes. He will see the urologist today. I stopped his antibiotic some antifungals. I will discuss with urologist and let him decide what he wants treated with. Hopefully when he gets stent out his urine will clear up. He'll see PT/OT at the [facility] living. Brief History: this 83-year-old male patient that was brought into the ER because of a fall. He was recently admitted for hematuria and UTIs sent home. He grew yeast. He's been very weak ever since he had a ureter stent after lithotripsy and kidney stones. He's had a little blood in his urine and that's improved but he has some dysuria. No buttock pain at this time but very weak. Denies fevers, chills or nausea. Diagnosis: Stroke: No - Discharge Data Discharge Date: 01/24/19 Discharge Disposition: DC/Tfer to [facility] [place] [id number] Condition: Fair - Discharge Diagnosis/Problem(s) (1) Failure of outpatient treatment SNOMED Code(s): 735595739 ICD Code: Z78.9 - OTHER SPECIFIED HEALTH STATUS Status: Acute Current Visit: Yes (2) Rapidly progressive weakness SNOMED Code(s): 14796925 ICD Code: R53.1 - WEAKNESS Status: Acute Current Visit: Yes (3) UTI (urinary tract infection) SNOMED Code(s): 59982726 ICD Code: N39.0 - URINARY TRACT INFECTION, SITE NOT SPECIFIED Status: Acute Current Visit: Yes Qualifiers: Urinary tract infection type: site unspecified Hematuria presence: with hematuria Qualified Code(s): N39.0 - Urinary tract infection, site not specified; R31.9 - Hematuria, unspecified (4) Generalized weakness SNOMED Code(s): 40515097 ICD Code: R53.1 - WEAKNESS Status: Acute Current Visit: No (5) Palliative care status SNOMED Code(s): 158675599 ICD Code: Z51.5 - ENCOUNTER FOR PALLIATIVE CARE Status: Acute Current Visit: No (6) Acute renal failure SNOMED Code(s): 04110353 ICD Code: N17.9 - ACUTE KIDNEY FAILURE, UNSPECIFIED Status: Acute Current Visit: Yes (7) Constipation SNOMED Code(s): 60745010 ICD Code: K59.00 - CONSTIPATION, UNSPECIFIED Status: Acute Current Visit : Yes (8) Near syncope SNOMED Code(s): 193362276 ICD Code: R55 - SYNCOPE AND COLLAPSE Status: Acute Current Visit: Yes - Patient Summary/Data Consults: Consultations 01/19/19 08:03 Consult to Occupational Therapy [OT Evaluation and Treatment] [CONS] Routine Please Evaluate and Treat. OT Reason for Consult: Strengthening This query below is only for informational purposes and is not editable. Admission Diagnosis/Problem: Urinary tract infection with hematuria Consult to Physical Therapy [PT Evaluation and Treatment] [CONS] Routine Please Evaluate and Treat. PT Reason for Consult: Strengthening This query below is only for informational purposes and is not editable. Admission Diagnosis/Problem: Urinary tract infection with hematuria - Patient Instructions Diet: Regular Diet as Tolerated Activity: As Tolerated Driving: Do Not Drive Showering/Bathing: May Shower Other/Special Instructions: 1. Appointment today at [facility] for urology today it to 2.10 PM. 2. PT/OT. 3. Recheck with Imani and 7-10 days - Discharge Plan Prescriptions/Med Rec: Mirtazapine [Remeron] 7.5 mg PO BEDTIME #45 tablet Home Medications: Home Meds Lisinopril/Hydrochlorothiazide [Lisinopril-Hctz 10-12.5 mg Tab] 0.5 tab PO BEDTIME PRN 01/11/19 [History] Oxybutynin [Oxybutynin ER] 5 mg PO DAILY #30 tab.er 01/12/19 [Rx] Tamsulosin [Flomax] 0.4 mg PO DAILY #30 cap.er 01/12/19 [Rx] Ranitidine HCl [Ranitidine] 150 mg PO BID 01/18/19 [History] Mirtazapine [Remeron] 7.5 mg PO BEDTIME #45 tablet 01/24/19 [Rx] Patient Handouts: Urinary Tract Infection, Adult, [id number], Fall Prevention in Hospitals, Adult, Venous Thromboembolism Prevention Forms: ED Department Discharge Referrals: Bowen Diallo MD [Primary Care Provider] - - Discharge Summary/Plan Comment DC Time >30 min.: No - Patient Data Vitals - Most Recent: Last Vital Signs Temp 98.1 F 01/24/19 07:25 Pulse 77 01/24/19 07:25 Resp 20 01/24/19 07:25 BP 107/67 01/24/19 07:25 Pulse Ox 97 01/24/19 07:25 Weight - Most Recent: 212 lb 1.6 oz Lab Results - Last 24 hrs: Laboratory Results - last 24 hr 01/23/19 Range/Units 09:17 POC Glucose 143 H (80-116) mg/dL RYLEE Results - Last 24 hrs: Microbiology 01/18/19 09:25 Aerobic Blood Culture - Final Blood - Venous - Lab Draw NO GROWTH AFTER 5 DAYS Anaerobic Blood Culture - Final NO GROWTH AFTER 5 DAYS 01/18/19 09:30 Aerobic Blood Culture - Final Blood - Venous NO GROWTH AFTER 5 DAYS Anaerobic Blood Culture - Final NO GROWTH AFTER 5 DAYS Med Orders - Current: Current Medications Acetaminophen (Tylenol) 650 mg PO Q4H PRN PRN Reason: Pain (Mild 1-3)/fever Last Admin: 01/22/19 07:57 Dose: 650 mg Al Hydroxide/Mg Hydroxide (Mag-Al Susp) 30 ml PO Q2H PRN PRN Reason: Indigestion Last Admin: 01/19/19 13:46 Dose: 30 ml Artificial Tears (Refresh Tears 0.5%) 0 ml EYEBOTH QID PRN PRN Reason: Dry Eyes Last Admin: 01/24/19 08:26 Dose: 1 drop Bisacodyl (Dulcolax) 10 mg RECTAL DAILY PRN PRN Reason: Constipation Last Admin: 01/22/19 05:10 Dose: 10 mg Ciprofloxacin (Ciprofloxacin Hcl) 500 mg PO BID [facility] Last Admin: 01/24/19 08:25 Dose: 500 mg Docusate Sodium (Colace) 100 mg PO BID PRN PRN Reason: Constipation Last Admin: 01/22/19 20:31 Dose: 100 mg Enoxaparin Sodium (Lovenox) 40 mg SUBCUT Q24H [facility] Last Admin: 01/24/19 08:25 Dose: 40 mg Fluconazole (Diflucan) 200 mg PO DAILY@1600 [facility] Last Admin: 01/23/19 16:43 Dose: 200 mg Lisinopril/HCTZ (Lisinopril/Hctz 10-12.5 Mg) 0.5 tab PO BEDTIME [facility] Last Admin: 01/23/19 20:57 Dose: 0.5 tab Mirtazapine (Remeron) 7.5 mg PO BEDTIME [facility] Last Admin: 01/23/19 20:56 Dose: 7.5 mg Oxybutynin Chloride (Oxybutynin Er) 5 mg PO DAILY [facility] Last Admin: 01/24/19 08:26 Dose: 5 mg Polyethylene Glycol (Miralax) 17 gm PO DAILY [facility] Last Admin: 01/24/19 08:26 Dose: 17 gm Sodium Chloride (Saline Flush) 10 ml FLUSH ASDIRECTED PRN PRN Reason: Keep Vein Open Last Admin: 01/22/19 17:21 Dose: 10 ml Sodium Chloride (Saline Flush) 10 ml FLUSH ASDIRECTED PRN PRN Reason: Keep Vein Open Discontinued Medications Artificial Tears (Refresh Celluvisc) 0 each EYEBOTH ASDIRECTED PRN PRN Reason: Dry Eyes Artificial Tears (Refresh Celluvisc) 0 each EYEBOTH QID PRN PRN Reason: Dry Eyes Artificial Tears (Refresh Tears 0.5%) Confirm Administered Dose 15 ml .ROUTE .STK-MED ONE Stop: 01/19/19 16:31 Last Admin: 01/19/19 16:49 Dose: 1 drop Ceftriaxone Sodium (Rocephin) 1 gm IVPUSH Q24H [facility] Last Admin: 01/22/19 16:07 Dose: 1 gm Enoxaparin Sodium (Lovenox) 40 mg SUBCUT Q24H [facility] Last Admin: 01/23/19 09:56 Dose: 40 mg Lisinopril/HCTZ (Lisinopril/Hctz 10-12.5 Mg) 0.5 tab PO BEDTIME PRN PRN Reason: Hypertension Last Admin: 01/23/19 00:28 Dose: 0.5 tab Sodium Chloride (Normal Saline) 1,000 mls @ 125 mls/hr IV ASDIRECTED ANJANA Fluconazole/Sodium Chloride (200 mg/ Premix) 100 mls @ 100 mls/hr IV Q24H ANJANA Last Admin: 01/22/19 16:16 Dose: 100 mls/hr Sodium Chloride (Normal Saline) 1,000 mls @ 50 mls/hr IV ASDIRECTED ANJANA Last Admin: 01/18/19 20:56 Dose: 50 mls/hr Ondansetron HCl (Zofran) 4 mg IV Q6H PRN PRN Reason: Nausea/Vomiting Tamsulosin HCl (Flomax) 0.4 mg PO DAILY [facility] Zolpidem Tartrate (Ambien) 10 mg PO BEDTIME [facility] Last Admin: 01/22/19 20:30 Dose: 10 mg
== END 2019-01-24 08:42 | DRG 683 ==
LOC: FB.ED 08:17 → FB.MS 12:28
PROVIDERS: ADMIT Family Medicine; ATTEND Family Medicine
DX: N17.9 Acute kidney failure, unspecified (principal); B37.49 Other urogenital candidiasis; N39.0 Urinary tract infection, site not specified; Z68.41 Body mass index [BMI] 40.0-44.9, adult; E86.0 Dehydration; M25.552 Pain in left hip; R53.1 Weakness; M54.5 Low back pain; I10 Essential (primary) hypertension; K59.09 Other constipation; K21.9 Gastro-esophageal reflux disease without esophagitis; M19.90 Unspecified osteoarthritis, unspecified site; R31.9 Hematuria, unspecified; G89.29 Other chronic pain; R55 Syncope and collapse; E66.9 Obesity, unspecified; W18.30XA Fall on same level, unspecified, initial encounter; Z96.0 Presence of urogenital implants; Z87.442 Personal history of urinary calculi; Z85.46 Personal history of malignant neoplasm of prostate; Z92.3 Personal history of irradiation; Z90.49 Acquired absence of other specified parts of digestive tract; Z88.2 Allergy status to sulfonamides; Z88.8 Allergy status to other drugs, medicaments and biological substances; Z79.899 Other long term (current) drug therapy; Z87.891 Personal history of nicotine dependence; Z51.5 Encounter for palliative care
CPT/HCPCS: 36415; 70450; 71046; 72131; 72192; 74176; 76770; 80048; 80053; 81001; 82550; 82962; 85025; 86140; 87040; 87086; 97161-GP; 97166-GO; 97530-GO; 97535-GO; 99284-25; 99285; A9270-GY; J0696; J1450; J1650; J7030

== ENCOUNTER 2019-08-09 06:42 | Day surgery (SDC) | payer MEDICARE, BC ==
[2019-08-09] MEDS ORDERED: Propofol 200 MG/20 ML SDV IV ONE (06:43)
[2019-08-09] MEDS ORDERED: Lidocaine 2% 5 ML SDV INJECT ONE (06:43)
[2019-08-09] MEDS ORDERED: Sodium Chloride 0.9% 10 ML Syringe FLUSH PRN (06:45)
[2019-08-09] MEDS: Lactated Ringers 1,000 ML IV SCH (07:42)
--- NOTE | 2019-08-09 07:51 | PCM.HP.2 ---
H&P History of Present Illness - General Date of Service: 08/09/19 Admit Problem/Dx: Admission Diagnosis/Problem Admission Diagnosis/Problem Esophagogastroduodenoscopy - History of Present Illness Initial Comments - Free Text/Narative: Pt with a hx of gerd and dysphagia. Has had a persistence of sx. He did stop his PPI on his own. Food occasionally gets stuck. Some regurgitation. - Related Data Allergies/Adverse Reactions: Allergies Allergy/AdvReac Type Severity Reaction Status Date / Time pantoprazole sodium Allergy Rash Verified 08/09/19 07:13 [From Protonix] Sulfa (Sulfonamide Allergy Rash Verified 08/09/19 07:13 Antibiotics) Home Medications: Home Meds Carboxymethylcellulose Sodium [Artificial Tears] 15 ml OP QID PRN 06/22/19 [ History] Ciclopirox [Loprox 0.77% Crm] 1 applic TP BID 06/22/19 [History] Losartan [Cozaar] 25 mg PO DAILY 06/22/19 [History] Mineral Oil, Light/Mineral Oil [Soothe Xp Eye Drops] 1 drop OP QID PRN 06/22/19 [History] Omeprazole Magnesium [Prilosec Otc] 20 mg PO DAILY 06/22/19 [History] Zolpidem Tartrate [Ambien] 10 mg PO BEDTIME PRN 06/22/19 [History] polyethylene glycoL 3350 [MiraLAX] 17 gm PO DAILY PRN 06/22/19 [History] Albuterol [Ventolin 2 MG/5 ML] 0.4 mg PO DAILY PRN 08/08/19 [History] Carboxymethylcellulose Sodium [Refresh Tears 0.5% Ophth Soln] 1 drop OP ASDIRECTED PRN 08/08/19 [History] Past Medical History HEENT History: Reports: Glaucoma, Retinal Detachment Other HEENT History: ASTIGMATISM, 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, MYOPIA OF LEFT EYE, PRESBYOPIA, PSEUDOPHAKIA, CORNEAL ARCUS SINELIS, AND PINGUECULA BOTH EYES Cardiovascular History: Reports: Hypertension Gastrointestinal History: Reports: Chronic Constipation, GERD Genitourinary History: Reports: Prostate Disorder, Renal Calculus Other Genitourinary History: HEMATURIA, PHIMOSIS, ACUTE KIDNEY INJURY, RETAINED URETERAL STENT, LOWER URINARY TRACT INFECTION Musculoskeletal History: Reports: Fracture Other Musculoskeletal History: fx R hand, hx bursitis bilat hips Neurological History: Reports: None Endocrine/Metabolic History: Reports: Obesity/BMI 30+ Oncologic (Cancer) History: Reports: Prostate Other Oncologic History: Has had prostate CA in past, had radiation for same. Dermatologic History: Reports: Other (See Below) Other Dermatologic History: FUNGAL INFECTION OF THE GROIN - Infectious Disease History Infectious Disease History: Reports: Chicken Pox, Shingles - Past Surgical History HEENT Surgical History: Reports: Cataract Surgery, Eye Surgery, Laser Surgery Cardiovascular Surgical History: Reports: None GI Surgical History: Reports: Appendectomy, Cholecystectomy, Colonoscopy, EGD Male Surgical History: Reports: Circumcision, Ureteral Stent Other Male Surgeries/Procedures: CYSTOSCOPY WITH LEFT DOUBLE J STENT PLACEMENT, URETEROSCOPY Neurological Surgical History: Reports: Other (See Below) Other Neurological Surgeries/Procedures: back surgery x 3 Musculoskeletal Surgical History: Reports: None Other Musculoskeletal Surgeries/Procedures:: FRACTURE SURGERY LEFT, SPINE SURGERY X 3 Other Oncologic Surgeries/Procedures: PROSTATE INTERSTITIAL RAD THERAPY Dermatological Surgical History: Reports: None Social & Family History - Family History Family Medical History: Noncontributory - Tobacco Use Smoking Status *Q: Former Smoker Used Tobacco, but Quit: Yes - Caffeine Use Caffeine Use: Reports: Coffee - Recreational Drug Use Recreational Drug Use: No Drug Use in Last 12 Months: No - Living Situation & Occupation Living situation: Reports: (Lives at home with his ) Occupation: Retired H&P Review of Systems - Review of Systems: Review Of Systems: See Below General: Reports: No Symptoms HEENT: Reports: Dysphasia Pulmonary: Reports: No Symptoms Cardiovascular: Reports: No Symptoms Gastrointestinal: Reports: Difficulty Swallowing Genitourinary: Reports: No Symptoms Skin: Reports: No Symptoms Exam - Exam Exam: See Below - Vital Signs Vital Signs: Last Vital Signs Temp 98.2 F 08/09/19 07:31 Pulse 74 08/09/19 07:31 Resp 16 08/09/19 07:31 BP 168/87 H 08/09/19 07:31 Pulse Ox 98 08/09/19 07:31 Weight: 102.854 kg - Exam General: Alert HEENT: PERRLA, Conjunctiva Clear Lungs: Clear to Auscultation, Normal Respiratory Effort Cardiovascular: Regular Rate, Regular Rhythm GI/Abdominal Exam: Normal Bowel Sounds, Soft, Non-Tender Extremities: Normal Inspection Sepsis Event Note - Focused Exam Vital Signs: Vital Signs Temp Pulse Resp BP Pulse Ox 08/09/19 07:31 98.2 F 74 16 168/87 H 98 08/09/19 07:07 99.0 F 16 180/93 H Date Exam was Performed: 08/09/19 Time Exam was Performed: 07:47 *Q Meaningful Use (ADM) - VTE *Q VTE Pharmacological Contraindications *Q: Patient Scheduled Surgery - Problem List (1) Dysphagia SNOMED Code(s): 91135688, 412035516 ICD Code: R13.10 - DYSPHAGIA, UNSPECIFIED Status: Acute Current Visit: Yes Problem List Initiated/Reviewed/Updated: Yes Orders Last 24hrs: Active Orders 24 hr Category Date Time Status Patient Status [ADT] Routine ADT 08/09/19 06:45 Ordered Patient to Empty Bladder [RC] ASDIRECTED Care 08/09/19 06:45 Active Verify Patient Consent Obtain [RC] ASDIRECTED Care 08/09/19 06:45 Active Nothing Per Oral Diet [DIET] Diet 08/08/19 Dinner Ordered Lactated Ringers [Ringers, Lactated] 1,000 ml Med 08/09/19 06:45 Active IV ASDIRECTED Sodium Chloride 0.9% [Saline Flush] Med 08/09/19 06:45 Active 10 ml FLUSH ASDIRECTED PRN Peripheral IV Insertion Adult [OM.PC] Routine Oth 08/09/19 06:45 Ordered Resuscitation Status Routine Resus Stat 08/08/19 10:23 Ordered Medication Orders Lactated Ringer's (Ringers, Lactated) 1,000 mls @ 125 mls/hr IV ASDIRECTED ANJANA Last Admin: 08/09/19 07:42 Dose: 125 mls/hr Sodium Chloride (Saline Flush) 10 ml FLUSH ASDIRECTED PRN PRN Reason: Keep Vein Open Assessment/Plan Comment:: for egd. procedure and risks were explained to the pt. expressed understanding and asks us to proceed.
--- NOTE | 2019-08-09 08:00 | PCM.OPNOTE ---
- General Post-Op/Procedure Note Date of Surgery/Procedure: 08/09/19 Operative Procedure(s): egd Findings: unremarkable exam Pre Op Diagnosis: dysphagia Post-Op Diagnosis: Same Anesthesia Technique: MAC Primary Surgeon: Manuel Valladares Anesthesia Provider: Peg Horan Pathology: none Complications: None Condition: Good Free Text/Narrative:: see dictation
[2019-08-09 10:04] VITALS: BP 201/101; PULSE 73
--- NOTE | 2019-08-17 14:38 | OR ---
DATE OF OPERATION: 08/09/2019 SURGEON: Manuel Valladares MD PROCEDURE PERFORMED: Esophagogastroduodenoscopy. PREOPERATIVE DIAGNOSIS: History of dysphagia. POSTOPERATIVE DIAGNOSIS: History of dysphagia. INDICATIONS FOR PROCEDURE: This is an 83-year-old white male who was referred with the above-mentioned complaints of some difficulty with swallowing. He was offered and accepted an upper endoscopy. DESCRIPTION OF OPERATION: After an excellent IV sedation was administered, bite block was inserted. Flexible endoscope was passed without difficulty down to the patient's esophagus into the stomach. Stomach was insufflated. Scope was passed through the pylorus, second portion of the duodenum and slowly withdrawn. Following findings were noted. The duodenum was unremarkable, stomach was unremarkable, and the esophagus was unremarkable. Stomach was deflated. Scope was removed. The patient tolerated the procedure well. We will continue the workup for this patient's issues. /[id number] /ROBERT
== END 2019-08-09 09:40 | disposition home or self-care (01) ==
LOC: FB.SDS 06:42
PROVIDERS: ATTEND Surgery
DX: K21.9 Gastro-esophageal reflux disease without esophagitis (principal); I10 Essential (primary) hypertension; G43.909 Migraine, unspecified, not intractable, without status migrainosus; E66.9 Obesity, unspecified; Z68.33 Body mass index [BMI] 33.0-33.9, adult; Z87.891 Personal history of nicotine dependence; Z88.2 Allergy status to sulfonamides; Z88.8 Allergy status to other drugs, medicaments and biological substances; Z79.899 Other long term (current) drug therapy
CPT/HCPCS: 00731-QZ; J2001; J2704; J7120

== ENCOUNTER 2021-05-24 12:57 | Emergency (ER) | payer MEDICARE, OTHER ==
[2021-05-24] MEDS ORDERED: Albuterol/Ipratropium 3.0-0.5 MG/3 ML Neb Soln INH ONE (12:58)
[2021-05-24] MEDS ORDERED: Amoxicillin/Clavulanate K 875-125 MG Tab PO ONE (12:58)
--- NOTE | 2021-05-24 15:37 | EDM.PDOC ---
ED HPI GENERAL MEDICAL PROBLEM - General Chief Complaint: General Stated Complaint: SOB Time Seen by Provider: 05/24/21 14:50 Source of Information: Reports: Patient, Family History Limitations: Reports: No Limitations - History of Present Illness INITIAL COMMENTS - FREE TEXT/NARRATIVE: c/o cough, sob, right sided cp pt eating chili 2d ago, aspirated a spoonful, sob x 1d, inc'd sob today pain to R of midsternum x 1d inc'd sob with walking, inc'd pain with deep breath, no radiation h/o pneumonia yearly, never smoked, no prior CV problems here with and son h/o swallowing difficulty per son there 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 that "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 fixed", esophagus has not been dilated pt chokes on milk signed out to Dr Diallo to f/u last and imaging at 3p at change of shift has had COVID vax, not had COVID illness - Related Data Allergies Allergy/AdvReac Type Severity Reaction Status Date / Time pantoprazole sodium Allergy Rash Verified 05/24/21 14:43 [From Protonix] Sulfa (Sulfonamide Allergy Rash Verified 05/24/21 14:43 Antibiotics) Home Meds: Home Meds Carboxymethylcellulose Sodium [Artificial Tears] 15 ml OP QID PRN 06/22/19 [History] Ciclopirox [Loprox 0.77% Crm] 1 applic TP BID 06/22/19 [History] Losartan [Cozaar] 25 mg PO DAILY 06/22/19 [History] Mineral Oil, Light/Mineral Oil [Soothe Xp Eye Drops] 1 drop OP QID PRN 06/22/19 [History] Omeprazole Magnesium [Prilosec Otc] 20 mg PO DAILY 06/22/19 [History] Zolpidem Tartrate [Ambien] 10 mg PO BEDTIME PRN 06/22/19 [History] polyethylene glycoL 3350 [MiraLAX] 17 gm PO DAILY PRN 06/22/19 [History] Albuterol [Ventolin 2 MG/5 ML] 0.4 mg PO DAILY PRN 08/08/19 [History] Carboxymethylcellulose Sodium [Refresh Tears 0.5%] 1 drop OP ASDIRECTED PRN 08/08/19 [History] Past Medical History HEENT History: Reports: Glaucoma, Retinal Detachment Other HEENT History: ASTIGMATISM, 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, MYOPIA OF LEFT EYE, PRESBYOPIA, PSEUDOPHAKIA, CORNEAL ARCUS SINELIS, AND PINGUECULA BOTH EYES Cardiovascular History: Reports: Hypertension Gastrointestinal History: Reports: Chronic Constipation, GERD Genitourinary History: Reports: Prostate Disorder, Renal Calculus Other Genitourinary History: HEMATURIA, PHIMOSIS, ACUTE KIDNEY INJURY, RETAINED URETERAL STENT, LOWER URINARY TRACT INFECTION Musculoskeletal History: Reports: Fracture Other Musculoskeletal History: fx R hand, hx bursitis bilat hips Neurological History: Reports: None Endocrine/Metabolic History: Reports: Obesity/BMI 30+ Oncologic (Cancer) History: Reports: Prostate Other Oncologic History: Has had prostate CA in past, had radiation for same. Dermatologic History: Reports: Other (See Below) Other Dermatologic History: FUNGAL INFECTION OF THE GROIN - Infectious Disease History Infectious Disease History: Reports: Chicken Pox, Shingles - Past Surgical History HEENT Surgical History: Reports: Cataract Surgery, Eye Surgery, Laser Surgery Cardiovascular Surgical History: Reports: None GI Surgical History: Reports: Appendectomy, Cholecystectomy, Colonoscopy, EGD Male Surgical History: Reports: Circumcision, Ureteral Stent Other Male Surgeries/Procedures: CYSTOSCOPY WITH LEFT DOUBLE J STENT PLACEMENT, URETEROSCOPY Neurological Surgical History: Reports: Other (See Below) Other Neurological Surgeries/Procedures: back surgery x 3 Musculoskeletal Surgical History: Reports: None Other Musculoskeletal Surgeries/Procedures:: FRACTURE SURGERY LEFT, SPINE SURGERY X 3 Other Oncologic Surgeries/Procedures: PROSTATE INTERSTITIAL RAD THERAPY Dermatological Surgical History: Reports: None Social & Family History - Family History Family Medical History: No Pertinent Family History - Caffeine Use Caffeine Use: Reports: Coffee - Living Situation & Occupation Living situation: Reports: (Lives at home with his ) Occupation: Retired ED ROS GENERAL - Review of Systems Review Of Systems: See Below Constitutional: Reports: No Symptoms. Denies: Fever, Chills, Night Sweats HEENT: Reports: No Symptoms Respiratory: Reports: Shortness of Breath, Wheezing, Pleuritic Chest Pain, Cough, Sputum Cardiovascular: Reports: Chest Pain Endocrine: Reports: No Symptoms GI/Abdominal: Reports: No Symptoms : Reports: No Symptoms Musculoskeletal: Reports: No Symptoms Skin: Reports: No Symptoms Neurological: Reports: No Symptoms Psychiatric: Reports: No Symptoms Hematologic/Lymphatic: Reports: No Symptoms Immunologic: Reports: No Symptoms ED EXAM, GENERAL - Physical Exam Exam: See Below Exam Limited By: No Limitations General Appearance: Alert, WD/WN, No Apparent Distress Ears: Hearing Grossly Normal Nose: Normal Inspection, Normal Mucosa, No Blood Throat/Mouth: Normal Inspection, Normal Lips, Normal Teeth, Normal Voice, No Airway Compromise Head: Atraumatic, Normocephalic Neck: Normal Inspection, Supple, Non-Tender, Full Range of Motion. No: Lymphadenopathy (R), Lymphadenopathy (L) Respiratory/Chest: Other (mild dyspnea, slight retractions, fair AE, insp/exp wheeze b/l, no rales, slight inc'd exp phase, no purse lips, slight use accessory muscles) Cardiovascular: Regular Rate, Rhythm, No Edema, Other (2/6 FINESSE at LSB, quiet precordium) GI/Abdominal: Soft, Non-Tender, No Distention Back Exam: Normal Inspection Extremities: Normal Inspection, Normal Range of Motion Neurological: Alert, Oriented, CN II-XII Intact, Normal Cognition, No Motor/Sensory Deficits Psychiatric: Normal Affect, Normal Mood Skin Exam: Warm, Dry, Intact, Normal Color, No Rash Lymphatic: No Adenopathy Course - Vital Signs Last Recorded V/S: Last Vital Signs Temp 36.8 C 05/24/21 14:49 Pulse 77 05/24/21 14:49 Resp 16 05/24/21 14:49 BP 138/75 05/24/21 14:49 Pulse Ox 95 05/24/21 14:49 - Orders/Labs/Meds Orders: Active Orders 24 hr Category Date Time Status EKG Documentation Completion [RC] ASDIRECTED Care 05/24/21 14:47 Ordered Chest w Cont [CT] Stat Exams 05/24/21 14:48 Ordered C-REACTIVE PROTEIN [CHEM] Stat Lab 05/24/21 14:46 Ordered CBC WITH AUTO DIFF [HEME] Stat Lab 05/24/21 14:46 Ordered COMPREHENSIVE METABOLIC PN,CMP [CHEM] Stat Lab 05/24/21 14:46 Ordered CORONAVIRUS COVID-19 DAVIS [MOLEC] Stat Lab 05/24/21 14:46 Ordered CULTURE BLOOD [BC] Stat Lab 05/24/21 14:46 Ordered CULTURE BLOOD [BC] Stat Lab 05/24/21 14:48 Ordered LACTIC ACID [CHEM] Stat Lab 05/24/21 14:46 Ordered PRO B-TYPE NATRIUR PEPT,BNPPRO [CHEM] Stat Lab 05/24/21 15:11 Received TROPONIN I [CHEM] Stat Lab 05/24/21 14:46 Ordered UA W/MICROSCOPIC [URIN] Stat Lab 05/24/21 14:46 Ordered EKG 12 Lead [EK] Routine Ther 05/24/21 14:46 Ordered - Re-Assessments/Exams Free Text/Narrative Re-Assessment/Exam: 05/24/21 15:37 labs and imaging pending, PO 97% on RA, anticipate admission, septic w/u done Departure - Departure Time of Disposition: 15:37 Disposition: Home, Self-Care 01 Condition: Fair Clinical Impression: Right-sided chest pain, Shortness of breath, Wheezing - Discharge Information Referrals: PCP,None [Primary Care Provider] - Sepsis Event Note (ED) - Evaluation Sepsis Screening Result: No Definite Risk - Focused Exam Vital Signs: Vital Signs Temp Pulse Resp BP Pulse Ox 05/24/21 14:49 36.8 C 77 16 138/75 95 - My Orders Last 24 Hours: My Active Orders 05/24/21 14:46 C-REACTIVE PROTEIN [CHEM] Stat CBC WITH AUTO DIFF [HEME] Stat COMPREHENSIVE METABOLIC PN,CMP [CHEM] Stat CORONAVIRUS COVID-19 DAVIS [MOLEC] Stat CULTURE BLOOD [BC] Stat LACTIC ACID [CHEM] Stat TROPONIN I [CHEM] Stat UA W/MICROSCOPIC [URIN] Stat EKG 12 Lead [EK] Routine 05/24/21 14:47 EKG Documentation Completion [RC] ASDIRECTED 05/24/21 14:48 Chest w Cont [CT] Stat CULTURE BLOOD [BC] Stat - Assessment/Plan Last 24 Hours: My Active Orders 05/24/21 14:46 C-REACTIVE PROTEIN [CHEM] Stat CBC WITH AUTO DIFF [HEME] Stat COMPREHENSIVE METABOLIC PN,CMP [CHEM] Stat CORONAVIRUS COVID-19 DAVIS [MOLEC] Stat CULTURE BLOOD [BC] Stat LACTIC ACID [CHEM] Stat TROPONIN I [CHEM] Stat UA W/MICROSCOPIC [URIN] Stat EKG 12 Lead [EK] Routine 05/24/21 14:47 EKG Documentation Completion [RC] ASDIRECTED 05/24/21 14:48 Chest w Cont [CT] Stat CULTURE BLOOD [BC] Stat
--- NOTE | 2021-05-24 17:30 | PCM.EKG ---
#1 Interpretation EKG Date: 05/24/21 Rhythm: NSR Rate (Beats/Min): 78 [place]: Normal P-Wave: Present QRS: RBBB Comparison: NA - No Prior EKG
[2021-05-24 21:06] VITALS: BP 161/82; PULSE 72
--- NOTE | 2021-05-25 06:10 | ER ---
DATE SEEN: 05/24/2021 ADDENDUM: I saw this patient after Dr. Snider. He had presented with coughing and wheezing possibly after aspiration two days ago. He denies any chest pain, fever, or chills. On review of his vital signs, his blood pressure is normal. He is afebrile and is saturating at 95% room air. Lungs have end-expiratory rhonchi. Extremities, minimal edema. LABORATORY DATA: CRP was 6.9, creatinine 1.5, normal white cell count. COVID is pending. EKG reviewed, normal sinus rhythm. CT of the chest showed thin mucus and mild atelectasis in the right base. There is also subtle bud opacity in the posterior lingula of age indeterminate chronicity, which could be sequelae of minor pneumonia or pneumonitis. FINAL IMPRESSION: 1. Aspiration pneumonitis. 2. Chronic kidney disease. PLAN: Is to discharge the patient home on nebulized albuterol therapy and Augmentin 875 mg twice a day. He should follow up with PCP next week. /[id number] RIVERA/ROBERT
== END 2021-05-24 18:05 | disposition home or self-care (01) ==
LOC: FB.ED 12:57
DX: J69.0 Pneumonitis due to inhalation of food and vomit (principal); I12.9 Hypertensive chronic kidney disease with stage 1 through stage 4 chronic kidney disease, or unspecified chronic kidney disease; N18.9 Chronic kidney disease, unspecified; K21.9 Gastro-esophageal reflux disease without esophagitis; E66.9 Obesity, unspecified; Z68.32 Body mass index [BMI] 32.0-32.9, adult; Z88.8 Allergy status to other drugs, medicaments and biological substances; Z88.2 Allergy status to sulfonamides; Z79.899 Other long term (current) drug therapy; Z20.822 Contact with and (suspected) exposure to COVID-19
CPT/HCPCS: 36415; 71250; 80053; 83605; 83880; 84484; 85025; 86140; 87040; 93005; 99285; A9270; U0002; J7620-GY

== ENCOUNTER 2021-07-08 11:55 | Inpatient (IN) | payer MEDICARE, OTHER ==
[2021-07-08] MEDS: Sodium Chloride 0.9% 10 ML Syringe FLUSH PRN (12:20)
--- NOTE | 2021-07-08 12:22 | EDM.PDOC ---
ED HPI GENERAL MEDICAL PROBLEM - General Time Seen by Provider: 07/08/21 12:05 Source of Information: Reports: Patient History Limitations: Reports: No Limitations - History of Present Illness INITIAL COMMENTS - FREE TEXT/NARRATIVE: 85-year-old male who reports onset of right arm and right leg weakness at approximately 11 PM last night. He also felt like he could not speak very well at that time. He did not anybody about this lady went to sleep. This morning he was still having those symptoms of right-sided weakness and also some difficulty speaking he felt and this was noted by his son and the home health nurse evaluated him and EMS was called and the patient was sent to the emergency department for evaluation. The patient arrives via ambulance and he tells me that he has no pain now. He rates his pain as a 0/10. He also tells me that he has not had any pain with this at all. Specifically, he has had no headache or no chest pain. He denies any difficulty breathing. He tells me that he had a similar episode about 2 weeks ago but it seemed to go away. The patient's chart was reviewed from the [facility] system and I was told that he was seen in clinic about a week ago and his neurologic exam was listed as normal and there was no mention of weakness or asymmetry and his exam. He denies any trouble breathing. He has had no dysuria but does have urinary frequency but this is chronic and ongoing for him. No fevers or chills. No cough. No vomiting or diarrhea. The son is now here with him and he reports that he has noted that his father has been weak for "some time" seem to be worse this morning and he did seem to be more weak on the right than the left. No falls. No known trauma. There are no other associated signs or symptoms. There are no other modifying factors. Onset: Other (11 PM on 07/07/2021.) Duration: Constant Location: Reports: Face, Upper Extremity, Right, Lower Extremity, Right Quality: Reports: Other (Not applicable. 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) (Nothing.) - Related Data Allergies Allergy/AdvReac Type Severity Reaction Status Date / Time pantoprazole sodium Allergy Rash Verified 05/24/21 14:43 [From Protonix] Sulfa (Sulfonamide Allergy Rash Verified 05/24/21 14:43 Antibiotics) Home Meds: Home Meds Carboxymethylcellulose Sodium [Artificial Tears] 1 drop EYEBOTH QID PRN 06/22/19 [History] Ciclopirox [Loprox 0.77% Crm] 1 applic TP BID 06/22/19 [History] Losartan [Cozaar] 25 mg PO DAILY 06/22/19 [History] polyethylene glycoL 3350 [MiraLAX] 17 gm PO DAILY PRN 06/22/19 [History] Albuterol/Ipratropium [DuoNeb 3.0-0.5 MG/3 ML] 3 ml IH Q6H PRN 07/08/21 [History] Lactulose [Cephulac] 15 ml PO TID PRN 07/08/21 [History] Mirtazapine 15 mg PO BEDTIME 07/08/21 [History] Zolpidem Tartrate [Zolpidem Tartrate ER] 12.5 mg PO BEDTIME PRN 07/08/21 [History] hydrOXYzine pamoate [Hydroxyzine Pamoate] 25 mg PO BID PRN 07/08/21 [History] Past Medical History HEENT History: Reports: Glaucoma, Retinal Detachment Other HEENT History: ASTIGMATISM, 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, MYOPIA OF LEFT EYE, PRESBYOPIA, PSEUDOPHAKIA, CORNEAL ARCUS SINELIS, AND PINGUECULA BOTH EYES Cardiovascular History: Reports: Hypertension Gastrointestinal History: Reports: Chronic Constipation, GERD Genitourinary History: Reports: Prostate Disorder, Renal Calculus Other Genitourinary History: HEMATURIA, PHIMOSIS, ACUTE KIDNEY INJURY, RETAINED URETERAL STENT, LOWER URINARY TRACT INFECTION Musculoskeletal History: Reports: Fracture Other Musculoskeletal History: fx R hand, hx bursitis bilat hips Endocrine/Metabolic History: Reports: Obesity/BMI 30+ Oncologic (Cancer) History: Reports: Prostate Other Oncologic History: Has had prostate CA in past, had radiation for same. Dermatologic History: Reports: Other (See Below) Other Dermatologic History: FUNGAL INFECTION OF THE GROIN - Infectious Disease History Infectious Disease History: Reports: Chicken Pox, Shingles - Past Surgical History HEENT Surgical History: Reports: Cataract Surgery, Eye Surgery, Laser Surgery GI Surgical History: Reports: Appendectomy, Cholecystectomy, Colonoscopy, EGD Male Surgical History: Reports: Circumcision, Ureteral Stent Other Male Surgeries/Procedures: CYSTOSCOPY WITH LEFT DOUBLE J STENT PLACEMENT, URETEROSCOPY Neurological Surgical History: Reports: Other (See Below) Other Neurological Surgeries/Procedures: back surgery x 3 Other Musculoskeletal Surgeries/Procedures:: FRACTURE SURGERY LEFT, SPINE SURGERY X 3 Other Oncologic Surgeries/Procedures: PROSTATE INTERSTITIAL RAD THERAPY Social & Family History - Tobacco Use Tobacco Use Status *Q: Unknown Ever Used Tobacco (Nonsmoker) - Caffeine Use Caffeine Use: Reports: Coffee - Alcohol Use Alcohol Use History: Yes Alcohol Use Frequency: Rarely - Living Situation & Occupation Living situation: Reports: (Lives in his own home with his .) Occupation: Retired ED ROS GENERAL - Review of Systems Review Of Systems: See Below Constitutional: Reports: Weakness. Denies: Fever, Chills HEENT: Denies: Throat Pain, Throat Swelling, Vision Change Respiratory: Denies: Shortness of Breath, Cough Cardiovascular: Denies: Chest Pain, Palpitations GI/Abdominal: Denies: Nausea, Vomiting : Reports: Frequency (But this is chronic.). Denies: Dysuria, Hematuria Musculoskeletal: Denies: Neck Pain, Back Pain Skin: Denies: Diaphoresis, Rash Neurological: Reports: Difficulty Walking, Weakness (Right-sided weakness.), Change in Speech. Denies: Dizziness, Headache Psychiatric: Denies: Anxiety, Confusion Hematologic/Lymphatic: Denies: Easy Bleeding, Easy Bruising Immunologic: Reports: Other (Patient has been vaccinated Martin against Covid including a booster vaccination) ED EXAM, NEURO - Physical Exam Exam: See Below Exam Limited By: No Limitations General Appearance: Alert, WD/WN, Mild Distress Eye Exam: Bilateral Eye: EOMI, Normal Inspection (Sclera are anicteric), PERRL Ears: Normal External Exam, Hearing Loss (Heart appearing.) Nose: Normal Inspection, Normal Mucosa, No Blood Throat/Mouth: Normal Oropharynx, Normal Voice, No Airway Compromise Head Exam: Atraumatic, Normocephalic, Other (Mild right facial droop. Mild slurring of speech.) Neck: Normal Inspection, Supple, Non-Tender, Full Range of Motion Respiratory/Chest: No Respiratory Distress, Lungs Clear, Normal Breath Sounds, No Accessory Muscle Use Cardiovascular: Normal Peripheral Pulses, Regular Rate, Rhythm, No Gallop GI/Abdominal: Normal Bowel Sounds, Soft, Non-Tender, No Mass Neurological: Alert, Normal Dorsiflexion, Oriented x 3, Other (Right upper and lower extremity are weaker than the left upper and lower extremity with the right upper extremity being worse than the right lower extremity. There is some right-sided drift in that he is really not able to raise his arm and supinate it for this test.) Back Exam: Normal Inspection Extremities: Normal Capillary Refill Psychiatric: Flat Affect Skin Exam: Warm, Dry, Intact, Normal Color, No Rash #1 Interpretation EKG Date: 07/08/21 Time: 12:06 Rhythm: NSR Rate (Beats/Min): 68 [place]: Normal P-Wave: Present QRS: RBBB ST-T: Normal QT: Normal Comparison: No Change (No change from EKG that was performed on 05/24/2021.) Course - Vital Signs Last Recorded V/S: Last Vital Signs Temp 36.6 C 07/08/21 15:20 Pulse 67 07/08/21 15:20 Resp 16 07/08/21 15:20 BP 154/83 H 07/08/21 15:20 Pulse Ox 98 07/08/21 15:21 - Orders/Labs/Meds Orders: Active Orders 24 hr Category Date Time Status Head wo Cont [CT] Stat Exams 07/08/21 12:16 Taken Sodium Chloride 0.9% [Saline Flush] Med 07/08/21 12:16 Active 10 ml FLUSH ASDIRECTED PRN Peripheral IV Insertion Adult [OM.PC] Routine Oth 07/08/21 12:16 Ordered EKG 12 Lead [EK] Routine Ther 07/08/21 12:16 Ordered Medication Orders Artificial Tears (Carboxymethylcellulose Sodium 0.5% Ophth Soln 15 Ml Bottle) 0 ml EYEBOTH QID PRN PRN Reason: Dry Eyes Aspirin (Aspirin 81 Mg Tab.Chew) 324 mg PO DAILY ANJANA Hydroxyzine HCl (Hydroxyzine Hcl 25 Mg Tab) 25 mg PO BID PRN PRN Reason: Itching/insomnia Lactulose (Lactulose Soln 10 Gm/15 Ml 15 Ml Ud Cup) 10 gm PO TID PRN PRN Reason: Constipation Losartan Potassium (Losartan 25 Mg Tab) 25 mg PO DAILY ANJANA Mirtazapine (Mirtazapine 15 Mg Tab) 15 mg PO BEDTIME ANJANA Polyethylene Glycol (Polyethylene Glycol 3350 Powder 17 Gm Packet) 17 gm PO DAILY PRN PRN Reason: Constipation Sodium Chloride (Sodium Chloride 0.9% 10 Ml Syringe) 10 ml FLUSH ASDIRECTED PRN PRN Reason: Keep Vein Open Last Admin: 07/08/21 12:20 Dose: 10 ml Documented by: ASSHERIF Zolpidem Tartrate (Zolpidem 5 Mg Tab) 5 mg PO BEDTIME PRN PRN Reason: SLEEP Labs: Laboratory Tests 07/08/21 07/08/21 07/08/21 Range/Units 12:32 12:32 12:32 WBC 6.7 (3.2-10.1) x10-3/uL RBC 5.03 (3.90-5.90) x10(6)uL Hgb 14.0 (12.9-17.7) g/dL Hct 42.7 (38.3-50.1) % MCV 84.8 (80.8-98.7) fL MCH 27.9 (27.0-33.3) pg MCHC 32.9 (28.7-35.3) g/dL RDW 14.6 (12.4-15.0) % Plt Count 155 (117-477) x10(3)uL MPV 7.7 (6.7-11.0) fL Neut % (Auto) 62.5 (40.3-71.8) % Lymph % (Auto) 25.8 (15.8-45.3) % [place] % (Auto) 9.1 (5.5-15.2) % Eos % (Auto) 2.0 (0.1-6.8) % Baso % (Auto) 0.6 (0.3-3.8) % Neut # (Auto) 4.2 (1.7-6.9) x10-3/uL Lymph # (Auto) 1.7 (0.5-4.5) x10-3/uL [place] # (Auto) 0.6 (0.0-1.2) x10-3/uL Eos # (Auto) 0.1 (0.0-0.6) x10-3/uL Baso # (Auto) 0.0 (0.0-0.3) x10-3/uL Sodium 139 (135-145) mmol/L Potassium 4.6 (3.5-5.3) mmol/L Chloride 104 (100-110) mmol/L Carbon Dioxide 29 (21-32) mmol/L BUN 20 H (7-18) mg/dL Creatinine 1.4 H (0.70-1.30) mg/dL Est Cr Clr Drug Dosing 39.28 mL/min Estimated GFR (MDRD) 48 L (>60) BUN/Creatinine Ratio 14.3 (9-20) Glucose 98 (80-116) mg/dL Calcium 8.7 (8.6-10.2) mg/dL Magnesium 2.2 (1.8-2.5) mg/dL Total Bilirubin 1.0 (0.1-1.3) mg/dL AST 17 D (5-25) IU/L ALT 26 D (12-36) U/L Alkaline Phosphatase 70 (56-112) IU/L Troponin I 4.9 (4.0-60.3) pg/mL Total Protein 6.7 (6.0-8.0) g/dL Albumin 3.8 (3.2-4.6) g/dL Globulin 2.9 g/dL Albumin/Globulin Ratio 1.3 Triglycerides (15-150) mg/dL Cholesterol (50-200) mg/dL LDL Cholesterol Direct (60-130) mg/dL HDL Cholesterol (40-75) mg/dL Cholesterol/HDL Ratio (0-5) Urine Color (YELLOW) Urine Appearance (CLEAR) Urine pH (5.0-6.5) Ur Specific [place] (1.010-1.025) Urine Protein (NEGATIVE) mg/dL Urine Glucose (UA) (NORMAL) mg/dL Urine Ketones (NEGATIVE) mg/dL Urine Occult Blood (NEGATIVE) Urine Nitrite (NEGATIVE) Urine Bilirubin (NEGATIVE) Urine Urobilinogen (NEGATIVE) mg/dL Ur Leukocyte Esterase (NEGATIVE) Urine RBC (0-5) Urine WBC (0-5) Ur Squamous Epith Cells (NS,R,O) Urine Bacteria (NS) SARS-CoV-2 RNA (DAVIS) (NEGATIVE) 07/08/21 07/08/21 07/08/21 Range/Units 12:32 12:43 12:43 WBC (3.2-10.1) x10-3/uL RBC (3.90-5.90) x10(6)uL Hgb (12.9-17.7) g/dL Hct (38.3-50.1) % MCV (80.8-98.7) fL MCH (27.0-33.3) pg MCHC (28.7-35.3) g/dL RDW (12.4-15.0) % Plt Count (117-477) x10(3)uL MPV (6.7-11.0) fL Neut % (Auto) (40.3-71.8) % Lymph % (Auto) (15.8-45.3) % [place] % (Auto) (5.5-15.2) % Eos % (Auto) (0.1-6.8) % Baso % (Auto) (0.3-3.8) % Neut # (Auto) (1.7-6.9) x10-3/uL Lymph # (Auto) (0.5-4.5) x10-3/uL [place] # (Auto) (0.0-1.2) x10-3/uL Eos # (Auto) (0.0-0.6) x10-3/uL Baso # (Auto) (0.0-0.3) x10-3/uL Sodium (135-145) mmol/L Potassium (3.5-5.3) mmol/L Chloride (100-110) mmol/L Carbon Dioxide (21-32) mmol/L BUN (7-18) mg/dL Creatinine (0.70-1.30) mg/dL Est Cr Clr Drug Dosing mL/min Estimated GFR (MDRD) (>60) BUN/Creatinine Ratio (9-20) Glucose (80-116) mg/dL Calcium (8.6-10.2) mg/dL Magnesium (1.8-2.5) mg/dL Total Bilirubin (0.1-1.3) mg/dL AST (5-25) IU/L ALT (12-36) U/L Alkaline Phosphatase (56-112) IU/L Troponin I (4.0-60.3) pg/mL Total Protein (6.0-8.0) g/dL Albumin (3.2-4.6) g/dL Globulin g/dL Albumin/Globulin Ratio Triglycerides 167 H (15-150) mg/dL Cholesterol 195 (50-200) mg/dL LDL Cholesterol Direct 147 H (60-130) mg/dL HDL Cholesterol 31 L (40-75) mg/dL Cholesterol/HDL Ratio 6.3 H (0-5) Urine Color Yellow (YELLOW) Urine Appearance Clear (CLEAR) Urine pH 6.0 (5.0-6.5) Ur Specific [place] 1.010 (1.010-1.025) Urine Protein Negative (NEGATIVE) mg/dL Urine Glucose (UA) Normal (NORMAL) mg/dL Urine Ketones Negative (NEGATIVE) mg/dL Urine Occult Blood Negative (NEGATIVE) Urine Nitrite Negative (NEGATIVE) Urine Bilirubin Negative (NEGATIVE) Urine Urobilinogen Normal (NEGATIVE) mg/dL Ur Leukocyte Esterase Negative (NEGATIVE) Urine RBC 0-5 (0-5) Urine WBC 5-10 H (0-5) Ur Squamous Epith Cells Rare (NS,R,O) Urine Bacteria Rare H (NS) SARS-CoV-2 RNA (DAVIS) Negative (NEGATIVE) Meds: Medications Generic Name Dose Route Start Last Admin Trade Name Freq PRN Reason Stop Dose Admin Artificial Tears 0 ml 07/08/21 15:27 Carboxymethylcellulose Sodium 0.5% Ophth Soln 15 Ml Bottle EYEBOTH QID PRN Dry Eyes Aspirin 324 mg 07/09/21 09:00 Aspirin 81 Mg Tab.Chew PO DAILY ANJANA Hydroxyzine HCl 25 mg 07/08/21 15:52 Hydroxyzine Hcl 25 Mg Tab PO BID PRN Itching/insomnia Lactulose 10 gm 07/08/21 15:25 Lactulose Soln 10 Gm/15 Ml 15 Ml Ud Cup PO TID PRN Constipation Losartan Potassium 25 mg 07/09/21 09:00 Losartan 25 Mg Tab PO DAILY ANJANA Mirtazapine 15 mg 07/08/21 21:00 Mirtazapine 15 Mg Tab PO BEDTIME ANJANA Polyethylene Glycol 17 gm 07/08/21 15:23 Polyethylene Glycol 3350 Powder 17 Gm Packet PO DAILY PRN Constipation Sodium Chloride 10 ml 07/08/21 12:16 07/08/21 12:20 Sodium Chloride 0.9% 10 Ml Syringe FLUSH 10 ml ASDIRECTED PRN Administration Keep Vein Open Zolpidem Tartrate 5 mg 07/08/21 15:54 Zolpidem 5 Mg Tab PO BEDTIME PRN SLEEP Discontinued Medications Generic Name Dose Route Start Last Admin Trade Name Romy PRN Reason Stop Dose Admin Aspirin 324 mg 07/08/21 15:03 07/08/21 15:05 Aspirin 81 Mg Tab.Chew PO 07/08/21 15:04 324 mg ONETIME ONE Administration Atorvastatin Calcium 40 mg 07/08/21 15:03 07/08/21 15:08 Atorvastatin 40 Mg Tab PO 07/08/21 15:04 40 mg ONETIME ONE Administration - Radiology Interpretation Free Text/Narrative:: CT scan of the head showed no acute intracranial abnormalities. There were ventricular white matter changes consistent with chronic microvascular disease and diffuse volume loss per the [facility] radiologist. - Re-Assessments/Exams Free Text/Narrative Re-Assessment/Exam: 07/08/21 13:00: White blood cell count is 6.7. Hemoglobin is 14.0. Platelet count is 155K. sodium is 139. Potassium is 4.6. Bicarbonate is 29. BUN is 20 and creatinine is 1.4. Glucose is 92. Magnesium is 2.2. LFTs are normal. We are awaiting the CT scan of the patient's head. He has remained hemodynamically and neurologically stable. We are attempting to obtain a urine. He does appear to have had a stroke. Subacute in that it clean hours or more. He is not a candidate for thrombolytic therapy. I have discussed with the patient and with his son and the patient is a DNR/DNI as well. 07/08/21 14:10: The CT scan of the patient's head shows no acute intracranial abnormalities. Has remained hemodynamically and neurologically stable. He still has some right-sided weakness and the slightly slurred speech. He will need admission for further monitoring and for further workup for his acute stroke. In addition he will need physical and occupational therapy. I will discuss this with the patient and I will also discussed with Dr. Enrique as he would be appropriate for admission to [facility]. 07/08/21 14:50: I discussed all this with the patient and with his son and the patient is agreeable to admission to [facility]. 07/08/21 14:55: The patient's Covid test was negative. I discussed the patient's case with Dr. Enrique and she will admit the patient. The patient's plan of care will require a greater then 2 midnight hospital stay therefore, the patient is being placed on inpatient status. Departure - Departure Time of Disposition: 14:55 Disposition: Admitted As Inpatient 67 Condition: Fair Clinical Impression: CVA (cerebral vascular accident) - Discharge Information Sepsis Event Note (ED) - Focused Exam Vital Signs: Vital Signs Temp Pulse Resp BP Pulse Ox 07/08/21 11:55 36.5 C 68 22 H 182/96 H 98 - My Orders Last 24 Hours: My Active Orders 07/08/21 12:16 Head wo Cont [CT] Stat Sodium Chloride 0.9% [Saline Flush] 10 ml FLUSH ASDIRECTED PRN Peripheral IV Insertion Adult [OM.PC] Routine EKG 12 Lead [EK] Routine - Assessment/Plan Last 24 Hours: My Active Orders 07/08/21 12:16 Head wo Cont [CT] Stat Sodium Chloride 0.9% [Saline Flush] 10 ml FLUSH ASDIRECTED PRN Peripheral IV Insertion Adult [OM.PC] Routine EKG 12 Lead [EK] Routine
[2021-07-08] MEDS ORDERED: atorvaSTATin 40 MG Tab PO ONE (15:03)
[2021-07-08] MEDS ORDERED: Aspirin 81 MG Tab.Chew PO ONE (15:03)
[2021-07-08] MEDS ORDERED: Polyethylene Glycol 3350 Powder 17 GM Packet PO PRN (15:23)
[2021-07-08] MEDS ORDERED: Carboxymethylcellulose Sodium 0.5% Ophth Soln 15 ML Bottle EYEBOTH PRN (15:23)
[2021-07-08] MEDS ORDERED: Lactulose Soln 10 GM/15 ML 15 ML UD Cup PO PRN (15:25)
[2021-07-08] MEDS ORDERED: hydrOXYzine HCl 25 MG Tab PO PRN (15:52)
[2021-07-08] MEDS ORDERED: Zolpidem 5 MG Tab PO PRN (15:54)
--- NOTE | 2021-07-08 15:56 | PCM.HP.2 ---
H&P History of Present Illness - General Date of Service: 07/08/21 Admit Problem/Dx: Admission Diagnosis/Problem Admission Diagnosis/Problem CVA, Cerebrovascular accident Source of Information: Patient, Family, Provider History Limitations: Reports: No Limitations - History of Present Illness Initial Comments - Free Text/Narative: John was seen by [facility] nurse today, was not able to move right arm/leg, and she called son. His son reports that he was acting normally on Wednesday, took himself to the bathroom, dresses himself. He normally just sits in the chair due to bilateral leg weakness, which has progressively worsened over the last 2 years. He was also seen by Tato Wiley for blood pressure check on 07/01 in [place], BP was 130/78, did not complain of any headache, blurred vision or weakness at that visit. No change to his Losartan dose. Today his 182/96 when he arrived to ER, EKG showed NSR 68, RBBB, no change from previous 05/24/21. He reported that he had similar episode 2 weeks ago that resolved on its own. He stated that he had right hand numbness and weakness when he went to bed last night but didn't call anyone. He lives with his . No facial droop, he doesn't have his dentures in so son said his speech is unchanged from normal. Slow to answer commands. No headache, or change in vision. No history of pacemaker. History of prostrate cancer, glaucoma, had MRI in 09/2016 showed multilevel degenerative disc disease with moderate right and mild left foraminal narrowing at L3/L4, and spine surgeries x 3. His son also reports that he has "shelf in his throat" that he had a scope for, sometimes food gets stuck has to drink coke, coffee or water to get it down. In ER, WBC 6.7, Hgb 14.0, Plt 155, Cr 1.4, BUN 20, Magnesium 2.2, troponin 4.9, CT head in ER showed no acute changes. UA not collected yet. Covid negative. Received Aspirin 324 mg x 1 and Atorvastatin 40 mg x 1. Repeat BP was 150/80 in ER. Admit for suspected CVA. - Related Data Allergies/Adverse Reactions: Allergies Allergy/AdvReac Type Severity Reaction Status Date / Time pantoprazole sodium Allergy Rash Verified 05/24/21 14:43 [From Protonix] Sulfa (Sulfonamide Allergy Rash Verified 05/24/21 14:43 Antibiotics) Home Medications: Home Meds Carboxymethylcellulose Sodium [Artificial Tears] 15 ml EYEBOTH QID PRN 06/22/19 [History] Ciclopirox [Loprox 0.77% Crm] 1 applic TP BID 06/22/19 [History] Losartan [Cozaar] 25 mg PO DAILY 06/22/19 [History] polyethylene glycoL 3350 [MiraLAX] 17 gm PO DAILY PRN 06/22/19 [History] Albuterol/Ipratropium [DuoNeb 3.0-0.5 MG/3 ML] 3 ml IH Q6H PRN 07/08/21 [History] Lactulose [Cephulac] 15 ml PO TID PRN 07/08/21 [History] Mirtazapine 15 mg PO BEDTIME 07/08/21 [History] Zolpidem Tartrate [Zolpidem Tartrate ER] 12.5 mg PO BEDTIME PRN 07/08/21 [History] hydrOXYzine pamoate [Hydroxyzine Pamoate] 25 mg PO BID PRN 07/08/21 [History] Past Medical History HEENT History: Reports: Glaucoma, Retinal Detachment Other HEENT History: ASTIGMATISM, 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, MYOPIA OF LEFT EYE, PRESBYOPIA, PSEUDOPHAK IA, CORNEAL ARCUS SINELIS, AND PINGUECULA BOTH EYES Cardiovascular History: Reports: Hypertension Respiratory History: Reports: None Gastrointestinal History: Reports: Chronic Constipation, GERD Genitourinary History: Reports: Prostate Disorder, Renal Calculus Other Genitourinary History: HEMATURIA, PHIMOSIS, ACUTE KIDNEY INJURY, RETAINED URETERAL STENT, LOWER URINARY TRACT INFECTION Musculoskeletal History: Reports: Fracture Other Musculoskeletal History: fx R hand, hx bursitis bilat hips Neurological History: Reports: None Endocrine/Metabolic History: Reports: Obesity/BMI 30+ Hematologic History: Reports: None Oncologic (Cancer) History: Reports: None, Prostate Other Oncologic History: Has had prostate CA in past, had radiation for same. Dermatologic History: Reports: Other (See Below) Other Dermatologic History: FUNGAL INFECTION OF THE GROIN - Infectious Disease History Infectious Disease History: Reports: Chicken Pox, Shingles - Past Surgical History HEENT Surgical History: Reports: Cataract Surgery, Eye Surgery, Laser Surgery Cardiovascular Surgical History: Reports: None GI Surgical History: Reports: Appendectomy, Cholecystectomy, Colonoscopy, EGD Male Surgical History: Reports: Circumcision, Ureteral Stent Other Male Surgeries/Procedures: CYSTOSCOPY WITH LEFT DOUBLE J STENT PLACEMENT, URETEROSCOPY Neurological Surgical History: Reports: Other (See Below) Other Neurological Surgeries/Procedures: back surgery x 3 Musculoskeletal Surgical History: Reports: None Other Musculoskeletal Surgeries/Procedures:: FRACTURE SURGERY LEFT, SPINE HERNANDEZ RGERY X 3 Other Oncologic Surgeries/Procedures: PROSTATE INTERSTITIAL RAD THERAPY Dermatological Surgical History: Reports: None Social & Family History - Family History Family Medical History: No Pertinent Family History - Tobacco Use Tobacco Use Status *Q: Never Tobacco User - Caffeine Use Caffeine Use: Reports: Coffee, Soda - Recreational Drug Use Recreational Drug Use: No - Living Situation & Occupation Living situation: Reports: (Lives at home with his ) Occupation: Retired H&P Review of Systems - Review of Systems: Review Of Systems: See Below General: Reports: Weakness. Denies: Fever, Chills, Decreased Appetite HEENT: Reports: No Symptoms Pulmonary: Reports: No Symptoms Cardiovascular: Reports: No Symptoms Gastrointestinal: Reports: Constipation (chronic) Genitourinary: Reports: No Symptoms Musculoskeletal: Reports: Back Pain Skin: Reports: No Symptoms Psychiatric: Reports: No Symptoms Neurological: Reports: Numbness, Weakness, Other. Denies: Trouble Speaking, Change in Speech (slow to answer commands) Hematologic/Lymphatic: Reports: No Symptoms Immunologic: Reports: No Symptoms Exam - Exam Exam: See Below - Vital Signs Vital Signs: Last Vital Signs Temp 97.7 F 07/08/21 11:55 Pulse 68 07/08/21 11:55 Resp 22 H 07/08/21 11:55 BP 182/96 H 07/08/21 11:55 Pulse Ox 98 07/08/21 11:55 Weight: 230 lb - Exam General: Alert, Oriented, Cooperative HEENT: PERRLA, EOMI, Mucosa Moist & [place]. No: Hearing Intact Neck: Supple, Trachea Midline. No: Carotid Bruit Lungs: Clear to Auscultation, Normal Respiratory Effort, Decreased Breath Sounds (bibasilar). No: Crackles, Wheezing Cardiovascular: Regular Rate, Regular Rhythm. No: Systolic Murmur GI/Abdominal Exam: Normal Bowel Sounds, Soft, Non-Tender, No Distention. No: Guarding (Male) Exam: Deferred Rectal (Males) Exam: Deferred Extremities: No Pedal Edema, Normal Capillary Refill, Pallor Peripheral Pulses: 1+: Posterior Tibial (L), Posterior Tibial (R), Dorsalis Pedis (L), Dorsalis Pedis (R), 2+: Radial (L), Radial (R) Skin: Warm, Dry, Intact Neuro Extensive - Motor, Sensory, Reflexes: CN II-XII Intact, Motor/Sensory Deficits (RUE 3/5, LUE 5/5, RLE 3+/5 LLE 4+/5, dental assistant medical assistant: R 3/5, L 5/5, Dorsiflexion: R 4/5 L 5/5 Plantarflexion: R 4/5, L 5/5), Tongue Deviation (R), Pronator Drift (R). No: Dysarthria, Receptive Aphasia, Expressive Aphasia, Total Aphasia, Facial Palsy (R), Facial palsy (L), Abnormal Sensation (intact) - Patient Data Lab Results Last 24 hrs: Laboratory Results - last 24 hr 07/08/21 07/08/21 07/08/21 Range/Units 12:32 12:32 12:32 WBC 6.7 (3.2-10.1) x10-3/uL RBC 5.03 (3.90-5.90) x10(6)uL Hgb 14.0 (12.9-17.7) g/dL Hct 42.7 (38.3-50.1) % MCV 84.8 (80.8-98.7) fL MCH 27.9 (27.0-33.3) pg MCHC 32.9 (28.7-35.3) g/dL RDW 14.6 (12.4-15.0) % Plt Count 155 (117-477) x10(3)uL MPV 7.7 (6.7-11.0) fL Neut % (Auto) 62.5 (40.3-71.8) % Lymph % (Auto) 25.8 (15.8-45.3) % [place] % (Auto) 9.1 (5.5-15.2) % Eos % (Auto) 2.0 (0.1-6.8) % Baso % (Auto) 0.6 (0.3-3.8) % Neut # (Auto) 4.2 (1.7-6.9) x10-3/uL Lymph # (Auto) 1.7 (0.5-4.5) x10-3/uL [place] # (Auto) 0.6 (0.0-1.2) x10-3/uL Eos # (Auto) 0.1 (0.0-0.6) x10-3/uL Baso # (Auto) 0.0 (0.0-0.3) x10-3/uL Sodium 139 (135-145) mmol/L Potassium 4.6 (3.5-5.3) mmol/L Chloride 104 (100-110) mmol/L Carbon Dioxide 29 (21-32) mmol/L BUN 20 H (7-18) mg/dL Creatinine 1.4 H (0.70-1.30) mg/dL Est Cr Clr Drug Dosing 39.28 mL/min Estimated GFR (MDRD) 48 L (>60) BUN/Creatinine Ratio 14.3 (9-20) Glucose 98 (80-116) mg/dL Calcium 8.7 (8.6-10.2) mg/dL Magnesium 2.2 (1.8-2.5) mg/dL Total Bilirubin 1.0 (0.1-1.3) mg/dL AST 17 D (5-25) IU/L ALT 26 D (12-36) U/L Alkaline Phosphatase 70 (56-112) IU/L Troponin I 4.9 (4.0-60.3) pg/mL Total Protein 6.7 (6.0-8.0) g/dL Albumin 3.8 (3.2-4.6) g/dL Globulin 2.9 g/dL Albumin/Globulin Ratio 1.3 Triglycerides (15-150) mg/dL Cholesterol (50-200) mg/dL LDL Cholesterol Direct (60-130) mg/dL HDL Cholesterol (40-75) mg/dL Cholesterol/HDL Ratio (0-5) Urine Color (YELLOW) Urine Appearance (CLEAR) Urine pH (5.0-6.5) Ur Specific [place] (1.010-1.025) Urine Protein (NEGATIVE) mg/dL Urine Glucose (UA) (NORMAL) mg/dL Urine Ketones (NEGATIVE) mg/dL Urine Occult Blood (NEGATIVE) Urine Nitrite (NEGATIVE) Urine Bilirubin (NEGATIVE) Urine Urobilinogen (NEGATIVE) mg/dL Ur Leukocyte Esterase (NEGATIVE) Urine RBC (0-5) Urine WBC (0-5) Ur Squamous Epith Cells (NS,R,O) Urine Bacteria (NS) SARS-CoV-2 RNA (DAVIS) (NEGATIVE) 07/08/21 07/08/21 07/08/21 Range/Units 12:32 12:43 12:43 WBC (3.2-10.1) x10-3/uL RBC (3.90-5.90) x10(6)uL Hgb (12.9-17.7) g/dL Hct (38.3-50.1) % MCV (80.8-98.7) fL MCH (27.0-33.3) pg MCHC (28.7-35.3) g/dL RDW (12.4-15.0) % Plt Count (117-477) x10(3)uL MPV (6.7-11.0) fL Neut % (Auto) (40.3-71.8) % Lymph % (Auto) (15.8-45.3) % [place] % (Auto) (5.5-15.2) % Eos % (Auto) (0.1-6.8) % Baso % (Auto) (0.3-3.8) % Neut # (Auto) (1.7-6.9) x10-3/uL Lymph # (Auto) (0.5-4.5) x10-3/uL [place] # (Auto) (0.0-1.2) x10-3/uL Eos # (Auto) (0.0-0.6) x10-3/uL Baso # (Auto) (0.0-0.3) x10-3/uL Sodium (135-145) mmol/L Potassium (3.5-5.3) mmol/L Chloride (100-110) mmol/L Carbon Dioxide (21-32) mmol/L BUN (7-18) mg/dL Creatinine (0.70-1.30) mg/dL Est Cr Clr Drug Dosing mL/min Estimated GFR (MDRD) (>60) BUN/Creatinine Ratio (9-20) Glucose (80-116) mg/dL Calcium (8.6-10.2) mg/dL Magnesium (1.8-2.5) mg/dL Total Bilirubin (0.1-1.3) mg/dL AST (5-25) IU/L ALT (12-36) U/L Alkaline Phosphatase (56-112) IU/L Troponin I (4.0-60.3) pg/mL Total Protein (6.0-8.0) g/dL Albumin (3.2-4.6) g/dL Globulin g/dL Albumin/Globulin Ratio Triglycerides 167 H (15-150) mg/dL Cholesterol 195 (50-200) mg/dL LDL Cholesterol Direct 147 H (60-130) mg/dL HDL Cholesterol 31 L (40-75) mg/dL Cholesterol/HDL Ratio 6.3 H (0-5) SARS-CoV-2 RNA (DAVIS) Negative (NEGATIVE) Result Diagrams: 07/08/21 12:32 07/08/21 12:32 Sepsis Event Note - Evaluation Sepsis Screening Result: No Definite Risk - Focused Exam Vital Signs: Vital Signs Temp Pulse Resp BP Pulse Ox 07/08/21 11:55 97.7 F 68 22 H 182/96 H 98 *Q Meaningful Use (ADM) - VTE *Q VTE Mechanical Contraindications *Q: At Risk for Falls - VTE Risk Assess *Q Each Risk Factor Represents 1 Point: Obesity ( BMI > 25 kg/m2) Total Score 1 Point Risk Factors: 1 Each Risk Factor Represents 2 Points: Malignancy (present or previous) Total Score 2 Point Risk Factors: 2 Each Risk Factor Represents 3 Points: Age 75 Years or Greater Total Score 3 Point Risk Factors: 3 Each Risk Factor Represents 5 Points: None Total Score 5 Point Risk Factors: 0 Venous Thromboembolism Risk Factor Score *Q: 6 - Stroke *Q Antithrombotic Contraindications Stroke *Q: Comp/Late Effect of Care Thrombolytic/Fibrinolytic Contraindications Stroke *Q: Comp/Late Effect of Care - Problem List (1) Acute right-sided weakness SNOMED Code(s): 547003093 ICD Code: R53.1 - WEAKNESS Status: Acute Current Visit: Yes Onset Date: ~07/07/21 (2) CVA (cerebral vascular accident) SNOMED Code(s): 224646612 ICD Code: I63.9 - CEREBRAL INFARCTION, UNSPECIFIED Status: Suspected Current Visit: Yes (3) Hypertension SNOMED Code(s): 84751866 ICD Code: I10 - ESSENTIAL (PRIMARY) HYPERTENSION Status: Chronic Current Visit: Yes (4) Acute renal failure SNOMED Code(s): 69684778 ICD Code: N17.9 - ACUTE KIDNEY FAILURE, UNSPECIFIED Status: Acute Current Visit: No (5) Constipation SNOMED Code(s): 51664996 ICD Code: K59.00 - CONSTIPATION, UNSPECIFIED Status: Chronic Current Visit: No (6) Insomnia SNOMED Code(s): 561696885 ICD Code: G47.00 - INSOMNIA, UNSPECIFIED Status: Chronic Current Visit: Yes (7) DNR (do not resuscitate) Status: Chronic Current Visit: Yes (8) Palliative care status SNOMED Code(s): 188977075 ICD Code: Z51.5 - ENCOUNTER FOR PALLIATIVE CARE Status: Chronic Current Visit: No (9) DNI (do not intubate) SNOMED Code(s): 801536327 ICD Code: Z78.9 - OTHER SPECIFIED HEALTH STATUS Status: Chronic Current Visit: Yes (10) History of prostate cancer SNOMED Code(s): 883151329 ICD Code: Z85.46 - PERSONAL HISTORY OF MALIGNANT NEOPLASM OF PROSTATE Status: Chronic Current Visit: Yes Onset Date: ~08/2010 Problem List Initiated/Reviewed/Updated: Yes Orders Last 24hrs: Active Orders 24 hr Category Date Time Status Admission Status [Patient Status] [ADT] Routine ADT 07/08/21 14:55 Active Antiembolic Devices [RC] .Routine Care 07/08/21 15:21 Ordered Assess Neurological Status [RC] Q4H Care 07/08/21 15:10 Ordered Communication Order [RC] ASDIRECTED Care 07/08/21 15:10 Ordered Head of Bed Elevation [RC] ASDIRECTED Care 07/08/21 15:10 Ordered Height and Weight [RC] UPON Care 07/08/21 15:21 Ordered Notify Provider Vital Signs [RC] Q4HR Care 07/08/21 15:10 Ordered Pulse Oximetry [RC] PRN Care 07/08/21 15:21 Ordered Telemetry Monitoring [Cardiac Monitoring] [RC] .As Care 07/08/21 14:57 Active Directed Up With Assistance [RC] ASDIRECTED Care 07/08/21 15:21 Ordered Up to Chair [RC] ASDIRECTED Care 07/08/21 15:21 Ordered VTE/DVT Education [RC] Click to Edit Care 07/08/21 15:21 Ordered Vital Signs [RC] Q4HR Care 07/08/21 15:10 Ordered [place] Bedside Swallow Assessment [RC] ASDIRECTED Care 07/08/21 15:10 Ordered OT Evaluation and Treatment [CONS] Routine Cons 07/08/21 15:10 Ordered PT Evaluation and Treatment [CONS] Routine Cons 07/08/21 15:10 Ordered INTERNATIONAL SALES REPRESENTATIVE Evaluation and Treatment [CONS] Routine Cons 07/08/21 15:19 Ordered Brain wo Cont [MR] Routine Exams 07/09/21 08:00 Ordered CV Carotid Duplex Comp [US] Routine Exams 07/09/21 08:00 Ordered Head wo Cont [CT] Stat Exams 07/08/21 12:16 Taken BASIC METABOLIC PANEL,BMP [CHEM] Routine Lab 07/09/21 06:00 Ordered Aspirin Med 07/09/21 09:00 Ordered 324 mg PO DAILY Carboxymethylcellulose Sodium [Artificial Tears] Med 07/08/21 15:23 Ordered 15 ml EYEBOTH QID PRN Carboxymethylcellulose Sodium [Refresh Tears 0.5%] Med 07/08/21 15:23 Ordered 1 drop EYEBOTH ASDIRECTED PRN Lactulose [Chronulac] Med 07/08/21 15:23 Ordered 10 gm PO TID PRN Losartan [Cozaar] Med 07/09/21 09:00 Ordered 25 mg PO DAILY Mirtazapine [Remeron] Med 07/08/21 21:00 Ordered 15 mg PO BEDTIME Sodium Chloride 0.9% [Saline Flush] Med 07/08/21 12:16 Active 10 ml FLUSH ASDIRECTED PRN hydrOXYzine pamoate [Hydroxyzine Pamoate] Med 07/08/21 15:23 Ordered 25 mg PO BID PRN polyethylene glycoL 3350 [MiraLAX] Med 07/08/21 15:23 Ordered 17 gm PO DAILY PRN Antithrombotic Contraindications [AST] Per Unit Routine Oth 07/08/21 15:20 Ordered DVT/VTE Prophylaxis Reflex [OM.PC] Per Unit Routine Oth 07/08/21 15:21 Ordered Peripheral IV Insertion Adult [OM.PC] Routine Oth 07/08/21 12:16 Ordered Thrombo/Fibrinolytic IV Contraind Stroke [AST] Per Unit Oth 07/08/21 15:10 Ordered Routine Resuscitation Status Routine Resus Stat 07/08/21 15:21 Ordered EKG 12 Lead [EK] Routine Ther 07/08/21 12:16 Ordered Medication Orders Artificial Tears (Carboxymethylcellulose Sodium 0.5% Ophth Soln 15 Ml Bottle) ml EYEBOTH ASDIRECTED PRN PRN Reason: Dry Eyes Artificial Tears (Carboxymethylcellulose Sodium 0.5% Ophth Soln 15 Ml Bottle) 0 ml EYEBOTH QID PRN PRN Reason: Dry Eyes Aspirin (Aspirin 81 Mg Tab.Chew) 324 mg PO DAILY ANJANA Lactulose (Lactulose Soln 10 Gm/15 Ml 15 Ml Ud Cup) 10 gm PO TID PRN PRN Reason: Constipation Losartan Potassium (Losartan 25 Mg Tab) 25 mg PO DAILY ANJANA Mirtazapine (Mirtazapine 15 Mg Tab) 15 mg PO BEDTIME ANJANA Non-Formulary Medication (Hydroxyzine Pamoate [Hydroxyzine Pamoate]) 25 mg PO BID PRN PRN Reason: Itching Polyethylene Glycol (Polyethylene Glycol 3350 Powder 17 Gm Packet) 17 gm PO DAILY PRN PRN Reason: Constipation Sodium Chloride (Sodium Chloride 0.9% 10 Ml Syringe) 10 ml FLUSH ASDIRECTED PRN PRN Reason: Keep Vein Open Last Admin: 07/08/21 12:20 Dose: 10 ml Documented by: MICHELLE Assessment/Plan Comment:: 1. Admit for suspected CVA, right sided weakness, ANNETTA. 2. ?CVA/right sided weakness: BLE weakness is not new but now right leg is weaker than left and right arm weakness is new. Family reported ? diverticulum in esophagus but haven't found in it in his [place] chart. Bedside swallow passed. Speech/PT/OT evaluate & treat. Aspirin & Atorvastatin ordered in ER, continue tomorrow. Lipid panel: TG 167, LDL 147, HDL 31, TC195. MRI brain for tomorrow am, Carotid ultrasound for tomorrow. Family had already been talking with [facility] on placement due to progressive lower leg weakness and Hilton with [facility] had talked with nursing that [facility] could possibly take at end of week if he was stable. Jenny Price with discharge planning will talk with Hilton in the morning. Losartan continue. 3. ANNETTA: encourage oral intake, recheck tomorrow, will not do IVF, do not want to raise blood pressures further. 4. Insomnia: Remeron 15 mg at bedtime, Hydroxyzine 25 mg as needed, wean off Ambien as needed if he will be going to custodial. 5. Diet: Regular. 6. Activity: up with assistance & to chair. 7. DVT prophylaxis: TEDs, Lovenox 30 mg sq daily. 8. CODE STATUS: DNR/DNI. 9. Disposition: further workup for CVA, rehab evaluation, and anticipate discharge to [facility] when stable. - Mortality Measure Prognosis:: Poor
[2021-07-08] MEDS: Mirtazapine 15 MG Tab PO SCH (21:33)
[2021-07-08] MEDS: Enoxaparin 40 MG/0.4 ML Syringe SUBCUT SCH (21:33)
[2021-07-09] MEDS ORDERED: Albuterol/Ipratropium 3.0-0.5 MG/3 ML Neb Soln NEB PRN (09:13)
[2021-07-09] MEDS: Aspirin 81 MG Tab.Chew PO SCH (09:16)
[2021-07-09] MEDS: Losartan 25 MG Tab PO SCH (09:16)
--- NOTE | 2021-07-09 09:17 | PCM.EKG ---
#1 Interpretation EKG Date: 07/09/21 Time: 09:04 Rhythm: NSR Rate (Beats/Min): 74 [place]: Normal P-Wave: Present QRS: RBBB ST-T: Normal QT: Normal Comparison: No Change EKG Interpretation Comments: NSR, RBBB chronic, No ST-T wave changes, No change from previous EKG.
[2021-07-09] MEDS: Acetaminophen 500 MG Tab PO PRN ×2 (09:21→23:36)
--- NOTE | 2021-07-09 11:44 | PCM.PN ---
- General Info Date of Service: 07/09/21 Subjective Update: Denied any pain this morning during visit, shortness of breath. He is using his left hand this morning, not using right hand to feed himself. NO abdominal pain, states hasn't had BM since Wednesday, takes Lactulose for constipation. After rounding he reported right side chest pain to nursing, EKG was unchanged from admission. Tylenol given. - Patient Data Vitals - Most Recent: Last Vital Signs Temp 97.7 F 07/09/21 08:00 Pulse 74 07/09/21 09:50 Resp 18 07/09/21 09:00 BP 138/73 07/09/21 09:16 Pulse Ox 96 07/09/21 09:00 Weight - Most Recent: 225 lb 8 oz Lab Results Last 24 Hours: Laboratory Results - last 24 hr 07/08/21 07/08/21 07/08/21 Range/Units 12:32 12:32 12:32 WBC 6.7 (3.2-10.1) x10-3/uL RBC 5.03 (3.90-5.90) x10(6)uL Hgb 14.0 (12.9-17.7) g/dL Hct 42.7 (38.3-50.1) % MCV 84.8 (80.8-98.7) fL MCH 27.9 (27.0-33.3) pg MCHC 32.9 (28.7-35.3) g/dL RDW 14.6 (12.4-15.0) % Plt Count 155 (117-477) x10(3)uL MPV 7.7 (6.7-11.0) fL Neut % (Auto) 62.5 (40.3-71.8) % Lymph % (Auto) 25.8 (15.8-45.3) % [place] % (Auto) 9.1 (5.5-15.2) % Eos % (Auto) 2.0 (0.1-6.8) % Baso % (Auto) 0.6 (0.3-3.8) % Neut # (Auto) 4.2 (1.7-6.9) x10-3/uL Lymph # (Auto) 1.7 (0.5-4.5) x10-3/uL [place] # (Auto) 0.6 (0.0-1.2) x10-3/uL Eos # (Auto) 0.1 (0.0-0.6) x10-3/uL Baso # (Auto) 0.0 (0.0-0.3) x10-3/uL Sodium 139 (135-145) mmol/L Potassium 4.6 (3.5-5.3) mmol/L Chloride 104 (100-110) mmol/L Carbon Dioxide 29 (21-32) mmol/L BUN 20 H (7-18) mg/dL Creatinine 1.4 H (0.70-1.30) mg/dL Est Cr Clr Drug Dosing 39.28 mL/min Estimated GFR (MDRD) 48 L (>60) BUN/Creatinine Ratio 14.3 (9-20) Glucose 98 (80-116) mg/dL Calcium 8.7 (8.6-10.2) mg/dL Magnesium 2.2 (1.8-2.5) mg/dL Total Bilirubin 1.0 (0.1-1.3) mg/dL AST 17 D (5-25) IU/L ALT 26 D (12-36) U/L Alkaline Phosphatase 70 (56-112) IU/L Troponin I 4.9 (4.0-60.3) pg/mL Total Protein 6.7 (6.0-8.0) g/dL Albumin 3.8 (3.2-4.6) g/dL Globulin 2.9 g/dL Albumin/Globulin Ratio 1.3 Triglycerides (15-150) mg/dL Cholesterol (50-200) mg/dL LDL Cholesterol Direct (60-130) mg/dL HDL Cholesterol (40-75) mg/dL Cholesterol/HDL Ratio (0-5) Urine Color Urine Appearance Urine pH Ur Specific [place] Urine Protein Urine Glucose (UA) Urine Ketones Urine Occult Blood Urine Nitrite Urine Bilirubin Urine Urobilinogen Ur Leukocyte Esterase U Hyaline Cast (Auto) Urine RBC Urine WBC Ur Epithelial Cells Ur Squamous Epith Cells Ur Renal Epithelial Cell Calcium Oxalate Crystal Uric Acid Crystals Triple Phos Crystals Other Crystals Amorphous Sediment Urine Bacteria Fine Granular Casts Coarse Granular Casts Waxy Casts RBC Casts WBC Casts Urine Mucus Urine Trichomonas Urine Yeast Urine Sperm Ur Oval Fat Bodies Urinalysis Comment SARS-CoV-2 RNA (DAVIS) (NEGATIVE) 07/08/21 07/08/21 07/08/21 Range/Units 12:32 12:43 12:43 WBC (3.2-10.1) x10-3/uL RBC (3.90-5.90) x10(6)uL Hgb (12.9-17.7) g/dL Hct (38.3-50.1) % MCV (80.8-98.7) fL MCH (27.0-33.3) pg MCHC (28.7-35.3) g/dL RDW (12.4-15.0) % Plt Count (117-477) x10(3)uL MPV (6.7-11.0) fL Neut % (Auto) (40.3-71.8) % Lymph % (Auto) (15.8-45.3) % [place] % (Auto) (5.5-15.2) % Eos % (Auto) (0.1-6.8) % Baso % (Auto) (0.3-3.8) % Neut # (Auto) (1.7-6.9) x10-3/uL Lymph # (Auto) (0.5-4.5) x10-3/uL [place] # (Auto) (0.0-1.2) x10-3/uL Eos # (Auto) (0.0-0.6) x10-3/uL Baso # (Auto) (0.0-0.3) x10-3/uL Sodium (135-145) mmol/L Potassium (3.5-5.3) mmol/L Chloride (100-110) mmol/L Carbon Dioxide (21-32) mmol/L BUN (7-18) mg/dL Creatinine (0.70-1.30) mg/dL Est Cr Clr Drug Dosing mL/min Estimated GFR (MDRD) (>60) BUN/Creatinine Ratio (9-20) Glucose (80-116) mg/dL Calcium (8.6-10.2) mg/dL Magnesium (1.8-2.5) mg/dL Total Bilirubin (0.1-1.3) mg/dL AST (5-25) IU/L ALT (12-36) U/L Alkaline Phosphatase (56-112) IU/L Troponin I (4.0-60.3) pg/mL Total Protein (6.0-8.0) g/dL Albumin (3.2-4.6) g/dL Globulin g/dL Albumin/Globulin Ratio Triglycerides 167 H (15-150) mg/dL Cholesterol 195 (50-200) mg/dL LDL Cholesterol Direct 147 H (60-130) mg/dL HDL Cholesterol 31 L (40-75) mg/dL Cholesterol/HDL Ratio 6.3 H (0-5) Urine Color Cancelled Urine Appearance Cancelled Urine pH Cancelled Ur Specific [place] Cancelled Urine Protein Cancelled Urine Glucose (UA) Cancelled Urine Ketones Cancelled Urine Occult Blood Cancelled Urine Nitrite Cancelled Urine Bilirubin Cancelled Urine Urobilinogen Cancelled Ur Leukocyte Esterase Cancelled U Hyaline Cast (Auto) Cancelled Urine RBC Cancelled Urine WBC Cancelled Ur Epithelial Cells Cancelled Ur Squamous Epith Cells Cancelled Ur Renal Epithelial Cell Cancelled Calcium Oxalate Crystal Cancelled Uric Acid Crystals Cancelled Triple Phos Crystals Cancelled Other Crystals Cancelled Amorphous Sediment Cancelled Urine Bacteria Cancelled Fine Granular Casts Cancelled Coarse Granular Casts Cancelled Waxy Casts Cancelled RBC Casts Cancelled WBC Casts Cancelled Urine Mucus Cancelled Urine Trichomonas Cancelled Urine Yeast Cancelled Urine Sperm Cancelled Ur Oval Fat Bodies Cancelled Urinalysis Comment Cancelled SARS-CoV-2 RNA (DAVIS) Negative (NEGATIVE) 07/08/21 07/09/21 Range/Units 21:30 06:30 WBC (3.2-10.1) x10-3/uL RBC (3.90-5.90) x10(6)uL Hgb (12.9-17.7) g/dL Hct (38.3-50.1) % MCV (80.8-98.7) fL MCH (27.0-33.3) pg MCHC (28.7-35.3) g/dL RDW (12.4-15.0) % Plt Count (117-477) x10(3)uL MPV (6.7-11.0) fL Neut % (Auto) (40.3-71.8) % Lymph % (Auto) (15.8-45.3) % [place] % (Auto) (5.5-15.2) % Eos % (Auto) (0.1-6.8) % Baso % (Auto) (0.3-3.8) % Neut # (Auto) (1.7-6.9) x10-3/uL Lymph # (Auto) (0.5-4.5) x10-3/uL [place] # (Auto) (0.0-1.2) x10-3/uL Eos # (Auto) (0.0-0.6) x10-3/uL Baso # (Auto) (0.0-0.3) x10-3/uL Sodium 139 (135-145) mmol/L Potassium 4.3 (3.5-5.3) mmol/L Chloride 105 (100-110) mmol/L Carbon Dioxide 28 (21-32) mmol/L BUN 21 H (7-18) mg/dL Creatinine 1.5 H (0.70-1.30) mg/dL Est Cr Clr Drug Dosing 36.66 mL/min Estimated GFR (MDRD) 45 L (>60) BUN/Creatinine Ratio 14.0 (9-20) Glucose 96 (80-116) mg/dL Calcium 8.9 (8.6-10.2) mg/dL Magnesium (1.8-2.5) mg/dL Total Bilirubin (0.1-1.3) mg/dL AST (5-25) IU/L ALT (12-36) U/L Alkaline Phosphatase (56-112) IU/L Troponin I (4.0-60.3) pg/mL Total Protein (6.0-8.0) g/dL Albumin (3.2-4.6) g/dL Globulin g/dL Albumin/Globulin Ratio Triglycerides (15-150) mg/dL Cholesterol (50-200) mg/dL LDL Cholesterol Direct (60-130) mg/dL HDL Cholesterol (40-75) mg/dL Cholesterol/HDL Ratio (0-5) Urine Color Yellow Urine Appearance Clear Urine pH 5.0 Ur Specific [place] 1.020 Urine Protein Negative Urine Glucose (UA) Normal Urine Ketones 15 H Urine Occult Blood Negative Urine Nitrite Negative Urine Bilirubin Negative Urine Urobilinogen 4 H Ur Leukocyte Esterase Large H U Hyaline Cast (Auto) Urine RBC 0-5 Urine WBC 10-20 H Ur Epithelial Cells Ur Squamous Epith Cells Few H Ur Renal Epithelial Cell Calcium Oxalate Crystal Uric Acid Crystals Triple Phos Crystals Other Crystals Amorphous Sediment Urine Bacteria Few H Fine Granular Casts Coarse Granular Casts Waxy Casts RBC Casts WBC Casts Urine Mucus Urine Trichomonas Urine Yeast Urine Sperm Ur Oval Fat Bodies Urinalysis Comment SARS-CoV-2 RNA (DAVIS) (NEGATIVE) Med Orders - Current: Current Medications Acetaminophen (Acetaminophen 500 Mg Tab) 500 mg PO Q6H PRN PRN Reason: Pain Last Admin: 07/09/21 09:21 Dose: 500 mg Documented by: Albuterol/Ipratropium (Albuterol/Ipratropium 3.0-0.5 Mg/3 Ml Neb Soln) 3 ml NEB Q6H PRN PRN Reason: Shortness of Breath Last Admin: 07/09/21 09:38 Dose: 3 ml Documented by: Artificial Tears (Carboxymethylcellulose Sodium 0.5% Ophth Soln 15 Ml Bottle) 0 ml EYEBOTH QID PRN PRN Reason: Dry Eyes Aspirin (Aspirin 81 Mg Tab.Chew) 324 mg PO DAILY [facility] Last Admin: 07/09/21 09:16 Dose: 324 mg Documented by: Atorvastatin Calcium (Atorvastatin 40 Mg Tab) 40 mg PO BEDTIME ANJANA Enoxaparin Sodium (Enoxaparin 40 Mg/0.4 Ml Syringe) 40 mg SUBCUT BEDTIME [facility] Last Admin: 07/08/21 21:33 Dose: 40 mg Documented by: Hydroxyzine Pamoate (Hydroxyzine Pamoate 50 Mg Cap) 50 mg PO BID PRN PRN Reason: Itching/insomnia Lactulose (Lactulose Soln 10 Gm/15 Ml 15 Ml Ud Cup) 10 gm PO TID PRN PRN Reason: Constipation Losartan Potassium (Losartan 25 Mg Tab) 25 mg PO DAILY [facility] Last Admin: 07/09/21 09:16 Dose: 25 mg Documented by: Mirtazapine (Mirtazapine 15 Mg Tab) 15 mg PO BEDTIME [facility] Last Admin: 07/08/21 21:33 Dose: 15 mg Documented by: Polyethylene Glycol (Polyethylene Glycol 3350 Powder 17 Gm Packet) 17 gm PO DAILY PRN PRN Reason: Constipation Sodium Chloride (Sodium Chloride 0.9% 10 Ml Syringe) 10 ml FLUSH ASDIRECTED PRN PRN Reason: Keep Vein Open Last Admin: 07/08/21 12:20 Dose: 10 ml Documented by: Zolpidem Tartrate (Zolpidem 5 Mg Tab) 5 mg PO BEDTIME PRN PRN Reason: SLEEP Discontinued Medications Aspirin (Aspirin 81 Mg Tab.Chew) 324 mg PO ONETIME ONE Stop: 07/08/21 15:04 Last Admin: 07/08/21 15:05 Dose: 324 mg Documented by: Atorvastatin Calcium (Atorvastatin 40 Mg Tab) 40 mg PO ONETIME ONE Stop: 07/08/21 15:04 Last Admin: 07/08/21 15:08 Dose: 40 mg Documented by: Hydroxyzine HCl (Hydroxyzine Hcl 25 Mg Tab) 25 mg PO BID PRN PRN Reason: Itching/insomnia Last Admin: 07/09/21 02:00 Dose: 25 mg Documented by: - Exam General: Alert, Oriented, Cooperative, No Acute Distress Lungs: Clear to Auscultation, Normal Respiratory Effort, Decreased Breath Sounds (BLL), Wheezing (upper airway but clear in lobes). No: Crackles Cardiovascular: Regular Rate, Regular Rhythm GI/Abdominal Exam: Normal Bowel Sounds, Soft, Non-Tender, No Distention Extremities: No Pedal Edema Peripheral Pulses: 2+: Radial (L), Radial (R) Neurological: No New Focal Deficit - Patient Data Lab Results Last 24 hrs: Laboratory Results - last 24 hr 07/08/21 07/08/21 07/08/21 Range/Units 12:32 12:32 12:32 WBC 6.7 (3.2-10.1) x10-3/uL RBC 5.03 (3.90-5.90) x10(6)uL Hgb 14.0 (12.9-17.7) g/dL Hct 42.7 (38.3-50.1) % MCV 84.8 (80.8-98.7) fL MCH 27.9 (27.0-33.3) pg MCHC 32.9 (28.7-35.3) g/dL RDW 14.6 (12.4-15.0) % Plt Count 155 (117-477) x10(3)uL MPV 7.7 (6.7-11.0) fL Neut % (Auto) 62.5 (40.3-71.8) % Lymph % (Auto) 25.8 (15.8-45.3) % [place] % (Auto) 9.1 (5.5-15.2) % Eos % (Auto) 2.0 (0.1-6.8) % Baso % (Auto) 0.6 (0.3-3.8) % Neut # (Auto) 4.2 (1.7-6.9) x10-3/uL Lymph # (Auto) 1.7 (0.5-4.5) x10-3/uL [place] # (Auto) 0.6 (0.0-1.2) x10-3/uL Eos # (Auto) 0.1 (0.0-0.6) x10-3/uL Baso # (Auto) 0.0 (0.0-0.3) x10-3/uL Sodium 139 (135-145) mmol/L Potassium 4.6 (3.5-5.3) mmol/L Chloride 104 (100-110) mmol/L Carbon Dioxide 29 (21-32) mmol/L BUN 20 H (7-18) mg/dL Creatinine 1.4 H (0.70-1.30) mg/dL Est Cr Clr Drug Dosing 39.28 mL/min Estimated GFR (MDRD) 48 L (>60) BUN/Creatinine Ratio 14.3 (9-20) Glucose 98 (80-116) mg/dL Calcium 8.7 (8.6-10.2) mg/dL Magnesium 2.2 (1.8-2.5) mg/dL Total Bilirubin 1.0 (0.1-1.3) mg/dL AST 17 D (5-25) IU/L ALT 26 D (12-36) U/L Alkaline Phosphatase 70 (56-112) IU/L Troponin I 4.9 (4.0-60.3) pg/mL Total Protein 6.7 (6.0-8.0) g/dL Albumin 3.8 (3.2-4.6) g/dL Globulin 2.9 g/dL Albumin/Globulin Ratio 1.3 Triglycerides (15-150) mg/dL Cholesterol (50-200) mg/dL LDL Cholesterol Direct (60-130) mg/dL HDL Cholesterol (40-75) mg/dL Cholesterol/HDL Ratio (0-5) Urine Color Urine Appearance Urine pH Ur Specific [place] Urine Protein Urine Glucose (UA) Urine Ketones Urine Occult Blood Urine Nitrite Urine Bilirubin Urine Urobilinogen Ur Leukocyte Esterase U Hyaline Cast (Auto) Urine RBC Urine WBC Ur Epithelial Cells Ur Squamous Epith Cells Ur Renal Epithelial Cell Calcium Oxalate Crystal Uric Acid Crystals Triple Phos Crystals Other Crystals Amorphous Sediment Urine Bacteria Fine Granular Casts Coarse Granular Casts Waxy Casts RBC Casts WBC Casts Urine Mucus Urine Trichomonas Urine Yeast Urine Sperm Ur Oval Fat Bodies Urinalysis Comment SARS-CoV-2 RNA (DAVIS) (NEGATIVE) 07/08/21 07/08/21 07/08/21 Range/Units 12:32 12:43 12:43 WBC (3.2-10.1) x10-3/uL RBC (3.90-5.90) x10(6)uL Hgb (12.9-17.7) g/dL Hct (38.3-50.1) % MCV (80.8-98.7) fL MCH (27.0-33.3) pg MCHC (28.7-35.3) g/dL RDW (12.4-15.0) % Plt Count (117-477) x10(3)uL MPV (6.7-11.0) fL Neut % (Auto) (40.3-71.8) % Lymph % (Auto) (15.8-45.3) % [place] % (Auto) (5.5-15.2) % Eos % (Auto) (0.1-6.8) % Baso % (Auto) (0.3-3.8) % Neut # (Auto) (1.7-6.9) x10-3/uL Lymph # (Auto) (0.5-4.5) x10-3/uL [place] # (Auto) (0.0-1.2) x10-3/uL Eos # (Auto) (0.0-0.6) x10-3/uL Baso # (Auto) (0.0-0.3) x10-3/uL Sodium (135-145) mmol/L Potassium (3.5-5.3) mmol/L Chloride (100-110) mmol/L Carbon Dioxide (21-32) mmol/L BUN (7-18) mg/dL Creatinine (0.70-1.30) mg/dL Est Cr Clr Drug Dosing mL/min Estimated GFR (MDRD) (>60) BUN/Creatinine Ratio (9-20) Glucose (80-116) mg/dL Calcium (8.6-10.2) mg/dL Magnesium (1.8-2.5) mg/dL Total Bilirubin (0.1-1.3) mg/dL AST (5-25) IU/L ALT (12-36) U/L Alkaline Phosphatase (56-112) IU/L Troponin I (4.0-60.3) pg/mL Total Protein (6.0-8.0) g/dL Albumin (3.2-4.6) g/dL Globulin g/dL Albumin/Globulin Ratio Triglycerides 167 H (15-150) mg/dL Cholesterol 195 (50-200) mg/dL LDL Cholesterol Direct 147 H (60-130) mg/dL HDL Cholesterol 31 L (40-75) mg/dL Cholesterol/HDL Ratio 6.3 H (0-5) Urine Color Cancelled Urine Appearance Cancelled Urine pH Cancelled Ur Specific [place] Cancelled Urine Protein Cancelled Urine Glucose (UA) Cancelled Urine Ketones Cancelled Urine Occult Blood Cancelled Urine Nitrite Cancelled Urine Bilirubin Cancelled Urine Urobilinogen Cancelled Ur Leukocyte Esterase Cancelled U Hyaline Cast (Auto) Cancelled Urine RBC Cancelled Urine WBC Cancelled Ur Epithelial Cells Cancelled Ur Squamous Epith Cells Cancelled Ur Renal Epithelial Cell Cancelled Calcium Oxalate Crystal Cancelled Uric Acid Crystals Cancelled Triple Phos Crystals Cancelled Other Crystals Cancelled Amorphous Sediment Cancelled Urine Bacteria Cancelled Fine Granular Casts Cancelled Coarse Granular Casts Cancelled Waxy Casts Cancelled RBC Casts Cancelled WBC Casts Cancelled Urine Mucus Cancelled Urine Trichomonas Cancelled Urine Yeast Cancelled Urine Sperm Cancelled Ur Oval Fat Bodies Cancelled Urinalysis Comment Cancelled SARS-CoV-2 RNA (DAVIS) Negative (NEGATIVE) 07/08/21 07/09/21 Range/Units 21:30 06:30 WBC (3.2-10.1) x10-3/uL RBC (3.90-5.90) x10(6)uL Hgb (12.9-17.7) g/dL Hct (38.3-50.1) % MCV (80.8-98.7) fL MCH (27.0-33.3) pg MCHC (28.7-35.3) g/dL RDW (12.4-15.0) % Plt Count (117-477) x10(3)uL MPV (6.7-11.0) fL Neut % (Auto) (40.3-71.8) % Lymph % (Auto) (15.8-45.3) % [place] % (Auto) (5.5-15.2) % Eos % (Auto) (0.1-6.8) % Baso % (Auto) (0.3-3.8) % Neut # (Auto) (1.7-6.9) x10-3/uL Lymph # (Auto) (0.5-4.5) x10-3/uL [place] # (Auto) (0.0-1.2) x10-3/uL Eos # (Auto) (0.0-0.6) x10-3/uL Baso # (Auto) (0.0-0.3) x10-3/uL Sodium 139 (135-145) mmol/L Potassium 4.3 (3.5-5.3) mmol/L Chloride 105 (100-110) mmol/L Carbon Dioxide 28 (21-32) mmol/L BUN 21 H (7-18) mg/dL Creatinine 1.5 H (0.70-1.30) mg/dL Est Cr Clr Drug Dosing 36.66 mL/min Estimated GFR (MDRD) 45 L (>60) BUN/Creatinine Ratio 14.0 (9-20) Glucose 96 (80-116) mg/dL Calcium 8.9 (8.6-10.2) mg/dL Magnesium (1.8-2.5) mg/dL Total Bilirubin (0.1-1.3) mg/dL AST (5-25) IU/L ALT (12-36) U/L Alkaline Phosphatase (56-112) IU/L Troponin I (4.0-60.3) pg/mL Total Protein (6.0-8.0) g/dL Albumin (3.2-4.6) g/dL Globulin g/dL Albumin/Globulin Ratio Triglycerides (15-150) mg/dL Cholesterol (50-200) mg/dL LDL Cholesterol Direct (60-130) mg/dL HDL Cholesterol (40-75) mg/dL Cholesterol/HDL Ratio (0-5) Urine Color Yellow Urine Appearance Clear Urine pH 5.0 Ur Specific [place] 1.020 Urine Protein Negative Urine Glucose (UA) Normal Urine Ketones 15 H Urine Occult Blood Negative Urine Nitrite Negative Urine Bilirubin Negative Urine Urobilinogen 4 H Ur Leukocyte Esterase Large H U Hyaline Cast (Auto) Urine RBC 0-5 Urine WBC 10-20 H Ur Epithelial Cells Ur Squamous Epith Cells Few H Ur Renal Epithelial Cell Calcium Oxalate Crystal Uric Acid Crystals Triple Phos Crystals Other Crystals Amorphous Sediment Urine Bacteria Few H Fine Granular Casts Coarse Granular Casts Waxy Casts RBC Casts WBC Casts Urine Mucus Urine Trichomonas Urine Yeast Urine Sperm Ur Oval Fat Bodies Urinalysis Comment SARS-CoV-2 RNA (DAVIS) (NEGATIVE) Result Diagrams: 07/08/21 12:32 07/09/21 06:30 Sepsis Event Note - Evaluation Sepsis Screening Result: No Definite Risk - Focused Exam Vital Signs: Vital Signs Temp Pulse Resp BP BP Pulse Ox 07/09/21 09:50 74 07/09/21 09:16 138/73 07/09/21 09:00 18 138/73 96 07/09/21 08:00 97.7 F 67 16 150/72 H 95 07/09/21 04:00 18 158/85 H 98 07/09/21 00:00 97.8 F 64 18 190/80 H 96 - Problem List & Annotations (1) Acute right-sided weakness SNOMED Code(s): 331760633 Code(s): R53.1 - WEAKNESS Status: Acute Current Visit: Yes Onset Date: ~07/07/21 (2) CVA (cerebral vascular accident) SNOMED Code(s): 284044418 Code(s): I63.9 - CEREBRAL INFARCTION, UNSPECIFIED Status: Suspected Current Visit: Yes (3) Hypertension SNOMED Code(s): 44482267 Code(s): I10 - ESSENTIAL (PRIMARY) HYPERTENSION Status: Chronic Current Visit: Yes (4) Acute renal failure SNOMED Code(s): 91049260 Code(s): N17.9 - ACUTE KIDNEY FAILURE, UNSPECIFIED Status: Acute Current Visit: No Annotation/Comment:: Cr 1.5 (5) Constipation SNOMED Code(s): 43593483 Code(s): K59.00 - CONSTIPATION, UNSPECIFIED Status: Chronic Current Visit: No (6) Insomnia SNOMED Code(s): 532334186 Code(s): G47.00 - INSOMNIA, UNSPECIFIED Status: Chronic Current Visit: Yes (7) DNR (do not resuscitate) Status: Chronic Current Visit: Yes (8) Palliative care status SNOMED Code(s): 099085608 Code(s): Z51.5 - ENCOUNTER FOR PALLIATIVE CARE Status: Chronic Current Visit: No (9) DNI (do not intubate) SNOMED Code(s): 604151261 Code(s): Z78.9 - OTHER SPECIFIED HEALTH STATUS Status: Chronic Current Visit: Yes (10) History of prostate cancer SNOMED Code(s): 423758952 Code(s): Z85.46 - PERSONAL HISTORY OF MALIGNANT NEOPLASM OF PROSTATE Status: Chronic Current Visit: Yes Onset Date: ~08/2010 - Problem List Review Problem List Initiated/Reviewed/Updated: Yes - My Orders Last 24 Hours: My Active Orders 07/08/21 15:10 Vital Signs [RC] 08,12,16,20,00,04 [place] Bedside Swallow Assessment [RC] ASDIRECTED OT Evaluation and Treatment [CONS] Routine PT Evaluation and Treatment [CONS] Routine Thrombo/Fibrinolytic IV Contraind Stroke [AST] Per Unit Routine 07/08/21 15:19 PATIENT SAFETY OFFICER Evaluation and Treatment [CONS] Routine 07/08/21 15:20 Antithrombotic Contraindications [AST] Per Unit Routine 07/08/21 15:21 Antiembolic Devices [RC] .Routine Height and Weight [RC] UPON Pulse Oximetry [RC] .PRN Up With Assistance [RC] ASDIRECTED Up to Chair [RC] ASDIRECTED VTE/DVT Education [RC] Click to Edit DVT/VTE Prophylaxis Reflex [OM.PC] Per Unit Routine Resuscitation Status Routine 07/08/21 15:23 polyethylene glycoL 3350 [MiraLAX] 17 gm PO DAILY PRN 07/08/21 15:25 Lactulose [Chronulac] 10 gm PO TID PRN 07/08/21 15:27 Carboxymethylcellulose Sodium [Refresh Tears 0.5%] 0 ml EYEBOTH QID PRN 07/08/21 15:54 Zolpidem [Ambien] 5 mg PO BEDTIME PRN 07/08/21 Dinner Regular Diet [DIET] 07/08/21 16:59 Antiembolic Hose [OM.PC] Routine 07/08/21 21:00 Enoxaparin [Lovenox] 40 mg SUBCUT BEDTIME Mirtazapine [Remeron] 15 mg PO BEDTIME 07/08/21 21:30 CULTURE URINE [RM] Routine 07/09/21 08:00 Brain wo Cont [MR] Routine CV Carotid Duplex Comp [US] Routine 07/09/21 09:00 Aspirin 324 mg PO DAILY Losartan [Cozaar] 25 mg PO DAILY 07/09/21 09:13 Acetaminophen [Tylenol Extra Strength] 500 mg PO Q6H PRN Albuterol/Ipratropium [DuoNeb 3.0-0.5 MG/3 ML] 3 ml NEB Q6H PRN EKG 12 Lead [EK] Stat 07/09/21 09:15 RT Aerosol Therapy [RC] ASDIRECTED 07/09/21 11:31 hydrOXYzine pamoate [Vistaril] 50 mg PO BID PRN 07/09/21 21:00 atorvaSTATin [Lipitor] 40 mg PO BEDTIME - Plan Plan:: 1. ?CVA/right sided weakness: MRI brain, Carotid today. PT/OT/speech today. Passed bedside swallow. 2. ANNETTA: Cr 1.5. Encourage oral intake. 3. Insomnia: Remeron 15 mg at bedtime, Hydroxyzine 50 mg as needed, wean off Ambien as needed if he will be going to [facility]. 4. Disposition: further workup for CVA, rehab evaluation, and anticipate discharge to [facility] when stable, possibly end of week or Wednesday.
[2021-07-09] MEDS: Sodium Chloride 0.9% 1,000 ML IV SCH (13:12)
[2021-07-09] MEDS ORDERED: Iopamidol 755 Mg/ML 100 ML Bottle IV ONE (13:34)
[2021-07-09] MEDS: atorvaSTATin 40 MG Tab PO SCH (21:22)
[2021-07-09] MEDS: Enoxaparin 40 MG/0.4 ML Syringe SUBCUT SCH (21:22)
[2021-07-09] MEDS: Mirtazapine 15 MG Tab PO SCH (21:22)
[2021-07-10] MEDS: Sodium Chloride 0.9% 1,000 ML IV SCH (02:44)
[2021-07-10] MEDS: Aspirin 81 MG Tab.Chew PO SCH (09:21)
[2021-07-10] MEDS: Losartan 25 MG Tab PO SCH (09:22)
--- NOTE | 2021-07-10 13:39 | PCM.PN ---
- General Info Date of Service: 07/10/21 Subjective Update: John states he didn't sleep much last night, nurse reported that he fell asleep within 30 minutes of getting Hydroxyzine and slept most of the night. Some confusion this morning. Blood pressures controlled and no new focal deficits. Had large BM yesterday. No abdominal pain. No shortness of breath. - Patient Data Vitals - Most Recent: Last Vital Signs Temp 97.5 F 07/10/21 12:00 Pulse 71 07/10/21 12:00 Resp 18 07/10/21 12:00 BP 151/70 H 07/10/21 12:00 Pulse Ox 97 07/10/21 12:00 Weight - Most Recent: 225 lb 8 oz I&O - Last 24 Hours: Intake & Output 07/09/21 07/10/21 07/10/21 22:59 06:59 14:59 Intake Total 600 600 Balance 600 600 Lab Results Last 24 Hours: Laboratory Results - last 24 hr 07/10/21 Range/Units 06:12 Sodium 141 (135-145) mmol/L Potassium 4.4 (3.5-5.3) mmol/L Chloride 106 (100-110) mmol/L Carbon Dioxide 28 (21-32) mmol/L BUN 22 H (7-18) mg/dL Creatinine 1.4 H (0.70-1.30) mg/dL Est Cr Clr Drug Dosing 39.28 mL/min Estimated GFR (MDRD) 48 L (>60) BUN/Creatinine Ratio 15.7 (9-20) Glucose 101 (80-116) mg/dL Calcium 8.4 L (8.6-10.2) mg/dL Edil Results Last 24 Hours: Microbiology 07/08/21 21:30 Urine Culture - Preliminary Urine, Voided MIXED POSITIVE ELLIE DAY 1 Med Orders - Current: Current Medications Acetaminophen (Acetaminophen 500 Mg Tab) 500 mg PO Q6H PRN PRN Reason: Pain Last Admin: 07/09/21 23:36 Dose: 500 mg Documented by: Albuterol/Ipratropium (Albuterol/Ipratropium 3.0-0.5 Mg/3 Ml Neb Soln) 3 ml NEB Q6H PRN PRN Reason: Shortness of Breath Last Admin: 07/09/21 09:38 Dose: 3 ml Documented by: Artificial Tears (Carboxymethylcellulose Sodium 0.5% Ophth Soln 15 Ml Bottle) 0 ml EYEBOTH QID PRN PRN Reason: Dry Eyes Aspirin (Aspirin 81 Mg Tab.Chew) 324 mg PO DAILY [facility] Last Admin: 07/10/21 09:21 Dose: 324 mg Documented by: Atorvastatin Calcium (Atorvastatin 40 Mg Tab) 40 mg PO BEDTIME ANJANA Last Admin: 07/09/21 21:22 Dose: 40 mg Documented by: Enoxaparin Sodium (Enoxaparin 40 Mg/0.4 Ml Syringe) 40 mg SUBCUT BEDTIME [facility] Last Admin: 07/09/21 21:22 Dose: 40 mg Documented by: Hydroxyzine Pamoate (Hydroxyzine Pamoate 50 Mg Cap) 50 mg PO BID PRN PRN Reason: Itching/insomnia Last Admin: 07/09/21 23:36 Dose: 50 mg Documented by: Sodium Chloride (Normal Saline) 1,000 mls @ 75 mls/hr IV ASDIRECTED [facility] Last Admin: 07/10/21 02:44 Dose: 75 mls/hr Documented by: Lactulose (Lactulose Soln 10 Gm/15 Ml 15 Ml Ud Cup) 10 gm PO TID PRN PRN Reason: Constipation Losartan Potassium (Losartan 25 Mg Tab) 25 mg PO DAILY [facility] Last Admin: 07/10/21 09:22 Dose: 25 mg Documented by: Mirtazapine (Mirtazapine 15 Mg Tab) 15 mg PO BEDTIME [facility] Last Admin: 07/09/21 21:22 Dose: 15 mg Documented by: Polyethylene Glycol (Polyethylene Glycol 3350 Powder 17 Gm Packet) 17 gm PO DAILY PRN PRN Reason: Constipation Sodium Chloride (Sodium Chloride 0.9% 10 Ml Syringe) 10 ml FLUSH ASDIRECTED PRN PRN Reason: Keep Vein Open Last Admin: 07/08/21 12:20 Dose: 10 ml Documented by: Discontinued Medications Aspirin (Aspirin 81 Mg Tab.Chew) 324 mg PO ONETIME ONE Stop: 07/08/21 15:04 Last Admin: 07/08/21 15:05 Dose: 324 mg Documented by: Atorvastatin Calcium (Atorvastatin 40 Mg Tab) 40 mg PO ONETIME ONE Stop: 07/08/21 15:04 Last Admin: 07/08/21 15:08 Dose: 40 mg Documented by: Hydroxyzine HCl (Hydroxyzine Hcl 25 Mg Tab) 25 mg PO BID PRN PRN Reason: Itching/insomnia Last Admin: 07/09/21 02:00 Dose: 25 mg Documented by: Iopamidol (Iopamidol 755 Mg/Ml 100 Ml Bottle) 85 ml IV . DIRECTED ONE Stop: 07/09/21 13:35 Last Admin: 07/09/21 14:43 Dose: 85 ml Documented by: Zolpidem Tartrate (Zolpidem 5 Mg Tab) 5 mg PO BEDTIME PRN PRN Reason: SLEEP - Exam General: Alert, Oriented, Cooperative HEENT: Pupils Equal, Pupils Reactive Neck: Trachea Midline Lungs: Clear to Auscultation, Normal Respiratory Effort. No: Wheezing Cardiovascular: Regular Rate, Regular Rhythm GI/Abdominal Exam: Normal Bowel Sounds, Soft, Non-Tender, No Distention Extremities: No Pedal Edema Peripheral Pulses: 2+: Radial (L), Radial (R) Neurological: No New Focal Deficit - Patient Data Lab Results Last 24 hrs: Laboratory Results - last 24 hr 07/10/21 Range/Units 06:12 Sodium 141 (135-145) mmol/L Potassium 4.4 (3.5-5.3) mmol/L Chloride 106 (100-110) mmol/L Carbon Dioxide 28 (21-32) mmol/L BUN 22 H (7-18) mg/dL Creatinine 1.4 H (0.70-1.30) mg/dL Est Cr Clr Drug Dosing 39.28 mL/min Estimated GFR (MDRD) 48 L (>60) BUN/Creatinine Ratio 15.7 (9-20) Glucose 101 (80-116) mg/dL Calcium 8.4 L (8.6-10.2) mg/dL Result Diagrams: 07/08/21 12:32 07/10/21 06:12 Edil Results Last 24 hrs: Microbiology 07/08/21 21:30 Urine Culture - Preliminary Urine, Voided MIXED POSITIVE ELLIE DAY 1 Sepsis Event Note - Evaluation Sepsis Screening Result: No Definite Risk - Focused Exam Vital Signs: Vital Signs Temp Pulse Resp BP BP Pulse Ox 07/10/21 12:00 97.5 F 71 18 151/70 H 97 07/10/21 09:22 148/68 H 07/10/21 08:00 98.4 F 70 18 148/68 H 98 - Problem List & Annotations (1) CVA (cerebral vascular accident) SNOMED Code(s): 773345444 Code(s): I63.9 - CEREBRAL INFARCTION, UNSPECIFIED Status: Acute Current Visit: Yes Annotation/Comment:: MRI brain: left posterior frontal lobe & left parietal periatrial white matter consistent with acute infarct. CTA head: Severe focal stenosis of cavernous left ICA by soft & calcified atheromatous plaquing. Moderate to severe multifocal narrowing of the proximal posterior cerebral arteries bilaterally, likely atheromatous in origin. Vessels remain patent beyond the level of the crural cistern on each side. Multifocal irregularity involving the distal M1 segments bilaterally which is less severe but also likely on the basis of atheromatous disease. CTA neck: No significant atheromatous narrowing within the neck vasculature. Possible tracheomalacia incidentally noted. (2) Internal carotid artery stenosis SNOMED Code(s): 153003689 Code(s): I65.29 - OCCLUSION AND STENOSIS OF UNSPECIFIED CAROTID ARTERY Status: Acute Current Visit: Yes Qualifiers: Laterality: left Qualified Code(s): I65.22 - Occlusion and stenosis of left carotid artery Annotation/Comment:: CTA head: Severe focal stenosis of cavernous left ICA by soft & calcified atheromatous plaquing. Moderate to severe multifocal narrowing of the proximal posterior cerebral arteries bilaterally, likely atheromatous in origin. Vessels remain patent beyond the level of the crural cistern on each side. Multifocal irregularity involving the distal M1 segments bilaterally which is less severe but also likely on the basis of atheromatous disease. CTA neck: No significant atheromatous narrowing within the neck vasculature. Possible tracheomalacia incidentally noted. (3) Acute right-sided weakness SNOMED Code(s): 098592126 Code(s): R53.1 - WEAKNESS Status: Acute Current Visit: Yes Onset Date: ~07/07/21 (4) Acute renal failure SNOMED Code(s): 41860857 Code(s): N17.9 - ACUTE KIDNEY FAILURE, UNSPECIFIED Status: Acute Current Visit: No Annotation/Comment:: Cr 1.4, received constrast yesterday so will continue IVF. (5) Tracheomalacia SNOMED Code(s): 84172549 Code(s): J39.8 - OTHER SPECIFIED DISEASES OF UPPER RESPIRATORY TRACT Status: Chronic Current Visit: Yes Annotation/Comment:: incidential finding on CTA neck. Has upper airway wheezing occasionally, continue DuoNebs as needed. (6) Hypertension SNOMED Code(s): 53112902 Code(s): I10 - ESSENTIAL (PRIMARY) HYPERTENSION Status: Chronic Current Visit: Yes (7) Constipation SNOMED Code(s): 09574223 Code(s): K59.00 - CONSTIPATION, UNSPECIFIED Status: Chronic Current Visit: No Qualifiers: Constipation type: chronic idiopathic constipation Qualified Code(s): K59.04 - Chronic idiopathic constipation (8) Insomnia SNOMED Code(s): 316569011 Code(s): G47.00 - INSOMNIA, UNSPECIFIED Status: Chronic Current Visit: Yes (9) DNR (do not resuscitate) Status: Chronic Current Visit: Yes (10) Palliative care status SNOMED Code(s): 606377275 Code(s): Z51.5 - ENCOUNTER FOR PALLIATIVE CARE Status: Chronic Current Visit: No (11) DNI (do not intubate) SNOMED Code(s): 269787304 Code(s): Z78.9 - OTHER SPECIFIED HEALTH STATUS Status: Chronic Current Visit: Yes (12) History of prostate cancer SNOMED Code(s): 888522817 Code(s): Z85.46 - PERSONAL HISTORY OF MALIGNANT NEOPLASM OF PROSTATE Status: Chronic Current Visit: Yes Onset Date: ~08/2010 - Problem List Review Problem List Initiated/Reviewed/Updated: Yes - My Orders Last 24 Hours: My Active Orders 07/09/21 12:45 Sodium Chloride 0.9% [Normal Saline] 1,000 ml IV ASDIRECTED 07/09/21 13:04 Ang Head [CT] Routine Ang Neck [CT] Routine 07/09/21 21:00 atorvaSTATin [Lipitor] 40 mg PO BEDTIME 07/10/21 Breakfast International Dysphagia Diet [DIET] - Plan Plan:: 1. ?CVA/right sided weakness: MRI brain: left posterior frontal lobe & left parietal periatrial white matter consistent with acute infarct. CTA head: Severe focal stenosis of cavernous left ICA by soft & calcified atheromatous plaquing. Moderate to severe multifocal narrowing of the proximal posterior cerebral arteries bilaterally, likely atheromatous in origin. Vessels remain patent beyond the level of the crural cistern on each side. Multifocal irregularity involving the distal M1 segments bilaterally which is less severe but also likely on the basis of atheromatous disease. CTA neck: No significant atheromatous narrowing within the neck vasculature. Possible tracheomalacia incidentally noted. PT/OT, speech recommended regular easy to chew diet. Will need neurovascular referral as outpatient. 2. ANNETTA: Cr 1.4. IVF for 24 hours s/p contrast. Encourage oral intake. Repeat BMP tomorrow. 3. Insomnia: Remeron 15 mg at bedtime, Hydroxyzine 50 mg as needed, discontinued Ambien. 4. Disposition: rehab and anticipate discharge to [facility]' Wednesday if he remains stable. Will need Covid screen on Wednesday.
[2021-07-10] MEDS: Mirtazapine 15 MG Tab PO SCH (20:14)
[2021-07-10] MEDS: atorvaSTATin 40 MG Tab PO SCH (20:14)
[2021-07-10] MEDS: Enoxaparin 40 MG/0.4 ML Syringe SUBCUT SCH (20:14)
[2021-07-10] MEDS: Acetaminophen 500 MG Tab PO PRN (22:23)
[2021-07-11] MEDS: Sodium Chloride 0.9% 10 ML Syringe FLUSH PRN ×2 (08:05→13:47)
[2021-07-11] MEDS: Losartan 25 MG Tab PO SCH (08:07)
[2021-07-11] MEDS: Aspirin 81 MG Tab.Chew PO SCH (08:07)
[2021-07-11] MEDS ORDERED: Metoprolol Succinate 25 MG Tab.ER PO SCH (10:00)
--- NOTE | 2021-07-11 10:00 | PCM.PN ---
- General Info Date of Service: 07/11/21 Admission Dx/Problem (Free Text): Admission Diagnosis/Problem Admission Diagnosis/Problem CVA, Cerebrovascular accident Subjective Update: Patient states that he feels well today and has no new/acute complaints. Note that the patient does appear to be confused. Functional Status: Reports: Pain Controlled, Tolerating Diet, Ambulating, Urinating - Review of Systems General: Reports: Weakness HEENT: Reports: No Symptoms Pulmonary: Reports: Shortness of Breath Cardiovascular: Reports: No Symptoms Gastrointestinal: Reports: No Symptoms Genitourinary: Reports: No Symptoms Musculoskeletal: Reports: No Symptoms Skin: Reports: No Symptoms Neurological: Reports: Difficulty Walking, Weakness Psychiatric: Reports: Confusion - Patient Data Vitals - Most Recent: Last Vital Signs Temp 36.4 C 07/11/21 04:00 Pulse 74 07/11/21 04:00 Resp 18 07/11/21 04:00 BP 178/83 H 07/11/21 08:07 Pulse Ox 97 07/11/21 04:00 Weight - Most Recent: 102.285 kg Lab Results Last 24 Hours: Laboratory Results - last 24 hr 07/11/21 Range/Units 05:58 Sodium 140 (135-145) mmol/L Potassium 4.3 (3.5-5.3) mmol/L Chloride 105 (100-110) mmol/L Carbon Dioxide 26 (21-32) mmol/L BUN 20 H (7-18) mg/dL Creatinine 1.4 H (0.70-1.30) mg/dL Est Cr Clr Drug Dosing 39.28 mL/min Estimated GFR (MDRD) 48 L (>60) BUN/Creatinine Ratio 14.3 (9-20) Glucose 100 (80-116) mg/dL Calcium 8.4 L (8.6-10.2) mg/dL Edil Results Last 24 Hours: Microbiology 07/08/21 21:30 Urine Culture - Final Urine, Voided MIXED POSITIVE ELLIE DAY 2 Med Orders - Current: Current Medications Acetaminophen (Acetaminophen 500 Mg Tab) 500 mg PO Q6H PRN PRN Reason: Pain Last Admin: 07/10/21 22:23 Dose: 500 mg Documented by: Albuterol/Ipratropium (Albuterol/Ipratropium 3.0-0.5 Mg/3 Ml Neb Soln) 3 ml NEB Q6H PRN PRN Reason: Shortness of Breath Last Admin: 07/09/21 09:38 Dose: 3 ml Documented by: Artificial Tears (Carboxymethylcellulose Sodium 0.5% Ophth Soln 15 Ml Bottle) 0 ml EYEBOTH QID PRN PRN Reason: Dry Eyes Aspirin (Aspirin 81 Mg Tab.Chew) 324 mg PO DAILY [facility] Last Admin: 07/11/21 08:07 Dose: 324 mg Documented by: Atorvastatin Calcium (Atorvastatin 40 Mg Tab) 40 mg PO BEDTIME [facility] Last Admin: 07/10/21 20:14 Dose: 40 mg Documented by: Enoxaparin Sodium (Enoxaparin 40 Mg/0.4 Ml Syringe) 40 mg SUBCUT BEDTIME [facility] Last Admin: 07/10/21 20:14 Dose: 40 mg Documented by: Hydroxyzine Pamoate (Hydroxyzine Pamoate 50 Mg Cap) 50 mg PO BID PRN PRN Reason: Itching/insomnia Last Admin: 07/10/21 22:22 Dose: 50 mg Documented by: Lactulose (Lactulose Soln 10 Gm/15 Ml 15 Ml Ud Cup) 10 gm PO TID PRN PRN Reason: Constipation Losartan Potassium (Losartan 25 Mg Tab) 25 mg PO DAILY [facility] Last Admin: 07/11/21 08:07 Dose: 25 mg Documented by: Metoprolol Succinate (Metoprolol Succinate 25 Mg Tab.Er) 25 mg PO DAILY [facility] Mirtazapine (Mirtazapine 15 Mg Tab) 15 mg PO BEDTIME [facility] Last Admin: 07/10/21 20:14 Dose: 15 mg Documented by: Polyethylene Glycol (Polyethylene Glycol 3350 Powder 17 Gm Packet) 17 gm PO DAILY PRN PRN Reason: Constipation Sodium Chloride (Sodium Chloride 0.9% 10 Ml Syringe) 10 ml FLUSH ASDIRECTED PRN PRN Reason: Keep Vein Open Last Admin: 07/08/21 12:20 Dose: 10 ml Documented by: Discontinued Medications Aspirin (Aspirin 81 Mg Tab.Chew) 324 mg PO ONETIME ONE Stop: 07/08/21 15:04 Last Admin: 07/08/21 15:05 Dose: 324 mg Documented by: Atorvastatin Calcium (Atorvastatin 40 Mg Tab) 40 mg PO ONETIME ONE Stop: 07/08/21 15:04 Last Admin: 07/08/21 15:08 Dose: 40 mg Documented by: Hydroxyzine HCl (Hydroxyzine Hcl 25 Mg Tab) 25 mg PO BID PRN PRN Reason: Itching/insomnia Last Admin: 07/09/21 02:00 Dose: 25 mg Documented by: Sodium Chloride (Normal Saline) 1,000 mls @ 75 mls/hr IV ASDIRECTED ANJANA Last Admin: 07/10/21 02:44 Dose: 75 mls/hr Documented by: Iopamidol (Iopamidol 755 Mg/Ml 100 Ml Bottle) 85 ml IV . DIRECTED ONE Stop: 07/09/21 13:35 Last Admin: 07/09/21 14:43 Dose: 85 ml Documented by: Zolpidem Tartrate (Zolpidem 5 Mg Tab) 5 mg PO BEDTIME PRN PRN Reason: SLEEP Comments:: Patient is reliably oriented to person only. He is very weak. He needed quite a bit of help just to sit up in the bed. 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 He was able to hold onto my fingers as I pulled him up but he was not able to sit up without me going around behind him and pushing from the back. I had asked a question several times about his weakness and he gave me different answers. Patient does appear to be confused. - Exam Quality Assessment: Supplemental Oxygen, DVT Prophylaxis General: Cooperative, No Acute Distress, Lethargic HEENT: EOMI, Other (Patient appears to have mild exotropia on the left but this is not consistent) Neck: Supple Lungs: Decreased Breath Sounds, Crackles Cardiovascular: Regular Rate, Regular Rhythm GI/Abdominal Exam: Normal Bowel Sounds, Soft, Non-Tender Back Exam: Normal Inspection Extremities: Pedal Edema Peripheral Pulses: 2+: Radial (L), Radial (R), Dorsalis Pedis (L), Dorsalis Pedis (R) Skin: Warm, Dry Neurological: No New Focal Deficit, Other (This is the first day that I have ex amined this patient but given his strength in his right upper extremity and the fact that he could lift both legs off the bed with the sheets over his legs and that he states he is walking to the restroom with help he seems to be improving.) Psy/Mental Status: Alert - Patient Data Lab Results Last 24 hrs: Laboratory Results - last 24 hr 07/11/21 Range/Units 05:58 Sodium 140 (135-145) mmol/L Potassium 4.3 (3.5-5.3) mmol/L Chloride 105 (100-110) mmol/L Carbon Dioxide 26 (21-32) mmol/L BUN 20 H (7-18) mg/dL Creatinine 1.4 H (0.70-1.30) mg/dL Est Cr Clr Drug Dosing 39.28 mL/min Estimated GFR (MDRD) 48 L (>60) BUN/Creatinine Ratio 14.3 (9-20) Glucose 100 (80-116) mg/dL Calcium 8.4 L (8.6-10.2) mg/dL Result Diagrams: 07/08/21 12:32 07/11/21 05:58 Edil Results Last 24 hrs: Microbiology 07/08/21 21:30 Urine Culture - Final Urine, Voided MIXED POSITIVE ELLIE DAY 2 Sepsis Event Note - Evaluation Sepsis Screening Result: No Definite Risk - Focused Exam Vital Signs: Vital Signs Temp Pulse Resp BP BP Pulse Ox 07/11/21 08:07 178/83 H 07/11/21 04:00 36.4 C 74 18 164/90 H 97 07/11/21 00:00 36.4 C 78 18 152/78 H 97 - Problem List & Annotations (1) Acute right-sided weakness SNOMED Code(s): 281862341 Code(s): R53.1 - WEAKNESS Status: Acute Current Visit: Yes Onset Date: ~07/07/21 (2) CVA (cerebral vascular accident) SNOMED Code(s): 931673326 Code(s): I63.9 - CEREBRAL INFARCTION, UNSPECIFIED Status: Acute Current Visit: Yes Annotation/Comment:: MRI brain: left posterior frontal lobe & left parietal periatrial white matter consistent with acute infarct. CTA head: Severe focal stenosis of cavernous left ICA by soft & calcified atheromatous plaquing. Moderate to severe multifocal narrowing of the proximal posterior cerebral arteries bilaterally, likely atheromatous in origin. Vessels remain patent beyond the level of the crural cistern on each side. Multifocal irregularity involving the distal M1 segments bilaterally which is less severe but also likely on the basis of atheromatous disease. CTA neck: No significant atheromatous narrowing within the neck vasculature. Possible tracheomalacia incidentally noted. (3) Internal carotid artery stenosis SNOMED Code(s): 639855535 Code(s): I65.29 - OCCLUSION AND STENOSIS OF UNSPECIFIED CAROTID ARTERY Status: Chronic Current Visit: Yes Qualifiers: Laterality: left Qualified Code(s): I65.22 - Occlusion and stenosis of left carotid artery Annotation/Comment:: CTA head: Severe focal stenosis of cavernous left ICA by soft & calcified atheromatous plaquing. Moderate to severe multifocal narrowing of the proximal posterior cerebral arteries bilaterally, likely atheromatous in origin. Vessels remain patent beyond the level of the crural cistern on each side. Multifocal irregularity involving the distal M1 segments bilaterally which is less severe but also likely on the basis of atheromatous disease. CTA neck: No significant atheromatous narrowing within the neck vasculature. Possible tracheomalacia incidentally noted. (4) DNR (do not resuscitate) Status: Chronic Current Visit: Yes (5) History of prostate cancer SNOMED Code(s): 478899515 Code(s): Z85.46 - PERSONAL HISTORY OF MALIGNANT NEOPLASM OF PROSTATE Status: Chronic Current Visit: Yes Onset Date: ~08/2010 (6) Hypertension SNOMED Code(s): 73843108 Code(s): I10 - ESSENTIAL (PRIMARY) HYPERTENSION Status: Chronic Current Visit: Yes (7) Insomnia SNOMED Code(s): 308225481 Code(s): G47.00 - INSOMNIA, UNSPECIFIED Status: Chronic Current Visit: Yes (8) Tracheomalacia SNOMED Code(s): 29731350 Code(s): J39.8 - OTHER SPECIFIED DISEASES OF UPPER RESPIRATORY TRACT Status: Chronic Current Visit: Yes Annotation/Comment:: incidential finding on CTA neck. Has upper airway wheezing occasionally, continue DuoNebs as needed. (9) Acute renal failure SNOMED Code(s): 10934665 Code(s): N17.9 - ACUTE KIDNEY FAILURE, UNSPECIFIED Status: Acute Current Visit: No Annotation/Comment:: Cr 1.4, received constrast yesterday so will continue IVF. (10) Generalized weakness SNOMED Code(s): 59864594 Code(s): R53.1 - WEAKNESS Status: Acute Current Visit: No (11) Constipation SNOMED Code(s): 89960190 Code(s): K59.00 - CONSTIPATION, UNSPECIFIED Status: Chronic Current Visit: No Qualifiers: Constipation type: chronic idiopathic constipation Qualified Code(s): K59.04 - Chronic idiopathic constipation (12) Palliative care status SNOMED Code(s): 274725846 Code(s): Z51.5 - ENCOUNTER FOR PALLIATIVE CARE Status: Chronic Current V isit: No - Problem List Review Problem List Initiated/Reviewed/Updated: Yes - My Orders Last 24 Hours: My Active Orders 07/11/21 10:00 Metoprolol Succinate [Toprol XL] 25 mg PO DAILY - Plan Plan:: 1. Patient admitted to inpatient status for evaluation and treatment of what appears to be an acute CVA. Patient does have chronic bilateral lower extremity weakness, confusion. Patient has history consistent with chronic multiple CVAs with residual deficits. Continue current diet and treatments. Follow recommendations from OT/PT/speech. 2. Acute renal failure/ANNETTA: Patient's renal function seems to be stable at this point in time with creatinine 1.4-1.5 and GFR in the mid upper 40s. We will continue to monitor renal function but intermittently. 3. Insomnia: Patient was able to fall asleep last night using Remeron and hydroxyzine, continue current treatment. 4. DVT prophylaxis: Continue enoxaparin, 40 mg subcu nightly 5. Disposition: Likely discharge to [facility] for continued OT/PT and for intermediate care. Discharge likely on 07/14/2021
[2021-07-11] MEDS: Carboxymethylcellulose Sodium 0.5% Ophth Soln 15 ML Bottle EYEBOTH PRN (13:36)
[2021-07-11] MEDS: Enoxaparin 40 MG/0.4 ML Syringe SUBCUT SCH (21:32)
[2021-07-11] MEDS: Mirtazapine 15 MG Tab PO SCH (21:32)
[2021-07-11] MEDS: atorvaSTATin 40 MG Tab PO SCH (21:32)
[2021-07-11] MEDS: Acetaminophen 500 MG Tab PO PRN (21:59)
[2021-07-12] MEDS: Carboxymethylcellulose Sodium 0.5% Ophth Soln 15 ML Bottle EYEBOTH PRN ×2 (07:32→20:57)
[2021-07-12] MEDS: Losartan 25 MG Tab PO SCH (08:24)
[2021-07-12] MEDS: Aspirin 81 MG Tab.Chew PO SCH (08:24)
--- NOTE | 2021-07-12 08:34 | PCM.PN ---
- General Info Date of Service: 07/12/21 Admission Dx/Problem (Free Text): Admission Diagnosis/Problem Admission Diagnosis/Problem CVA, Cerebrovascular accident Subjective Update: Patient states that he feels well today and has no significant new complaints. He does continue to complain of significant weakness. He states that he lives at home with his prior to this admission and the only health they needed was Meals on Wheels. Functional Status: Reports: Pain Controlled, Tolerating Diet, Ambulating, Urinating - Review of Systems General: Reports: Weakness HEENT: Reports: No Symptoms Pulmonary: Reports: No Symptoms Cardiovascular: Reports: No Symptoms Gastrointestinal: Reports: No Symptoms Genitourinary: Reports: No Symptoms Musculoskeletal: Reports: No Symptoms Skin: Reports: No Symptoms Neurological: Reports: Difficulty Walking, Weakness Psychiatric: Reports: No Symptoms - Patient Data Vitals - Most Recent: Last Vital Signs Temp 36.4 C 07/12/21 07:00 Pulse 62 07/12/21 07:00 Resp 16 07/12/21 07:00 BP 167/79 H 07/12/21 08:24 Pulse Ox 98 07/12/21 07:00 Weight - Most Recent: 102.285 kg Med Orders - Current: Current Medications Acetaminophen (Acetaminophen 500 Mg Tab) 500 mg PO Q6H PRN PRN Reason: Pain Last Admin: 07/11/21 21:59 Dose: 500 mg Documented by: Albuterol/Ipratropium (Albuterol/Ipratropium 3.0-0.5 Mg/3 Ml Neb Soln) 3 ml NEB Q6H PRN PRN Reason: Shortness of Breath Last Admin: 07/09/21 09:38 Dose: 3 ml Documented by: Artificial Tears (Carboxymethylcellulose Sodium 0.5% Ophth Soln 15 Ml Bottle) 0 ml EYEBOTH QID PRN PRN Reason: Dry Eyes Last Admin: 07/12/21 07:32 Dose: 1 drop Documented by: Aspirin (Aspirin 81 Mg Tab.Chew) 324 mg PO DAILY ANJANA Last Admin: 07/12/21 08:24 Dose: 324 mg Documented by: Atorvastatin Calcium (Atorvastatin 40 Mg Tab) 40 mg PO BEDTIME ANJANA Last Admin: 07/11/21 21:32 Dose: 40 mg Documented by: Enoxaparin Sodium (Enoxaparin 40 Mg/0.4 Ml Syringe) 40 mg SUBCUT BEDTIME ANJANA Last Admin: 12/24/21 21:32 Dose: 40 mg Documented by: Hydroxyzine Pamoate (Hydroxyzine Pamoate 50 Mg Cap) 50 mg PO BID PRN PRN Reason: Itching/insomnia Last Admin: 07/11/21 21:59 Dose: 50 mg Documented by: Lactulose (Lactulose Soln 10 Gm/15 Ml 15 Ml Ud Cup) 10 gm PO TID PRN PRN Reason: Constipation Losartan Potassium (Losartan 25 Mg Tab) 25 mg PO DAILY [facility] Last Admin: 07/12/21 08:24 Dose: 25 mg Documented by: Metoprolol Succinate (Metoprolol Succinate 50 Mg Tab.Er) 50 mg PO DAILY [facility] Mirtazapine (Mirtazapine 15 Mg Tab) 15 mg PO BEDTIME [facility] Last Admin: 07/11/21 21:32 Dose: 15 mg Documented by: Ofloxacin (Ofloxacin 0.3% Ophth Soln 5 Ml Bottle) 1 ml EYEBOTH BID [facility] Polyethylene Glycol (Polyethylene Glycol 3350 Powder 17 Gm Packet) 17 gm PO DAILY PRN PRN Reason: Constipation Sodium Chloride (Sodium Chloride 0.9% 10 Ml Syringe) 10 ml FLUSH ASDIRECTED PRN PRN Reason: Keep Vein Open Last Admin: 07/11/21 13:47 Dose: 10 ml Documented by: Discontinued Medications Aspirin (Aspirin 81 Mg Tab.Chew) 324 mg PO ONETIME ONE Stop: 07/08/21 15:04 Last Admin: 07/08/21 15:05 Dose: 324 mg Documented by: Atorvastatin Calcium (Atorvastatin 40 Mg Tab) 40 mg PO ONETIME ONE Stop: 07/08/21 15:04 Last Admin: 07/08/21 15:08 Dose: 40 mg Documented by: Hydroxyzine HCl (Hydroxyzine Hcl 25 Mg Tab) 25 mg PO BID PRN PRN Reason: Itching/insomnia Last Admin: 07/09/21 02:00 Dose: 25 mg Documented by: Sodium Chloride (Normal Saline) 1,000 mls @ 75 mls/hr IV ASDIRECTED [facility] Last Admin: 07/10/21 02:44 Dose: 75 mls/hr Documented by: Iopamidol (Iopamidol 755 Mg/Ml 100 Ml Bottle) 85 ml IV . DIRECTED ONE Stop: 07/09/21 13:35 Last Admin: 07/09/21 14:43 Dose: 85 ml Documented by: Metoprolol Succinate (Metoprolol Succinate 25 Mg Tab.Er) 25 mg PO DAILY ANJANA Last Admin: 07/11/21 11:35 Dose: 25 mg Documented by: Zolpidem Tartrate (Zolpidem 5 Mg Tab) 5 mg PO BEDTIME PRN PRN Reason: SLEEP Comments:: Patient was sitting in bedside chair and had just finished breakfast when I entered the room. He was able to stand without assistance. However, it took him almost a full minute and he had to readjust his seating position and use both arms to stand. He was not able to stand completely erect and needed to hold my hand while I auscultated his lungs. He admitted to me during exam that he feels very weak - Exam Quality Assessment: Supplemental Oxygen, DVT Prophylaxis General: Alert, Oriented, Cooperative, No Acute Distress HEENT: Other (Bilateral scleral erythema, left greater than right, significant but clear discharge) Lungs: Decreased Breath Sounds, Crackles Cardiovascular: Regular Rate, Regular Rhythm GI/Abdominal Exam: Normal Bowel Sounds, Non-Tender Back Exam: Normal Inspection Extremities: Pedal Edema Skin: Warm, Dry Neurological: No New Focal Deficit Psy/Mental Status: Alert, Normal Affect, Normal Mood - Patient Data Result Diagrams: 07/08/21 12:32 07/11/21 05:58 Sepsis Event Note - Evaluation Sepsis Screening Result: No Definite Risk - Focused Exam Vital Signs: Vital Signs Temp Pulse Resp BP BP Pulse Ox 07/12/21 08:24 167/79 H 07/12/21 07:00 36.4 C 62 16 167/79 H 98 07/12/21 00:00 36.6 C 64 16 174/84 H 97 - Problem List & Annotations (1) Acute right-sided weakness SNOMED Code(s): 828832848 Code(s): R53.1 - WEAKNESS Status: Acute Current Visit: Yes Onset Date: ~07/07/21 (2) CVA (cerebral vascular accident) SNOMED Code(s): 692971043 Code(s): I63.9 - CEREBRAL INFARCTION, UNSPECIFIED Status: Acute Current Visit: Yes Annotation/Comment:: MRI brain: left posterior frontal lobe & left parietal periatrial white matter consistent with acute infarct. CTA head: Severe focal stenosis of cavernous left ICA by soft & calcified atheromatous plaquing. Moderate to severe multifocal narrowing of the proximal posterior cerebral arteries bilaterally, likely atheromatous in origin. Vessels remain patent beyond the level of the crural cistern on each side. Multifocal irregularity involving the distal M1 segments bilaterally which is less severe but also likely on the basis of atheromatous disease. CTA neck: No significant atheromatous narrowing within the neck vasculature. Possible tracheomalacia incidentally noted. (3) Internal carotid artery stenosis SNOMED Code(s): 766876327 Code(s): I65.29 - OCCLUSION AND STENOSIS OF UNSPECIFIED CAROTID ARTERY Status: Chronic Current Visit: Yes Qualifiers: Laterality: left Qualified Code(s): I65.22 - Occlusion and stenosis of left carotid artery Annotation/Comment:: CTA head: Severe focal stenosis of cavernous left ICA by soft & calcified atheromatous plaquing. Moderate to severe multifocal narrowing of the proximal posterior cerebral arteries bilaterally, likely atheromatous in origin. Vessels remain patent beyond the level of the crural cistern on each side. Multifocal irregularity involving the distal M1 segments bilaterally which is less severe but also likely on the basis of atheromatous disease. CTA neck: No significant atheromatous narrowing within the neck vasculature. Possible tracheomalacia incidentally noted. (4) DNR (do not resuscitate) Status: Chronic Current Visit: Yes (5) History of prostate cancer SNOMED Code(s): 230190212 Code(s): Z85.46 - PERSONAL HISTORY OF MALIGNANT NEOPLASM OF PROSTATE Status: Chronic Current Visit: Yes Onset Date: ~08/2010 (6) Hypertension SNOMED Code(s): 27805107 Code(s): I10 - ESSENTIAL (PRIMARY) HYPERTENSION Status: Chronic Current Visit: Yes (7) Insomnia SNOMED Code(s): 625387378 Code(s): G47.00 - INSOMNIA, UNSPECIFIED Status: Chronic Current Visit: Yes (8) Tracheomalacia SNOMED Code(s): 99000303 Code(s): J39.8 - OTHER SPECIFIED DISEASES OF UPPER RESPIRATORY TRACT Status: Chronic Current Visit: Yes Annotation/Comment:: incidential finding on CTA neck. Has upper airway wheezing occasionally, continue DuoNebs as needed. (9) Acute renal failure SNOMED Code(s): 18597681 Code(s): N17.9 - ACUTE KIDNEY FAILURE, UNSPECIFIED Status: Acute Current Visit: No Annotation/Comment:: Cr 1.4, received constrast yesterday so will continue IVF. (10) Generalized weakness SNOMED Code(s): 43696114 Code(s): R53.1 - WEAKNESS Status: Acute Current Visit: No (11) Constipation SNOMED Code(s): 98455169 Code(s): K59.00 - CONSTIPATION, UNSPECIFIED Status: Chronic Current Visit: No Qualifiers: Constipation type: chronic idiopathic constipation Qualified Code(s): K59.04 - Chronic idiopathic constipation (12) Palliative care status SNOMED Code(s): 407289640 Code(s): Z51.5 - ENCOUNTER FOR PALLIATIVE CARE Status: Chronic Current Visit: No (13) Conjunctivitis SNOMED Code(s): 1801386 Code(s): H10.9 - UNSPECIFIED CONJUNCTIVITIS Status: Acute Current Visit: Yes - Problem List Review Problem List Initiated/Reviewed/Updated: Yes - My Orders Last 24 Hours: My Active Orders 07/12/21 09:00 Metoprolol Succinate [Toprol XL] 50 mg PO DAILY Ofloxacin [Ocuflox 0.3% Ophth Soln] 1 ml EYEBOTH BID 07/13/21 BASIC METABOLIC PANEL,BMP [CHEM] Routine 07/14/21 CORONAVIRUS COVID-19 DAVIS [MOLEC] Routine - Plan Plan:: 1. Patient admitted to inpatient status for evaluation and treatment of what appears to be an acute CVA. Patient does have chronic bilateral lower extremity weakness, confusion. Patient has history consistent with chronic multiple CVAs with residual deficits. Continue current diet and treatments. Follow recommendations from OT/PT/speech. 2. Acute renal failure/ANNETTA: Patient's renal function seems to be stable at this point in time with creatinine 1.4-1.5 and GFR in the mid upper 40s. We will continue to monitor renal function but intermittently. 3. Insomnia: Patient was able to fall asleep last night using Remeron and hydroxyzine, continue current treatment. 4. Hypertension: Started metoprolol succinate 25 mg yesterday with only mild improvement in blood pressure. Patient continues to have hypertension in the 170s. We will increase to 50 mg metoprolol succinate today and continue to monitor blood pressure, heart rate. 4. DVT prophylaxis: Continue enoxaparin, 40 mg subcu nightly 5. Disposition: Likely discharge to [facility] for continued OT/PT and for residential care. Discharge likely on 07/14/2021
[2021-07-12] MEDS ORDERED: Metoprolol Succinate 50 MG Tab.ER PO SCH (09:00)
[2021-07-12] MEDS: Ofloxacin 0.3% Ophth Soln 5 ML Bottle EYEBOTH SCH ×2 (11:12→20:50)
[2021-07-12] MEDS: atorvaSTATin 40 MG Tab PO SCH (20:49)
[2021-07-12] MEDS: Enoxaparin 40 MG/0.4 ML Syringe SUBCUT SCH (20:49)
[2021-07-12] MEDS: Mirtazapine 15 MG Tab PO SCH (20:50)
[2021-07-13] MEDS: Aspirin 81 MG Tab.Chew PO SCH (08:04)
[2021-07-13] MEDS: Ofloxacin 0.3% Ophth Soln 5 ML Bottle EYEBOTH SCH ×2 (08:05→20:39)
[2021-07-13] MEDS: Losartan 25 MG Tab PO SCH (08:05)
[2021-07-13] MEDS: Carboxymethylcellulose Sodium 0.5% Ophth Soln 15 ML Bottle EYEBOTH PRN ×2 (08:05→16:51)
[2021-07-13] MEDS ORDERED: Clopidogrel 75 MG Tab PO ONE (11:04)
--- NOTE | 2021-07-13 11:14 | PCM.PN ---
- General Info Date of Service: 07/13/21 Admission Dx/Problem (Free Text): Admission Diagnosis/Problem Admission Diagnosis/Problem CVA, Cerebrovascular accident Subjective Update: Patient states that he feels well today and has no significant new complaints. Functional Status: Reports: Pain Controlled, Tolerating Diet, Ambulating, Urinating - Review of Systems General: Reports: Weakness HEENT: Reports: No Symptoms Pulmonary: Reports: No Symptoms Cardiovascular: Reports: No Symptoms Gastrointestinal: Reports: No Symptoms Genitourinary: Reports: No Symptoms Musculoskeletal: Reports: No Symptoms Skin: Reports: No Symptoms Neurological: Reports: Difficulty Walking, Weakness Psychiatric: Reports: No Symptoms - Patient Data Vitals - Most Recent: Last Vital Signs Temp 36.9 C 07/13/21 06:50 Pulse 68 07/13/21 06:50 Resp 16 07/13/21 06:50 BP 170/88 H 07/13/21 08:05 Pulse Ox 95 07/13/21 06:50 Weight - Most Recent: 102.285 kg Lab Results Last 24 Hours: Laboratory Results - last 24 hr 07/13/21 Range/Units 06:15 Sodium 139 (135-145) mmol/L Potassium 4.5 (3.5-5.3) mmol/L Chloride 105 (100-110) mmol/L Carbon Dioxide 29 (21-32) mmol/L BUN 22 H (7-18) mg/dL Creatinine 1.4 H (0.70-1.30) mg/dL Est Cr Clr Drug Dosing 39.28 mL/min Estimated GFR (MDRD) 48 L (>60) BUN/Creatinine Ratio 15.7 (9-20) Glucose 99 (80-116) mg/dL Calcium 9.1 (8.6-10.2) mg/dL Med Orders - Current: Current Medications Acetaminophen (Acetaminophen 500 Mg Tab) 500 mg PO Q6H PRN PRN Reason: Pain Last Admin: 07/11/21 21:59 Dose: 500 mg Documented by: Albuterol/Ipratropium (Albuterol/Ipratropium 3.0-0.5 Mg/3 Ml Neb Soln) 3 ml NEB Q6H PRN PRN Reason: Shortness of Breath Last Admin: 07/09/21 09:38 Dose: 3 ml Documented by: Artificial Tears (Carboxymethylcellulose Sodium 0.5% Ophth Soln 15 Ml Bottle) 0 ml EYEBOTH QID PRN PRN Reason: Dry Eyes Last Admin: 07/13/21 08:05 Dose: 1 drop Documented by: Aspirin (Aspirin 81 Mg Tab.Ec) 81 mg PO BEDTIME [facility] Atorvastatin Calcium (Atorvastatin 40 Mg Tab) 40 mg PO BEDTIME [facility] Last Admin: 07/12/21 20:49 Dose: 40 mg Documented by: Clopidogrel Bisulfate (Clopidogrel 75 Mg Tab) 75 mg PO DAILY [facility] Stop: 09/29/21 23:00 Enoxaparin Sodium (Enoxaparin 80 Mg/0.8 Ml Syringe) 80 mg SUBCUT BEDTIME [facility] Guaifenesin (Guaifenesin 600 Mg Tab.Er) 600 mg PO BID [facility] Hydroxyzine Pamoate (Hydroxyzine Pamoate 50 Mg Cap) 50 mg PO BID PRN PRN Reason: Itching/insomnia Last Admin: 07/12/21 23:00 Dose: 50 mg Documented by: Lactulose (Lactulose Soln 10 Gm/15 Ml 15 Ml Ud Cup) 10 gm PO TID PRN PRN Reason: Constipation Losartan Potassium (Losartan 25 Mg Tab) 25 mg PO DAILY [facility] Last Admin: 07/13/21 08:05 Dose: 25 mg Documented by: Mirtazapine (Mirtazapine 15 Mg Tab) 15 mg PO BEDTIME [facility] Last Admin: 07/12/21 20:50 Dose: 15 mg Documented by: Ofloxacin (Ofloxacin 0.3% Ophth Soln 5 Ml Bottle) 0 ml EYEBOTH BID [facility] Last Admin: 07/13/21 08:05 Dose: 1 drop Documented by: Polyethylene Glycol (Polyethylene Glycol 3350 Powder 17 Gm Packet) 17 gm PO DAILY PRN PRN Reason: Constipation Sodium Chloride (Sodium Chloride 0.9% 10 Ml Syringe) 10 ml FLUSH ASDIRECTED PRN PRN Reason: Keep Vein Open Last Admin: 07/11/21 13:47 Dose: 10 ml Documented by: Discontinued Medications Aspirin (Aspirin 81 Mg Tab.Chew) 324 mg PO ONETIME ONE Stop: 07/08/21 15:04 Last Admin: 07/08/21 15:05 Dose: 324 mg Documented by: Aspirin (Aspirin 81 Mg Tab.Chew) 324 mg PO DAILY [facility] Last Admin: 07/13/21 08:04 Dose: 324 mg Documented by: Atorvastatin Calcium (Atorvastatin 40 Mg Tab) 40 mg PO ONETIME ONE Stop: 07/08/21 15:04 Last Admin: 07/08/21 15:08 Dose: 40 mg Documented by: Clopidogrel Bisulfate (Clopidogrel 75 Mg Tab) 300 mg PO ONETIME ONE Stop: 07/13/21 11:05 Enoxaparin Sodium (Enoxaparin 40 Mg/0.4 Ml Syringe) 40 mg SUBCUT BEDTIME [facility] Last Admin: 07/12/21 20:49 Dose: 40 mg Documented by: Hydroxyzine HCl (Hydroxyzine Hcl 25 Mg Tab) 25 mg PO BID PRN PRN Reason: Itching/insomnia Last Admin: 07/09/21 02:00 Dose: 25 mg Documented by: Sodium Chloride (Normal Saline) 1,000 mls @ 75 mls/hr IV ASDIRECTED [facility] Last Admin: 07/10/21 02:44 Dose: 75 mls/hr Documented by: Iopamidol (Iopamidol 755 Mg/Ml 100 Ml Bottle) 85 ml IV . DIRECTED ONE Stop: 07/09/21 13:35 Last Admin: 07/09/21 14:43 Dose: 85 ml Documented by: Metoprolol Succinate (Metoprolol Succinate 25 Mg Tab.Er) 25 mg PO DAILY [facility] Last Admin: 07/11/21 11:35 Dose: 25 mg Documented by: Metoprolol Succinate (Metoprolol Succinate 50 Mg Tab.Er) 50 mg PO DAILY [facility] Last Admin: 07/12/21 11:15 Dose: Not Given Documented by: Zolpidem Tartrate (Zolpidem 5 Mg Tab) 5 mg PO BEDTIME PRN PRN Reason: SLEEP Comments:: Patient was resting in bed with family members present. He is awake and alert but remains confused. I believe this is baseline dementia. He has no acute complaints today - Exam Quality Assessment: Supplemental Oxygen, DVT Prophylaxis General: Alert, Cooperative, No Acute Distress HEENT: EOMI, Other (Scleral erythema is improved from yesterday) Neck: Supple Lungs: Decreased Breath Sounds, Crackles Cardiovascular: Regular Rate, Regular Rhythm GI/Abdominal Exam: Normal Bowel Sounds, Non-Tender Back Exam: Normal Inspection Extremities: No Pedal Edema Peripheral Pulses: 1+: Dorsalis Pedis (L), Dorsalis Pedis (R), 2+: Radial (L), Radial (R) Skin: Warm, Dry Neurological: No New Focal Deficit Psy/Mental Status: Alert, Normal Affect, Normal Mood - Patient Data Lab Results Last 24 hrs: Laboratory Results - last 24 hr 07/13/21 Range/Units 06:15 Sodium 139 (135-145) mmol/L Potassium 4.5 (3.5-5.3) mmol/L Chloride 105 (100-110) mmol/L Carbon Dioxide 29 (21-32) mmol/L BUN 22 H (7-18) mg/dL Creatinine 1.4 H (0.70-1.30) mg/dL Est Cr Clr Drug Dosing 39.28 mL/min Estimated GFR (MDRD) 48 L (>60) BUN/Creatinine Ratio 15.7 (9-20) Glucose 99 (80-116) mg/dL Calcium 9.1 (8.6-10.2) mg/dL Result Diagrams: 07/08/21 12:32 07/13/21 06:15 Sepsis Event Note - Evaluation Sepsis Screening Result: No Definite Risk - Focused Exam Vital Signs: Vital Signs Temp Pulse Resp BP BP Pulse Ox 07/13/21 08:05 170/88 H 07/13/21 06:50 36.9 C 68 16 138/74 95 07/12/21 23:16 36.8 C 76 16 160/84 H 96 - Problem List & Annotations (1) Acute right-sided weakness SNOMED Code(s): 981009364 Code(s): R53.1 - WEAKNESS Status: Acute Current Visit: Yes Onset Date: ~07/07/21 (2) CVA (cerebral vascular accident) SNOMED Code(s): 770397014 Code(s): I63.9 - CEREBRAL INFARCTION, UNSPECIFIED Status: Acute Current Visit: Yes Annotation/Comment:: MRI brain: left posterior frontal lobe & left parietal periatrial white matter consistent with acute infarct. CTA head: Severe focal stenosis of cavernous left ICA by soft & calcified atheromatous plaquing. Moderate to severe multifocal narrowing of the proximal posterior cerebral arteries bilaterally, likely atheromatous in origin. Vessels remain patent beyond the level of the crural cistern on each side. Multifocal irregularity involving the distal M1 segments bilaterally which is less severe but also likely on the basis of atheromatous disease. CTA neck: No significant atheromatous narrowing within the neck vasculature. Possible tracheomalacia incidentally noted. (3) Internal carotid artery stenosis SNOMED Code(s): 952565673 Code(s): I65.29 - OCCLUSION AND STENOSIS OF UNSPECIFIED CAROTID ARTERY Status: Chronic Current Visit: Yes Qualifiers: Laterality: left Qualified Code(s): I65.22 - Occlusion and stenosis of left carotid artery Annotation/Comment:: CTA head: Severe focal stenosis of cavernous left ICA by soft & calcified atheromatous plaquing. Moderate to severe multifocal narrowing of the proximal posterior cerebral arteries bilaterally, likely atheromatous in origin. Vessels remain patent beyond the level of the crural cistern on each side. Multifocal irregularity involving the distal M1 segments bilaterally which is less severe but also likely on the basis of atheromatous disease. CTA neck: No significant atheromatous narrowing within the neck vasculature. Possible tracheomalacia incidentally noted. (4) DNR (do not resuscitate) Status: Chronic Current Visit: Yes (5) History of prostate cancer SNOMED Code(s): 891090370 Code(s): Z85.46 - PERSONAL HISTORY OF MALIGNANT NEOPLASM OF PROSTATE Status: Chronic Current Visit: Yes Onset Date: ~08/2010 (6) Hypertension SNOMED Code(s): 26302324 Code(s): I10 - ESSENTIAL (PRIMARY) HYPERTENSION Status: Chronic Current Visit: Yes (7) Insomnia SNOMED Code(s): 930812302 Code(s): G47.00 - INSOMNIA, UNSPECIFIED Status: Chronic Current Visit: Yes (8) Tracheomalacia SNOMED Code(s): 69037753 Code(s): J39.8 - OTHER SPECIFIED DISEASES OF UPPER RESPIRATORY TRACT Status: Chronic Current Visit: Yes Annotation/Comment:: incidential finding on CTA neck. Has upper airway wheezing occasionally, continue DuoNebs as needed. (9) Acute renal failure SNOMED Code(s): 22964926 Code(s): N17.9 - ACUTE KIDNEY FAILURE, UNSPECIFIED Status: Acute Current Visit: No Annotation/Comment:: Cr 1.4, received constrast yesterday so will continue IVF. (10) Generalized weakness SNOMED Code(s): 82357730 Code(s): R53.1 - WEAKNESS Status: Acute Current Visit: No (11) Constipation SNOMED Code(s): 26774334 Code(s): K59.00 - CONSTIPATION, UNSPECIFIED Status: Chronic Current Visit: No Qualifiers: Constipation type: chronic idiopathic constipation Qualified Code(s): K59.04 - Chronic idiopathic constipation (12) Palliative care status SNOMED Code(s): 508598075 Code(s): Z51.5 - ENCOUNTER FOR PALLIATIVE CARE Status: Chronic Current Visit: No (13) Conjunctivitis SNOMED Code(s): 7469333 Code(s): H10.9 - UNSPECIFIED CONJUNCTIVITIS Status: Acute Current Visit: Yes - Problem List Review Problem List Initiated/Reviewed/Updated: Yes - My Orders Last 24 Hours: My Active Orders 07/13/21 10:15 guaiFENesin [Mucinex] 600 mg PO BID 07/13/21 21:00 Aspirin 81 mg PO BEDTIME Enoxaparin [Lovenox] 80 mg SUBCUT BEDTIME 07/14/21 05:00 CORONAVIRUS COVID-19 DAVIS [MOLEC] Routine 07/14/21 09:00 Clopidogrel [Plavix] 75 mg PO DAILY - Plan Plan:: 1. Patient admitted to inpatient status for evaluation and treatment of what appears to be an acute CVA. Patient does have chronic bilateral lower extremity weakness, confusion. Patient has history consistent with chronic multiple CVAs with residual deficits. Continue current diet and treatments. Follow recommendations from OT/PT/speech. 2. Acute renal failure/ANNETTA: Patient's renal function seems to be stable at this point in time with creatinine 1.4-1.5 and GFR in the mid upper 40s. We will continue to monitor renal function but intermittently. 3. Insomnia: Patient was able to fall asleep last night using Remeron and hydroxyzine, continue current treatment. 4. Hypertension: Started metoprolol succinate 25 mg yesterday with only mild improvement in blood pressure. Patient continues to have hypertension in the 170s. We will increase to 50 mg metoprolol succinate today and continue to monitor blood pressure, heart rate. 4. DVT prophylaxis: Continue enoxaparin, 40 mg subcu nightly 5. Disposition: Likely discharge to [facility] for continued OT/PT and for group home care. Discharge likely on 07/14/2021 Note that I spoke with interventional neurology on the phone and they recommended dual antiplatelet therapy. We will load the patient with 300 mg Plavix today and reduce aspirin to 81 mg daily. Patient will remain on dual a ntiplatelet therapy until September 29, 2021. He will then take a full-strength, 3 and 24 mg aspirin daily.
[2021-07-13] MEDS: guaiFENesin 600 MG Tab.ER PO SCH ×2 (11:17→20:39)
[2021-07-13] MEDS: Aspirin 81 MG Tab.EC PO SCH (20:39)
[2021-07-13] MEDS: Mirtazapine 15 MG Tab PO SCH (20:39)
[2021-07-13] MEDS: atorvaSTATin 40 MG Tab PO SCH (20:43)
[2021-07-13] MEDS: Enoxaparin 80 MG/0.8 ML Syringe SUBCUT SCH (20:44)
[2021-07-14] MEDS: Clopidogrel 75 MG Tab PO SCH (08:29)
[2021-07-14] MEDS: Losartan 25 MG Tab PO SCH (08:29)
[2021-07-14] MEDS: guaiFENesin 600 MG Tab.ER PO SCH ×2 (08:29→21:07)
[2021-07-14] MEDS: Clotrimazole 1% Crm 30 GM Tube TOP SCH ×2 (08:30→21:06)
[2021-07-14] MEDS: Ofloxacin 0.3% Ophth Soln 5 ML Bottle EYEBOTH SCH ×2 (08:30→21:07)
--- NOTE | 2021-07-14 09:09 | PCM.PN ---
- General Info Date of Service: 07/14/21 Admission Dx/Problem (Free Text): Admission Diagnosis/Problem Admission Diagnosis/Problem CVA, Cerebrovascular accident Subjective Update: Patient states that he did not sleep well last night, he had to get up and go to the bathroom several times. He continues to complain of a mild cough. Functional Status: Reports: Pain Controlled, Tolerating Diet, Ambulating, Urinating - Review of Systems General: Reports: Weakness HEENT: Reports: No Symptoms Pulmonary: Reports: Cough Cardiovascular: Reports: No Symptoms Gastrointestinal: Reports: No Symptoms Genitourinary: Reports: No Symptoms Musculoskeletal: Reports: No Symptoms Skin: Reports: No Symptoms Neurological: Reports: Difficulty Walking, Weakness Psychiatric: Reports: No Symptoms - Patient Data Vitals - Most Recent: Last Vital Signs Temp 36.4 C 07/14/21 06:31 Pulse 72 07/14/21 06:31 Resp 20 07/14/21 06:31 BP 163/76 H 07/14/21 08:29 Pulse Ox 97 07/14/21 06:31 Weight - Most Recent: 102.285 kg I&O - Last 24 Hours: Intake & Output 07/13/21 07/14/21 07/14/21 22:59 06:59 14:59 Intake Total 600 Balance 600 Lab Results Last 24 Hours: Laboratory Results - last 24 hr 07/14/21 07/14/21 Range/Units 06:15 07:00 WBC 7.7 (3.2-10.1) x10-3/uL RBC 4.89 (3.90-5.90) x10(6)uL Hgb 13.9 (12.9-17.7) g/dL Hct 41.7 (38.3-50.1) % MCV 85.2 (80.8-98.7) fL MCH 28.3 (27.0-33.3) pg MCHC 33.3 (28.7-35.3) g/dL RDW 14.6 (12.4-15.0) % Plt Count 164 (117-477) x10(3)uL MPV 9.1 (6.7-11.0) fL Neut % (Auto) 57.1 (40.3-71.8) % Lymph % (Auto) 29.9 (15.8-45.3) % [place] % (Auto) 9.2 (5.5-15.2) % Eos % (Auto) 3.2 (0.1-6.8) % Baso % (Auto) 0.6 (0.3-3.8) % Neut # (Auto) 4.4 (1.7-6.9) x10-3/uL Lymph # (Auto) 2.3 (0.5-4.5) x10-3/uL [place] # (Auto) 0.7 (0.0-1.2) x10-3/uL Eos # (Auto) 0.2 (0.0-0.6) x10-3/uL Baso # (Auto) 0.0 (0.0-0.3) x10-3/uL SARS-CoV-2 RNA (DAVIS) Negative (NEGATIVE) Med Orders - Current: Current Medications Acetaminophen (Acetaminophen 500 Mg Tab) 500 mg PO Q6H PRN PRN Reason: Pain Last Admin: 07/11/21 21:59 Dose: 500 mg Documented by: Albuterol/Ipratropium (Albuterol/Ipratropium 3.0-0.5 Mg/3 Ml Neb Soln) 3 ml NEB Q6H PRN PRN Reason: Shortness of Breath Last Admin: 07/09/21 09:38 Dose: 3 ml Documented by: Artificial Tears (Carboxymethylcellulose Sodium 0.5% Ophth Soln 15 Ml Bottle) 0 ml EYEBOTH QID PRN PRN Reason: Dry Eyes Last Admin: 07/13/21 16:51 Dose: 1 drop Documented by: Aspirin (Aspirin 81 Mg Tab.Ec) 81 mg PO BEDTIME [facility] Last Admin: 07/13/21 20:39 Dose: 81 mg Documented by: Atorvastatin Calcium (Atorvastatin 40 Mg Tab) 80 mg PO BEDTIME [facility] Last Admin: 07/13/21 20:43 Dose: 80 mg Documented by: Clopidogrel Bisulfate (Clopidogrel 75 Mg Tab) 75 mg PO DAILY [facility] Stop: 09/29/21 23:00 Last Admin: 07/14/21 08:29 Dose: 75 mg Documented by: Clotrimazole (Clotrimazole 1% Crm 30 Gm Tube) 0 gm TOP BID [facility] Last Admin: 07/14/21 08:30 Dose: 30 gm Documented by: Enoxaparin Sodium (Enoxaparin 80 Mg/0.8 Ml Syringe) 80 mg SUBCUT BEDTIME [facility] Last Admin: 07/13/21 20:44 Dose: 80 mg Documented by: Guaifenesin (Guaifenesin 600 Mg Tab.Er) 600 mg PO BID [facility] Last Admin: 07/14/21 08:29 Dose: 600 mg Documented by: Hydroxyzine Pamoate (Hydroxyzine Pamoate 50 Mg Cap) 50 mg PO BID PRN PRN Reason: Itching/insomnia Last Admin: 07/13/21 22:40 Dose: 50 mg Documented by: Lactulose (Lactulose Soln 10 Gm/15 Ml 15 Ml Ud Cup) 10 gm PO TID PRN PRN Reason: Constipation Losartan Potassium (Losartan 25 Mg Tab) 25 mg PO DAILY [facility] Last Admin: 07/14/21 08:29 Dose: 25 mg Documented by: Mirtazapine (Mirtazapine 15 Mg Tab) 15 mg PO BEDTIME [facility] Last Admin: 07/13/21 20:39 Dose: 15 mg Documented by: Ofloxacin (Ofloxacin 0.3% Ophth Soln 5 Ml Bottle) 0 ml EYEBOTH BID [facility] Last Admin: 07/14/21 08:30 Dose: 1 drop Documented by: Polyethylene Glycol (Polyethylene Glycol 3350 Powder 17 Gm Packet) 17 gm PO DA VICKY PRN PRN Reason: Constipation Sodium Chloride (Sodium Chloride 0.9% 10 Ml Syringe) 10 ml FLUSH ASDIRECTED PRN PRN Reason: Keep Vein Open Last Admin: 07/11/21 13:47 Dose: 10 ml Documented by: Discontinued Medications Aspirin (Aspirin 81 Mg Tab.Chew) 324 mg PO ONETIME ONE Stop: 07/08/21 15:04 Last Admin: 07/08/21 15:05 Dose: 324 mg Documented by: Aspirin (Aspirin 81 Mg Tab.Chew) 324 mg PO DAILY [facility] Last Admin: 07/13/21 08:04 Dose: 324 mg Documented by: Atorvastatin Calcium (Atorvastatin 40 Mg Tab) 40 mg PO ONETIME ONE Stop: 07/08/21 15:04 Last Admin: 07/08/21 15:08 Dose: 40 mg Documented by: Atorvastatin Calcium (Atorvastatin 40 Mg Tab) 40 mg PO BEDTIME [facility] Last Admin: 07/12/21 20:49 Dose: 40 mg Documented by: Clopidogrel Bisulfate (Clopidogrel 75 Mg Tab) 300 mg PO ONETIME ONE Stop: 07/13/21 11:05 Last Admin: 07/13/21 11:17 Dose: 300 mg Documented by: Enoxaparin Sodium (Enoxaparin 40 Mg/0.4 Ml Syringe) 40 mg SUBCUT BEDTIME [facility] Last Admin: 07/12/21 20:49 Dose: 40 mg Documented by: Hydroxyzine HCl (Hydroxyzine Hcl 25 Mg Tab) 25 mg PO BID PRN PRN Reason: Itching/insomnia Last Admin: 07/09/21 02:00 Dose: 25 mg Documented by: Sodium Chloride (Normal Saline) 1,000 mls @ 75 mls/hr IV ASDIRECTED [facility] Last Admin: 07/10/21 02:44 Dose: 75 mls/hr Documented by: Iopamidol (Iopamidol 755 Mg/Ml 100 Ml Bottle) 85 ml IV . DIRECTED ONE Stop: 07/09/21 13:35 Last Admin: 07/09/21 14:43 Dose: 85 ml Documented by: Metoprolol Succinate (Metoprolol Succinate 25 Mg Tab.Er) 25 mg PO DAILY [facility] Last Admin: 07/11/21 11:35 Dose: 25 mg Documented by: Metoprolol Succinate (Metoprolol Succinate 50 Mg Tab.Er) 50 mg PO DAILY [facility] Last Admin: 07/12/21 11:15 Dose: Not Given Documented by: Zolpidem Tartrate (Zolpidem 5 Mg Tab) 5 mg PO BEDTIME PRN PRN Reason: SLEEP Comments:: Patient was lying in the bed right lateral, awake, alert - Exam Quality Assessment: Supplemental Oxygen, DVT Prophylaxis General: Alert, Oriented, Cooperative, No Acute Distress HEENT: EOMI, Other (No obvious scleral erythema at this time bilaterally, there is mild, clear discharge) Neck: Supple Lungs: Decreased Breath Sounds, Crackles, Other (Better air movement and less coarse sounds today compared to yesterday) Cardiovascular: Regular Rate, Regular Rhythm GI/Abdominal Exam: Normal Bowel Sounds, Non-Tender Back Exam: Normal Inspection Extremities: Pedal Edema Peripheral Pulses: 1+: Dorsalis Pedis (L), Dorsalis Pedis (R), 2+: Radial (L), Radial (R) Skin: Warm, Dry Neurological: No New Focal Deficit Psy/Mental Status: Alert - Patient Data Lab Results Last 24 hrs: Laboratory Results - last 24 hr 07/14/21 07/14/21 Range/Units 06:15 07:00 WBC 7.7 (3.2-10.1) x10-3/uL RBC 4.89 (3.90-5.90) x10(6)uL Hgb 13.9 (12.9-17.7) g/dL Hct 41.7 (38.3-50.1) % MCV 85.2 (80.8-98.7) fL MCH 28.3 (27.0-33.3) pg MCHC 33.3 (28.7-35.3) g/dL RDW 14.6 (12.4-15.0) % Plt Count 164 (117-477) x10(3)uL MPV 9.1 (6.7-11.0) fL Neut % (Auto) 57.1 (40.3-71.8) % Lymph % (Auto) 29.9 (15.8-45.3) % [place] % (Auto) 9.2 (5.5-15.2) % Eos % (Auto) 3.2 (0.1-6.8) % Baso % (Auto) 0.6 (0.3-3.8) % Neut # (Auto) 4.4 (1.7-6.9) x10-3/uL Lymph # (Auto) 2.3 (0.5-4.5) x10-3/uL [place] # (Auto) 0.7 (0.0-1.2) x10-3/uL Eos # (Auto) 0.2 (0.0-0.6) x10-3/uL Baso # (Auto) 0.0 (0.0-0.3) x10-3/uL SARS-CoV-2 RNA (DAVIS) Negative (NEGATIVE) Result Diagrams: 07/14/21 06:15 07/13/21 06:15 Sepsis Event Note - Evaluation Sepsis Screening Result: No Definite Risk - Focused Exam Vital Signs: Vital Signs Temp Pulse Resp BP BP Pulse Ox 07/14/21 08:29 163/76 H 07/14/21 06:31 36.4 C 72 20 163/76 H 97 07/14/21 01:15 36.6 C 69 16 166/83 H 96 - Problem List & Annotations (1) Acute right-sided weakness SNOMED Code(s): 980850818 Code(s): R53.1 - WEAKNESS Status: Acute Current Visit: Yes Onset Date: ~07/07/21 (2) CVA (cerebral vascular accident) SNOMED Code(s): 226961128 Code(s): I63.9 - CEREBRAL INFARCTION, UNSPECIFIED Status: Acute Current Visit: Yes Annotation/Comment:: MRI brain: left posterior frontal lobe & left parietal periatrial white matter consistent with acute infarct. CTA head: Severe focal stenosis of cavernous left ICA by soft & calcified atheromatous plaquing. Moderate to severe multifocal narrowing of the proximal posterior cerebral arteries bilaterally, likely atheromatous in origin. Vessels remain patent beyond the level of the crural cistern on each side. Multifocal irregularity involving the distal M1 segments bilaterally which is less severe but also likely on the basis of atheromatous disease. CTA neck: No significant atheromatous narrowing within the neck vasculature. Possible tracheomalacia incidentally noted. (3) Internal carotid artery stenosis SNOMED Code(s): 235200570 Code(s): I65.29 - OCCLUSION AND STENOSIS OF UNSPECIFIED CAROTID ARTERY St atus: Chronic Current Visit: Yes Qualifiers: Laterality: left Qualified Code(s): I65.22 - Occlusion and stenosis of left carotid artery Annotation/Comment:: CTA head: Severe focal stenosis of cavernous left ICA by soft & calcified atheromatous plaquing. Moderate to severe multifocal narrowing of the proximal posterior cerebral arteries bilaterally, likely atheromatous in origin. Vessels remain patent beyond the level of the crural cistern on each side. Multifocal irregularity involving the distal M1 segments bilaterally which is less severe but also likely on the basis of atheromatous disease. CTA neck: No significant atheromatous narrowing within the neck vasculature. Possible tracheomalacia incidentally noted. 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 Has upper airway wheezing occasionally, continue DuoNebs as needed. (9) Acute renal failure SNOMED Code(s): 66992589 Code(s): N17.9 - ACUTE KIDNEY FAILURE, UNSPECIFIED Status: Resolved Current Visit: No Annotation/Comment:: Cr 1.4, received constrast yesterday so will continue IVF. (10) Generalized weakness SNOMED Code(s): 61295681 Code(s): R53.1 - WEAKNESS Status: Acute Current Visit: No (11) Constipation SNOMED Code(s): 57399259 Code(s): K59.00 - CONSTIPATION, UNSPECIFIED Status: Chronic Current Visit: No Qualifiers: Constipation type: chronic idiopathic constipation Qualified Code(s): K59.04 - Chronic idiopathic constipation (12) Palliative care status SNOMED Code(s): 178361084 Code(s): Z51.5 - ENCOUNTER FOR PALLIATIVE CARE Status: Chronic Current Visit: No (13) Conjunctivitis SNOMED Code(s): 9886613 Code(s): H10.9 - UNSPECIFIED CONJUNCTIVITIS Status: Acute Current Visit: Yes - Problem List Review Problem List Initiated/Reviewed/Updated: Yes - My Orders Last 24 Hours: My Active Orders 07/13/21 10:15 guaiFENesin [Mucinex] 600 mg PO BID 07/13/21 21:00 Aspirin [Halfprin] 81 mg PO BEDTIME Enoxaparin [Lovenox] 80 mg SUBCUT BEDTIME atorvaSTATin [Lipitor] 80 mg PO BEDTIME 07/14/21 09:00 Clopidogrel [Plavix] 75 mg PO DAILY Clotrimazole [Lotrimin AF 1% Crm] 0 gm TOP BID - Plan Plan:: 1. Patient admitted to inpatient status for evaluation and treatment of what appears to be an acute CVA. Patient does have chronic bilateral lower extremity weakness, confusion. Patient has history consistent with chronic multiple CVAs with residual deficits. Follow recommendations from OT/PT/speech. 2. Acute renal failure/ANNETTA: Patient's renal function seems to be stable at this point in time with creatinine 1.4-1.5. We will continue to monitor renal function but intermittently. 3. Insomnia: continue current treatment. 4. Hypertension: Continue current treatment patient has a history of labile hypertension 5. Conjunctivitis: Patient's symptoms and visual inspection improving, continue current treatment 6. DVT prophylaxis: Continue enoxaparin 7. Disposition: Likely discharge to [facility] for continued OT/PT and for fci care. Note that I spoke with interventional neurology on the phone and they recommended dual antiplatelet therapy. Patient will remain on dual antiplatelet therapy, Plavix 75 mg daily and 81 mg aspirin daily, until September 29, 2021. He will then take a full-strength, 324 mg aspirin daily.
[2021-07-14] MEDS: Aspirin 81 MG Tab.EC PO SCH (21:05)
[2021-07-14] MEDS: atorvaSTATin 40 MG Tab PO SCH (21:05)
[2021-07-14] MEDS: Enoxaparin 80 MG/0.8 ML Syringe SUBCUT SCH (21:06)
[2021-07-14] MEDS: Mirtazapine 15 MG Tab PO SCH (21:07)
[2021-07-15] MEDS: guaiFENesin 600 MG Tab.ER PO SCH (09:04)
[2021-07-15] MEDS: Clopidogrel 75 MG Tab PO SCH (09:05)
[2021-07-15] MEDS: Clotrimazole 1% Crm 30 GM Tube TOP SCH (09:05)
[2021-07-15] MEDS: Losartan 25 MG Tab PO SCH (09:05)
[2021-07-15] MEDS: Ofloxacin 0.3% Ophth Soln 5 ML Bottle EYEBOTH SCH (09:06)
[2021-07-15 09:47] VITALS: BP 111/69; PULSE 70
--- NOTE | 2021-07-15 10:44 | PCM.DCSUM1 ---
Discharge Summary - Hospital Course Free Text/Narrative:: 85-year-old gentleman was brought to the emergency department via EMS due to right-sided weakness. There is some confusion between the patient and family as to how long weakness has been present. It appears that he has had bilateral lower extremity weakness for quite some time that seems to be progressive. However, he did have some acute increase in right-sided weakness including the right upper and lower extremity. CT and CTA of the head were performed and suggested possible infarcts in the right middle and frontal areas, see imaging for full details. Consultation with neurology recommended Plavix with baby aspirin for 90 days. Patient also underwent PT OT evaluation and treatment. He is being discharged to long term facility for further rehabilitation. Diagnosis: Stroke: Yes Modified Rhea Scale: Mod.Disablility Requiring Some Help,Able to Walk Without Assistance Modified Fife Scale Score: 3 - Discharge Data Discharge Date: 07/15/21 Discharge Disposition: DC/Tfer to SNF 03 Condition: Good - Referral to Home Health Primary Care Physician: Dashawn Wiley PA-C - Discharge Diagnosis/Problem(s) (1) Acute right-sided weakness SNOMED Code(s): 245263586 ICD Code: R53.1 - WEAKNESS Status: Acute Current Visit: Yes Onset Date: ~07/07/21 (2) CVA (cerebral vascular accident) SNOMED Code(s): 529146482 ICD Code: I63.9 - CEREBRAL INFARCTION, UNSPECIFIED Status: Acute Current Visit: Yes Problem Details: MRI brain: left posterior frontal lobe & left parietal periatrial white matter consistent with acute infarct. CTA head: Severe focal stenosis of cavernous left ICA by soft & calcified atheromatous plaquing. Moderate to severe multifocal narrowing of the proximal posterior cerebral arteries bilaterally, likely atheromatous in origin. Vessels remain patent beyond the level of the crural cistern on each side. Multifocal irregularity involving the distal M1 segments bilaterally which is less severe but also likely on the basis of atheromatous disease. CTA neck: No significant atheromatous narrowing within the neck vasculature. Possible tracheomalacia incidentally noted. (3) Internal carotid artery stenosis SNOMED Code(s): 190645264 ICD Code: I65.29 - OCCLUSION AND STENOSIS OF UNSPECIFIED CAROTID ARTERY Status: Chronic Current Visit: Yes Problem Details: CTA head: Severe focal stenosis of cavernous left ICA by soft & calcified atheromatous plaquing. Moderate to severe multifocal narrowing of the proximal posterior cerebral arteries bilaterally, likely atheromatous in origin. Vessels remain patent beyond the level of the crural cistern on each side. Multifocal irregularity involving the distal M1 segments bilaterally which is less severe but also likely on the basis of atheromatous disease. CTA neck: No significant atheromatous narrowing within the neck vasculature. Possible tracheomalacia incidentally noted. Qualifiers: Laterality: left Qualified Code(s): I65.22 - Occlusion and stenosis of left carotid artery (4) DNR (do not resuscitate) Status: Chronic Current Visit: Yes (5) History of prostate cancer SNOMED Code(s): 169839885 ICD Code: Z85.46 - PERSONAL HISTORY OF MALIGNANT NEOPLASM OF PROSTATE Status: Chronic Current Visit: Yes Onset Date: ~08/2010 (6) Hypertension SNOMED Code(s): 49555746 ICD Code: I10 - ESSENTIAL (PRIMARY) HYPERTENSION Status: Chronic Current Visit: Yes (7) Insomnia SNOMED Code(s): 731613068 ICD Code: G47.00 - INSOMNIA, UNSPECIFIED Status: Chronic Current Visit: Yes (8) Tracheomalacia SNOMED Code(s): 16509954 ICD Code: J39.8 - OTHER SPECIFIED DISEASES OF UPPER RESPIRATORY TRACT Status: Chronic Current Visit: Yes Problem Details: incidential finding on CTA neck. Has upper airway wheezing occasionally, continue DuoNebs as needed. (9) Acute renal failure SNOMED Code(s): 15900764 ICD Code: N17.9 - ACUTE KIDNEY FAILURE, UNSPECIFIED Status: Resolved Current Visit: No Problem Details: Cr 1.4, received constrast yesterday so will continue IVF. (10) Generalized weakness SNOMED Code(s): 06390024 ICD Code: R53.1 - WEAKNESS Status: Acute Current Visit: No (11) Constipation SNOMED Code(s): 92429799 ICD Code: K59.00 - CONSTIPATION, UNSPECIFIED Status: Chronic Current Visit: No Qualifiers: Constipation type: chronic idiopathic constipation Qualified Code(s): K59.04 - Chronic idiopathic constipation (12) Palliative care status SNOMED Code(s): 173220331 ICD Code: Z51.5 - ENCOUNTER FOR PALLIATIVE CARE Status: Chronic Current Visit: No (13) Conjunctivitis SNOMED Code(s): 4991251 ICD Code: H10.9 - UNSPECIFIED CONJUNCTIVITIS Status: Acute Current Visit: Yes - Patient Summary/Data Consults: Consultations 07/08/21 15:10 OT Evaluation and Treatment [CONS] Routine Please Evaluate and Treat. OT Reason for Consult: ADL's This query below is only for informational purposes and is not editable. Admission Diagnosis/Problem: CVA, Cerebrovascular accident PT Evaluation and Treatment [CONS] Routine Please Evaluate and Treat. PT Reason for Consult: Strengthening This query below is only for informational purposes and is not editable. Admission Diagnosis/Problem: CVA, Cerebrovascular accident 07/08/21 15:19 GUARD CHIEF Evaluation and Treatment [CONS] Routine Please Evaluate and Treat GUARD CHIEF Reason for Consult: Speech Language Cognitive and Swallowing This query below is only for informational purposes and is not editable. Admission Diagnosis/Problem: CVA, Cerebrovascular accident - Patient Instructions Diet: Usual Diet as Tolerated Activity: As Tolerated Driving: Do Not Drive Showering/Bathing: May Shower - Discharge Plan *PRESCRIPTION DRUG MONITORING PROGRAM REVIEWED*: Not Applicable *COPY OF PRESCRIPTION DRUG MONITORING REPORT IN PATIENT SHREYAS: Not Applicable Prescriptions/Med Rec: Aspirin [Halfprin] 81 mg PO BEDTIME #30 tab.ec atorvaSTATin [Lipitor] 80 mg PO BEDTIME #60 tablet guaiFENesin [Mucinex] 600 mg PO BID PRN #60 tab.er PRN Reason: Congestion Clopidogrel [Plavix] 75 mg PO DAILY #30 tablet Home Medications: Home Meds Carboxymethylcellulose Sodium [Artificial Tears] 1 drop EYEBOTH QID PRN 06/22/19 [History] Ciclopirox [Loprox 0.77% Crm] 1 applic TP BID 06/22/19 [History] Losartan [Cozaar] 25 mg PO DAILY 06/22/19 [History] polyethylene glycoL 3350 [MiraLAX] 17 gm PO DAILY PRN 06/22/19 [History] Albuterol/Ipratropium [DuoNeb 3.0-0.5 MG/3 ML] 3 ml IH Q6H PRN 07/08/21 [History] Lactulose [Cephulac] 15 ml PO TID PRN 07/08/21 [History] Mirtazapine 15 mg PO BEDTIME 07/08/21 [History] hydrOXYzine pamoate [Hydroxyzine Pamoate] 25 mg PO BID PRN 07/08/21 [History] Aspirin [Halfprin] 81 mg PO BEDTIME #30 tab.ec 07/15/21 [Rx] Clopidogrel [Plavix] 75 mg PO DAILY #30 tablet 07/15/21 [Rx] atorvaSTATin [Lipitor] 80 mg PO BEDTIME #60 tablet 07/15/21 [Rx] guaiFENesin [Mucinex] 600 mg PO BID PRN #60 tab.er 07/15/21 [Rx] Patient Handouts: Ischemic Stroke, [id number], Warning Signs of a Stroke, Fall Prevention in Hospitals, Adult, Venous Thromboembolism Prevention Forms: ED Department Discharge Referrals: José Miguel Guerrero MD [Physician] - - Discharge Summary/Plan Comment DC Time >30 min.: Yes Total # of Minutes for Discharge Time: 60 Discharge Summary/Plan Comment: Patient will need to take 75 mg of Plavix and 81 mg aspirin daily until the end of the first week in September. This will be approximately 90 days of treatment. Patient will then be restarted on a full-strength, 3 and 24 mg, aspirin daily and stop Plavix. Patient had a chest x-ray prior to being discharged to [facility] secondary to complaint of pain behind the right scapula and increased crackles in the lung in that area. Review of chest x-ray in consultation with radiology shows chronic fibrosis of lung tissue in that area and possible acute consolidation but no definitive proof on x-ray. Monitor patient for signs of increasing shortness of breath, cough, fever, weakness. Consider treatment for pneumonia with Augmentin and azithromycin if patient develops increased symptoms. Patient is being discharged to long term facility for occupational and ph ysical therapy. Patient should have follow-up with primary care physician in the next 7 to 10 days. Note that patient was given antibiotic eyedrops for likely bacterial conjunctivitis which has significantly resolved prior to discharge. If patient once again develops conjunctivitis consider retreatment for bacterial infection. - General Info Date of Service: 07/15/21 Admission Dx/Problem (Free Text: Admission Diagnosis/Problem Admission Diagnosis/Problem CVA, Cerebrovascular accident Subjective Update: Patient complains of right sided back pain. He has had several complaints throughout his stay, intermittently, about right-sided pain. Is also had varying degrees of cough with sputum production. He describes the pain as sharp and existing behind his right shoulder blade. He has no other acute complaints and no significant change in his functional status according to his report Functional Status: Reports: Pain Controlled, Tolerating Diet, Ambulating, Urinating - Review of Systems General: Reports: Weakness HEENT: Reports: No Symptoms Pulmonary: Reports: Cough Cardiovascular: Reports: No Symptoms Gastrointestinal: Reports: No Symptoms Genitourinary: Reports: No Symptoms Musculoskeletal: Reports: Back Pain Skin: Reports: No Symptoms Neurological: Reports: Difficulty Walking, Weakness, Other (Right upper extremity weakness) Psychiatric: Reports: Confusion - Patient Data Vitals - Most Recent: Last Vital Signs Temp 36.6 C 07/15/21 08:00 Pulse 70 07/15/21 08:00 Resp 16 07/15/21 08:00 BP 111/57 L 07/15/21 09:05 Pulse Ox 97 07/15/21 08:00 Weight - Most Recent: 102.285 kg Med Orders - Current: Current Medications Acetaminophen (Acetaminophen 500 Mg Tab) 500 mg PO Q6H PRN PRN Reason: Pain Last Admin: 07/11/21 21:59 Dose: 500 mg Documented by: Albuterol/Ipratropium (Albuterol/Ipratropium 3.0-0.5 Mg/3 Ml Neb Soln) 3 ml NEB Q6H PRN PRN Reason: Shortness of Breath Last Admin: 07/09/21 09:38 Dose: 3 ml Documented by: Artificial Tears (Carboxymethylcellulose Sodium 0.5% Ophth Soln 15 Ml Bottle) 0 ml EYEBOTH QID PRN PRN Reason: Dry Eyes Last Admin: 07/13/21 16:51 Dose: 1 drop Documented by: Aspirin (Aspirin 81 Mg Tab.Ec) 81 mg PO BEDTIME [facility] Last Admin: 07/14/21 21:05 Dose: 81 mg Documented by: Atorvastatin Calcium (Atorvastatin 40 Mg Tab) 80 mg PO BEDTIME [facility] Last Admin: 07/14/21 21:05 Dose: 80 mg Documented by: Clopidogrel Bisulfate (Clopidogrel 75 Mg Tab) 75 mg PO DAILY [facility] Stop: 09/29/21 23:00 Last Admin: 07/15/21 09:05 Dose: 75 mg Documented by: Clotrimazole (Clotrimazole 1% Crm 30 Gm Tube) 0 gm TOP BID [facility] Last Admin: 07/15/21 09:05 Dose: 1 applic Documented by: Enoxaparin Sodium (Enoxaparin 80 Mg/0.8 Ml Syringe) 80 mg SUBCUT BEDTIME [facility] Last Admin: 07/14/21 21:06 Dose: 80 mg Documented by: Guaifenesin (Guaifenesin 600 Mg Tab.Er) 600 mg PO BID [facility] Last Admin: 07/15/21 09:04 Dose: 600 mg Documented by: Hydroxyzine Pamoate (Hydroxyzine Pamoate 50 Mg Cap) 50 mg PO BID PRN PRN Reason: Itching/insomnia Last Admin: 07/14/21 22:31 Dose: 50 mg Documented by: Lactulose (Lactulose Soln 10 Gm/15 Ml 15 Ml Ud Cup) 10 gm PO TID PRN PRN Reason: Constipation Losartan Potassium (Losartan 25 Mg Tab) 25 mg PO DAILY [facility] Last Admin: 07/15/21 09:05 Dose: 25 mg Documented by: Mirtazapine (Mirtazapine 15 Mg Tab) 15 mg PO BEDTIME [facility] Last Admin: 07/14/21 21:07 Dose: 15 mg Documented by: Ofloxacin (Ofloxacin 0.3% Ophth Soln 5 Ml Bottle) 0 ml EYEBOTH BID [facility] Last Admin: 07/15/21 09:06 Dose: 1 drop Documented by: Polyethylene Glycol (Polyethylene Glycol 3350 Powder 17 Gm Packet) 17 gm PO DAILY PRN PRN Reason: Constipation Sodium Chloride (Sodium Chloride 0.9% 10 Ml Syringe) 10 ml FLUSH ASDIRECTED PRN PRN Reason: Keep Vein Open Last Admin: 07/11/21 13:47 Dose: 10 ml Documented by: Discontinued Medications Aspirin (Aspirin 81 Mg Tab.Chew) 324 mg PO ONETIME ONE Stop: 07/08/21 15:04 Last Admin: 07/08/21 15:05 Dose: 324 mg Documented by: Aspirin (Aspirin 81 Mg Tab.Chew) 324 mg PO DAILY [facility] Last Admin: 07/13/21 08:04 Dose: 324 mg Documented by: Atorvastatin Calcium (Atorvastatin 40 Mg Tab) 40 mg PO ONETIME ONE Stop: 07/08/21 15:04 Last Admin: 07/08/21 15:08 Dose: 40 mg Documented by: Atorvastatin Calcium (Atorvastatin 40 Mg Tab) 40 mg PO BEDTIME [facility] Last Admin: 07/12/21 20:49 Dose: 40 mg Documented by: Clopidogrel Bisulfate (Clopidogrel 75 Mg Tab) 300 mg PO ONETIME ONE Stop: 07/13/21 11:05 Last Admin: 07/13/21 11:17 Dose: 300 mg Documented by: Enoxaparin Sodium (Enoxaparin 40 Mg/0.4 Ml Syringe) 40 mg SUBCUT BEDTIME [facility] Last Admin: 07/12/21 20:49 Dose: 40 mg Documented by: Hydroxyzine HCl (Hydroxyzine Hcl 25 Mg Tab) 25 mg PO BID PRN PRN Reason: Itching/insomnia Last Admin: 07/09/21 02:00 Dose: 25 mg Documented by: Sodium Chloride (Normal Saline) 1,000 mls @ 75 mls/hr IV ASDIRECTED [facility] Last Admin: 07/10/21 02:44 Dose: 75 mls/hr Documented by: Iopamidol (Iopamidol 755 Mg/Ml 100 Ml Bottle) 85 ml IV . DIRECTED ONE Stop: 07/09/21 13:35 Last Admin: 07/09/21 14:43 Dose: 85 ml Documented by: Metoprolol Succinate (Metoprolol Succinate 25 Mg Tab.Er) 25 mg PO DAILY [facility] Last Admin: 07/11/21 11:35 Dose: 25 mg Documented by: Metoprolol Succinate (Metoprolol Succinate 50 Mg Tab.Er) 50 mg PO DAILY [facility] Last Admin: 07/12/21 11:15 Dose: Not Given Documented by: Zolpidem Tartrate (Zolpidem 5 Mg Tab) 5 mg PO BEDTIME PRN PRN Reason: SLEEP Comments:: Patient is lying in bed resting, alert, cooperative - Exam Quality Assessment: Reports: Supplemental Oxygen, DVT Prophylaxis General: Reports: Alert, Oriented, Cooperative, No Acute Distress HEENT: Reports: EOMI Neck: Reports: Supple Lungs: Reports: Decreased Breath Sounds, Crackles. Denies: Wheezing Cardiovascular: Reports: Regular Rate, Regular Rhythm GI/Abdominal Exam: Normal Bowel Sounds, Non-Tender Back Exam: Reports: Other (Tenderness to palpation over the right scapula) Extremities: Pedal Edema Skin: Reports: Warm, Dry Neurological: Reports: No New Focal Deficit Psy/Mental Status: Reports: Alert, Normal Affect, Normal Mood *Q Meaningful Use (DIS) - VTE *Q VTE Mechanical Contraindications *Q: At Risk for Falls - Stroke *Q Antithrombotic Contraindications Stroke *Q: Comp/Late Effect of Care
--- NOTE | 2021-07-15 11:02 | CR ---
CHEST TWO VIEWS INDICATION: Abnormal lung sounds on right, congestion and cough. FINDINGS: PA and two lateral views of the chest were obtained 07/15/21 and compared with 05/08/19 and 01/20/19. On the lateral view, there is again noted a linear density anteriorly which likely represents fibrosis as it was present back in January 2019. There are also heavy markings at the right lung base which appear essentially unchanged from the previous examination and likely represent fibrosis with previous infection. However, the possibility of superimposed patchy bronchopneumonia in that area cannot be entirely excluded. A recurrent patchy pneumonia in that area would also be a consideration. However, no gross consolidating pneumonia or effusion was identified. The heart appeared normal in size and shape. The aorta was minimally calcified. The bony structures show evidence of degenerative change with bridging hyperostotic changes anteriorly off vertebral bodies. There is also question of demineralization. Findings suggestive of COPD are also seen. IMPRESSION: 1. No definite acute process but difficult to exclude a patchy bronchopneumonia at the right lung base. 2. COPD. 3. Mild ASD aorta. 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 5. Scarring suggested at the right lung base. Report was given by phone to Dr. Duvall at approximately 1040 hours. [facility]
== END 2021-07-15 10:40 | DRG 65 ==
LOC: FB.ED 11:55 → FB.MS 14:55
PROVIDERS: ADMIT Family Medicine; ATTEND Student in an Organized Health Care Education/Training Program
DX: I63.9 Cerebral infarction, unspecified (principal); G81.91 Hemiplegia, unspecified affecting right dominant side; N17.9 Acute kidney failure, unspecified; K59.09 Other constipation; R29.702 NIHSS score 2; E66.9 Obesity, unspecified; I65.22 Occlusion and stenosis of left carotid artery; Z92.3 Personal history of irradiation; Z88.2 Allergy status to sulfonamides; Z88.8 Allergy status to other drugs, medicaments and biological substances; Z79.899 Other long term (current) drug therapy; Z66 Do not resuscitate; Z51.5 Encounter for palliative care; I10 Essential (primary) hypertension; J39.8 Other specified diseases of upper respiratory tract; Z96.0 Presence of urogenital implants; G47.00 Insomnia, unspecified; K21.9 Gastro-esophageal reflux disease without esophagitis; Z20.822 Contact with and (suspected) exposure to COVID-19; K59.04 Chronic idiopathic constipation; H10.9 Unspecified conjunctivitis; H40.9 Unspecified glaucoma; Z87.448 Personal history of other diseases of urinary system; Z87.81 Personal history of (healed) traumatic fracture; Z98.42 Cataract extraction status, left eye; Z98.41 Cataract extraction status, right eye; Z85.46 Personal history of malignant neoplasm of prostate; Z90.89 Acquired absence of other organs; Z98.890 Other specified postprocedural states; Z90.49 Acquired absence of other specified parts of digestive tract
CPT/HCPCS: 36415; 70450; 70496; 70498; 70551; 71046; 80048; 80053; 80061; 81001; 83735; 84484; 85025; 87086; 92521-GN; 92610-GN; 93005; 93880; 94640; 97161-GP; 97165-GO; 97530-GO; 99285; A9270-GY; J1650; J7030; J7620-GY; Q9967; U0002

== ENCOUNTER 2022-03-07 16:54 | Emergency (ER) | payer MEDICARE, OTHER ==
[2022-03-07] MEDS ORDERED: Acetaminophen/HYDROcodone 325-5 MG Tab PO ONE ×2 (16:55→20:29)
[2022-03-07] MEDS ORDERED: Sodium Chloride 0.9% 10 ML Syringe FLUSH PRN (17:08)
[2022-03-07] MEDS ORDERED: Ketorolac 30 MG/ML SDV IVPUSH ONE (17:29)
[2022-03-07] MEDS ORDERED: Morphine 2 MG/ML SYRINGE IVPUSH ONE (17:29)
[2022-03-07] MEDS ORDERED: Albuterol/Ipratropium 3.0-0.5 MG/3 ML Neb Soln NEB ONE (17:29)
[2022-03-07] MEDS ORDERED: methylPREDNISolone Sodium Succinate 125 MG/2 ML SDV IVPUSH STA (17:33)
[2022-03-07 17:36] LABS: ESTIMATED GFR 45 mL/min (>60)
[2022-03-07 17:37] LABS: BASE EXCESS VENOUS,POC -1 mmol/L (-2 - 3+); PCO2 VENOUS,POC 43 mmHg (41-51); PH VENOUS,POC 7.37 pH Units (7.32-7.43)
[2022-03-07] MEDS ORDERED: Morphine 4 MG/ML VIAL IVPUSH STA (18:46)
[2022-03-07] MEDS ORDERED: Morphine 4 MG/ML VIAL ONE (18:47)
[2022-03-07] MEDS ORDERED: Tamsulosin 0.4 MG Cap.ER PO ONE (19:51)
[2022-03-08 01:04] VITALS: BP 165/78; PULSE 93
== END 2022-03-07 21:10 | disposition home or self-care (01) ==
LOC: FB.ED 16:54
DX: N20.0 Calculus of kidney (principal); I10 Essential (primary) hypertension; E66.9 Obesity, unspecified; Z68.32 Body mass index [BMI] 32.0-32.9, adult; Z88.8 Allergy status to other drugs, medicaments and biological substances; Z88.2 Allergy status to sulfonamides; Z79.899 Other long term (current) drug therapy; Z87.891 Personal history of nicotine dependence
CPT/HCPCS: 36415; 71045; 74176; 80053; 81001; 82150; 83690; 83880; 84484; 85025; 93005; 93010; 94640; 96374; 96375; 96376; 99283; 99284-25; A9270-GY; J1885; J2270; J2930; J3490; J7620

== ENCOUNTER 2022-03-08 22:16 | Inpatient (IN) | payer MEDICARE, OTHER ==
[2022-03-08] MEDS ORDERED: Ketorolac 30 MG/ML SDV IVPUSH ONE (22:28)
[2022-03-08] MEDS ORDERED: Morphine 4 MG/ML VIAL IVPUSH ONE (22:37)
[2022-03-08] MEDS ORDERED: Furosemide 40 MG/4 ML VIAL IVPUSH ONE (22:40)
[2022-03-08] MEDS ORDERED: Ondansetron 4 MG/2 ML SDV IV PRN (22:49)
[2022-03-08] MEDS ORDERED: Polyethylene Glycol 3350 Powder 17 GM Packet PO PRN (22:52)
[2022-03-08] MEDS ORDERED: Non-Formulary Medication 1 Each (Hydroxyzine Pamoate [Hydroxyzine Pamoate] 25 MG Capsule) PO PRN (22:52)
[2022-03-08] MEDS ORDERED: Non-Formulary Medication 1 Each (Carboxymethylcellulose Sodium [Artificial Tears] 15 ML Dr EYEBOTH PRN (22:52)
[2022-03-08] MEDS ORDERED: guaiFENesin 600 MG Tab.ER PO PRN (22:52)
[2022-03-08] MEDS ORDERED: Lactulose Soln 10 GM/15 ML 15 ML UD Cup PO PRN (22:52)
[2022-03-08 22:53] LABS: ESTIMATED GFR 36 mL/min (>60)
[2022-03-08] MEDS ORDERED: hydrOXYzine HCl 25 MG Tab PO PRN (22:57)
[2022-03-08] MEDS ORDERED: Carboxymethylcellulose Sodium 0.5% Ophth Soln 15 ML Bottle EYEBOTH PRN (23:00)
[2022-03-08] MEDS: Enoxaparin 30 MG/0.3 ML Syringe SUBCUT SCH (23:28)
[2022-03-09] MEDS: fentaNYL 100 MCG/2 ML SDV IVPUSH PRN ×5 (00:50→22:31)
[2022-03-09] MEDS: Albuterol/Ipratropium 3.0-0.5 MG/3 ML Neb Soln NEB PRN ×5 (01:01→21:54)
[2022-03-09] MEDS ORDERED: Furosemide 40 MG/4 ML VIAL IVPUSH SCH (02:00)
[2022-03-09] MEDS: Morphine 2 MG/ML SYRINGE IVPUSH PRN ×2 (03:09→06:29)
[2022-03-09] MEDS: Ketorolac 15 MG/ML SDV IVPUSH PRN ×2 (05:32→14:57)
[2022-03-09 06:34] LABS: ESTIMATED GFR 27 mL/min (>60)
[2022-03-09] MEDS ORDERED: LORazepam 2 MG/ML SDV IVPUSH ONE (08:09)
[2022-03-09] MEDS: Sodium Chloride 0.9% 10 ML Syringe FLUSH PRN ×4 (08:18→14:13)
[2022-03-09] MEDS: Piperacillin/Tazobactam 2.25 GM in Sodium Chloride 0.9% 50 ML IV SCH ×3 (09:23→21:08)
[2022-03-09] MEDS: Aspirin 81 MG Tab.EC PO SCH (09:24)
[2022-03-09] MEDS: Famotidine 10 MG Tab PO SCH ×2 (09:24→22:13)
[2022-03-09] MEDS: Clopidogrel 75 MG Tab PO SCH (09:33)
[2022-03-09] MEDS ORDERED: Sodium Chloride 0.9% 1,000 ML IV ONE (09:58)
[2022-03-09] MEDS: Polyethylene Glycol 3350 Powder 17 GM Packet PO SCH (11:20)
[2022-03-09] MEDS: Lactulose Soln 10 GM/15 ML 15 ML UD Cup PO SCH (11:20)
[2022-03-09] MEDS ORDERED: Diatrizoate Meglumine/Diatrizoate Sodium 37% 30 ML Bottle PO ONE (13:29)
[2022-03-09] MEDS: Sodium Chloride 0.9% 1,000 ML IV SCH (14:15)
[2022-03-09] MEDS: LORazepam 2 MG/ML SDV IVPUSH PRN ×4 (15:13→23:30)
[2022-03-09] MEDS ORDERED: Sodium Phosphate,Monobasic/Sodium Phosphate,Dibasic Enema 133 ML Bottle RECTAL ONE (18:16)
[2022-03-09 18:44] LABS: ESTIMATED GFR 25 mL/min (>60)
[2022-03-09] MEDS ORDERED: Sodium Chloride 0.9% 500 ML IV ONE (19:00)
[2022-03-09] MEDS ORDERED: Mirtazapine 15 MG Tab PO SCH (21:00)
[2022-03-09] MEDS: Mirtazapine 15 MG Tab PO SCH (22:13)
[2022-03-09] MEDS: Enoxaparin 30 MG/0.3 ML Syringe SUBCUT SCH (22:25)
[2022-03-10] MEDS: fentaNYL 100 MCG/2 ML SDV IVPUSH PRN ×4 (00:37→15:58)
[2022-03-10] MEDS: LORazepam 2 MG/ML SDV IVPUSH PRN ×4 (02:21→19:57)
[2022-03-10] MEDS: Piperacillin/Tazobactam 2.25 GM in Sodium Chloride 0.9% 50 ML IV SCH ×4 (02:25→20:29)
[2022-03-10] MEDS: Sodium Chloride 0.9% 1,000 ML IV SCH ×4 (04:16→23:40)
[2022-03-10] MEDS: Albuterol/Ipratropium 3.0-0.5 MG/3 ML Neb Soln NEB PRN ×2 (06:24→09:12)
[2022-03-10 06:45] LABS: ESTIMATED GFR 23 mL/min (>60)
[2022-03-10] MEDS ORDERED: Sodium Chloride 0.9% 1,000 ML IV ONE (07:41)
[2022-03-10] MEDS ORDERED: Sodium Phosphate,Monobasic/Sodium Phosphate,Dibasic Enema 133 ML Bottle RECTAL ONE ×2 (08:24→10:40)
[2022-03-10] MEDS ORDERED: Furosemide 40 MG/4 ML VIAL IVPUSH SCH (09:00)
[2022-03-10] MEDS: Clopidogrel 75 MG Tab PO SCH (09:50)
[2022-03-10] MEDS: Aspirin 81 MG Tab.EC PO SCH (09:50)
[2022-03-10] MEDS: Polyethylene Glycol 3350 Powder 17 GM Packet PO SCH (09:50)
[2022-03-10] MEDS: Lactulose Soln 10 GM/15 ML 15 ML UD Cup PO SCH (09:50)
[2022-03-10] MEDS: Famotidine 10 MG Tab PO SCH ×2 (09:50→20:30)
[2022-03-10] MEDS ORDERED: Morphine 10 MG/0.5 ML Oral Syringe SL SCH (10:00)
[2022-03-10] MEDS: Albuterol/Ipratropium 3.0-0.5 MG/3 ML Neb Soln INH SCH ×3 (10:48→20:30)
[2022-03-10 13:21] LABS: ESTIMATED GFR 27 mL/min (>60)
[2022-03-10] MEDS: Morphine 10 MG/0.5 ML Oral Syringe SL SCH ×3 (13:50→21:01)
[2022-03-10 18:25] LABS: ESTIMATED GFR 29 mL/min (>60)
[2022-03-10] MEDS: Mirtazapine 15 MG Tab PO SCH (20:30)
[2022-03-10] MEDS ORDERED: LORazepam 2 MG/ML SDV IVPUSH PRN (21:40)
[2022-03-10] MEDS: Morphine 10 MG/0.5 ML Oral Syringe PO PRN (22:10)
[2022-03-10] MEDS: Enoxaparin 30 MG/0.3 ML Syringe SUBCUT SCH (22:22)
[2022-03-11] MEDS: Morphine 10 MG/0.5 ML Oral Syringe PO PRN ×4 (00:12→12:49)
[2022-03-11] MEDS: Piperacillin/Tazobactam 2.25 GM in Sodium Chloride 0.9% 50 ML IV SCH ×2 (02:47→09:23)
[2022-03-11] MEDS: Albuterol/Ipratropium 3.0-0.5 MG/3 ML Neb Soln INH SCH (06:00)
[2022-03-11 06:50] LABS: ESTIMATED GFR 36 mL/min (>60)
[2022-03-11] MEDS: Sodium Chloride 0.9% 1,000 ML IV SCH (06:52)
[2022-03-11] MEDS ORDERED: Hyoscyamine 0.125 MG Tab.SL SL PRN (08:38)
[2022-03-11] MEDS ORDERED: Furosemide 20 MG/2 ML VIAL IVPUSH ONE (08:45)
[2022-03-11] MEDS: Sodium Chloride 0.9% 10 ML Syringe FLUSH PRN ×2 (08:55→09:22)
[2022-03-11] MEDS ORDERED: Scopolamine 1.5 MG Transdermal Patch TRDERM SCH (09:00)
[2022-03-11 14:31] VITALS: BP 115/41; PULSE 85
== END 2022-03-11 12:56 | disposition expired | DRG 871 ==
LOC: FB.ED 22:16 → FB.MS 22:49
PROVIDERS: ADMIT Family Medicine; ATTEND Student in an Organized Health Care Education/Training Program
DX: R10.84 Generalized abdominal pain (principal); R06.02 Shortness of breath; A41.9 Sepsis, unspecified organism; I50.41 Acute combined systolic (congestive) and diastolic (congestive) heart failure; K55.9 Vascular disorder of intestine, unspecified; N17.9 Acute kidney failure, unspecified; I13.0 Hypertensive heart and chronic kidney disease with heart failure and stage 1 through stage 4 chronic kidney disease, or unspecified chronic kidney disease; K59.04 Chronic idiopathic constipation; Z51.5 Encounter for palliative care; Z66 Do not resuscitate; N18.31 Chronic kidney disease, stage 3a; Z20.822 Contact with and (suspected) exposure to COVID-19; N20.0 Calculus of kidney; I45.10 Unspecified right bundle-branch block; I65.22 Occlusion and stenosis of left carotid artery; G43.909 Migraine, unspecified, not intractable, without status migrainosus; E66.9 Obesity, unspecified; K57.90 Diverticulosis of intestine, part unspecified, without perforation or abscess without bleeding; H52.4 Presbyopia; Z96.1 Presence of intraocular lens; K59.09 Other constipation; K21.9 Gastro-esophageal reflux disease without esophagitis; Z86.19 Personal history of other infectious and parasitic diseases; Z85.46 Personal history of malignant neoplasm of prostate; Z98.49 Cataract extraction status, unspecified eye; Z90.49 Acquired absence of other specified parts of digestive tract; Z88.2 Allergy status to sulfonamides; Z88.8 Allergy status to other drugs, medicaments and biological substances; Z98.890 Other specified postprocedural states; Z79.82 Long term (current) use of aspirin; Z79.02 Long term (current) use of antithrombotics/antiplatelets; Z79.899 Other long term (current) drug therapy; Z86.73 Personal history of transient ischemic attack (TIA), and cerebral infarction without residual deficits; Z68.38 Body mass index [BMI] 38.0-38.9, adult; Z87.440 Personal history of urinary (tract) infections
CPT/HCPCS: 36415; 51702; 71045; 80053; 83605; 83880; 84484; 85025; 96374; 96375; 99285; J1885; J1940; J2270; 74018; 74176; 80048; 81001; 82947; 83735; 84100; 87040; 93005; 93010; 93308; 94640; 99223; 99233; 99238; 99284; A9270-GY; J1650; J2060; J2543; J3010; J3490; J7030; J7040; J7620; Q9963; U0002